=== PATIENT | female | born 1945 | race Caucasian/White ===

== ENCOUNTER → 2018-01-06 11:40 | Outpatient (REF) | payer MEDICARE, SELFPAY | LOC: LBN 11:40 | PROVIDERS: PCP Family Medicine; Visit Provider Family Medicine | DX: E11.40 Type 2 diabetes mellitus with diabetic neuropathy, unspecified (principal) | CPT/HCPCS: 83036 ==

== ENCOUNTER → 2018-01-07 11:36 | Outpatient (REF) | payer MEDICARE, SELFPAY ==
[2018-01-07 12:29] LABS: TSH (W/Ref FT4) 9.11 uIU/mL (0.358-3.74)
== END ==
LOC: LBN 11:36
PROVIDERS: PCP Family Medicine; Visit Provider Family Medicine
DX: R63.5 Abnormal weight gain (principal)
CPT/HCPCS: 84439; 84443

== ENCOUNTER 2018-02-19 08:10 | Outpatient (REF) | payer MEDICARE, SELFPAY ==
[2018-02-19 08:47] LABS: Hemoglobin A1C 7.6 % (4.5-6.2)
== END 2018-02-19 08:30 ==
LOC: LBN 08:10
PROVIDERS: PCP Family Medicine; Visit Provider Family Medicine
DX: E11.40 Type 2 diabetes mellitus with diabetic neuropathy, unspecified (principal)
CPT/HCPCS: 83036

== ENCOUNTER 2018-05-15 11:41 | Outpatient (REF) | payer MEDICARE, SELFPAY | END 2018-05-15 12:01 | LOC: LBN 11:41 | PROVIDERS: PCP Family Medicine; Visit Provider Family Medicine | DX: N39.0 Urinary tract infection, site not specified (principal) | CPT/HCPCS: 87077; 87086; 87186 ==

== ENCOUNTER 2018-05-19 15:16 | Outpatient (REF) | payer MEDICARE, BC, SELFPAY ==
[2018-05-19 15:37] LABS: Abs Immature Grans 0.01 k/cumm (0.0-0.09); Absolute Basophil Count 0.04 k/cumm (0.0-0.2); Absolute Eosinophil Count 0.28 k/cumm (0.0-0.7); Absolute Lymphocyte Count 1.46 k/cumm (1.2-3.4); Absolute Monocyte Count 0.52 k/cumm (0.11-0.7); Absolute Neutrophil Count 4.12 k/cumm (1.2-6.7); Basophils % 0.6; Eosinophils % 4.4; HCT 45.2 % (36.0-46.0); HGB 14.5 g/dL (12.0-15.5); Immature Grans % 0.2; Lymphocytes % 22.7; Mean Corp. HGB Concentration 32.1 g/dL (32.0-36.0); Mean Corpuscular Hemoglobin 30.9 pg (27.0-33.0); Mean Corpuscular Volume 96.2 fL (80-95); Mean Platelet Volume 12.8 fL (8.0-11.0); Monocytes % 8.1; Platelet Count 151 x1000/uL (130-400); RBC Distribution Width 13.4 % (11.7-14.6); White Blood Cell Count 6.43 k/cumm (4.4-10.8)
[2018-05-19 15:56] LABS: ALT 35 U/L (12-78); AST 25 U/L (15-37); Alkaline Phosphatase 94 U/L (46-116); Anion Gap 9.4 mmol/L (3-11); BUN 28 mg/dL (7-18); Bilirubin, Total 0.3 mg/dL (0.2-1.0); CO2 27.6 mmol/L (21.0-32.0); Calcium 9.9 mg/dL (8.5-10.1); Chloride 106 mmol/L (98-107); Glucose 207 mg/dL (70-100); Potassium 4.2 mmol/L (3.5-5.1); Sodium 143 mmol/L (136-145); TSH (W/Ref FT4) 10.89 uIU/mL (0.358-3.74)
[2018-05-19 16:16] LABS: FREE T4 1.08 ng/dL (0.76-1.46)
[2018-05-19 16:34] LABS: Hemoglobin A1C 7.8 % (4.5-6.2)
== END 2018-05-19 15:36 ==
LOC: LBN 15:16
PROVIDERS: PCP Family Medicine; Visit Provider Family Medicine
DX: I10 Essential (primary) hypertension (principal); E11.40 Type 2 diabetes mellitus with diabetic neuropathy, unspecified; R53.83 Other fatigue; R63.5 Abnormal weight gain
CPT/HCPCS: 80053; 83036; 84439; 84443; 85025

== ENCOUNTER 2018-05-27 01:19 | Outpatient (CLI) | payer MEDICARE, MEDICAID, SELFPAY ==
--- NOTE | 2018-05-27 09:56 | DI.RAD_ITS ---
SYMPTOMS/DIAGNOSIS: KNEE PAIN RIGHT KNEE: Three views. There is moderate narrowing of the lateral femorotibial joint space. Periarticular spurring is seen involving all three joint compartments. There does appear to be moderately severe narrowing of the patellofemoral joint. Chondrocalcinosis is present. Vascular calcifications are seen in the soft tissues. IMPRESSION: Moderately severe degenerative changes of the right knee. LEFT KNEE: Three views. There is mild joint space narrowing and periarticular spurring involving all three joint compartments. Chondrocalcinosis is seen in the femorotibial joint. The bones appear intact. Vascular calcifications are present. IMPRESSION: Moderate degenerative changes of the left knee.
== END 2018-05-27 01:39 ==
PROVIDERS: PCP Family Medicine; Visit Provider Family Medicine
DX: M25.561 Pain in right knee (principal); M25.562 Pain in left knee; M17.0 Bilateral primary osteoarthritis of knee
CPT/HCPCS: 73562

== ENCOUNTER 2018-06-09 11:15 | Emergency (ER) | payer MEDICARE, MEDICAID, SELFPAY ==
[2018-06-09 11:25] VITALS: BP 143/83; PULSE 101; RESP 16; TEMP 36.4; O2SAT 96
--- NOTE | 2018-06-09 11:39 | DI.RAD_ITS ---
SYMPTOMS/DIAGNOSIS: FALL ON KNEE, TENDER TO PALPATION OVER PATELLA AND LATERAL ELBOW LEFT ELBOW: Three views. No priors. There is a comminuted oblique fracture of the lateral aspect of the distal humerus. It appears to extend from the lateral supracondylar region inferiorly and medially to the intercondylar region of the left humerus. The fracture appears comminuted. The largest fracture fragment is significantly displaced proximally and appears to be rotated. There also are osseous fragments seen at the region of the olecranon which may represent a nondisplaced fracture. There is soft tissue swelling noted. IMPRESSION: 1. Comminuted displaced fracture involving the lateral aspect of the distal left humerus. 2. Question of an ulnar olecranon fracture. RIGHT KNEE: Four views. No acute fracture or dislocation is seen. There is periarticular spurring involving all three joint compartments. Moderate narrowing of the lateral femoral tibial joint space and marked narrowing of the patellofemoral joint space is noted. No acute fracture or dislocation. There are vascular calcifications present. There is edema seen in the prepatellar soft tissues. IMPRESSION: 1. No acute fracture or dislocation. 2. Moderately severe osteoarthritis of the right knee.
--- NOTE | 2018-06-09 11:41 | W.ED.GENAD ---
Discharge Plan Disposition Patient Disposition: HOME Discharge Details Chief Complaint: Orthopedic Clinical Impression: Closed fracture of left elbow, Contusion of knee, right Primary Care Provider: Yani Osman ED Provider: Tom Stanley Home Meds and New Rx's Prescriptions: Continued atorvastatin 80 MG tablet 40 mg PO DAILY RF: 0 blood-glucose meter [Contour Next USB Meter] 1 EACH misc 1 ea Miscellaneous DAILY RF: 0 lancets 1 EACH misc 1 ea Miscellaneous DAILY Qty: 100 RF: 0 aspirin [Aspirin Low-Strength] 81 MG tablet,chewable 81 mg PO DAILY RF: 0 Centrum Complete 1 EACH tablet 1 tab-cap PO DAILY RF: 0 biotin 10,000 MCG tablet,disintegrating PO DAILY RF: 0 Lactaid 3,000 UNIT tablet,chewable 9,000 unit PO AC RF: 0 Januvia 25 MG tablet 100 mg PO DAILY RF: 0 sulfasalazine 500 mg Tablet 500 mg PO BID RF: 0 cetirizine 10 mg Tablet 10 mg PO DAILY RF: 0 Lactaid Fast Act 9,000 unit Tablet 9,000 unit PO TID RF: 0 calcium polycarbophil [FiberCon] 625 mg Tablet 625 mg PO TID RF: 0 ergocalciferol (vitamin D2) [Vitamin D2] 50,000 unit Capsule 1 cap PO .MONTHLY RF: 0 levothyroxine 100 MCG tablet 112 mcg PO DAILY RF: 0 furosemide 20 MG tablet 10 mg PO DAILY Qty: 60 RF: 0 metoprolol succinate 25 MG tablet extended release 24 hr 12.5 mg PO DAILY Qty: 90 RF: 0 potassium chloride [Klor-Con M10] 10 MEQ tablet,ER particles/crystals 10 meq PO DAILY Qty: 30 RF: 0 Eliquis 5 MG tablet 5 mg PO BID Qty: 60 RF: 2 venlafaxine [Effexor XR] 37.5 MG capsule,extended release 24hr 37.5 mg PO DAILY Qty: 0 RF: 0 glimepiride 2 MG tablet 3 mg PO BID Qty: 0 RF: 0 Discharge Instructions Instructions: Elbow Fracture in Adults (ED), Fall Prevention for Older Adults (ED) Additional Instructions: Keep splint intact and use sling until you follow-up with orthopedics. Call orthopedics tomorrow to arrange follow-up appointment. Return to the ER for any worsening or new concerning symptoms. Referrals: Yani Osmna MD, DC [Primary Care Provider] - Wallace Kennedy MD [ [facility] STAFF PHYSICIAN] - Medical Decision Making 11:40 -- 73yo f here after fall this am with left elbow pain. Tenderness and crepitus over lateral elbow. N/V intact distally. Also with tenderness over patella. Patellar tendon function intact. Concern for fracture of left elbow. Plan to xray. Consider right patellar fx. Plan to xray. 12:50 -- Knee xray interpreted by radiology: neg. elbow xray interpreted by radiology: fracture. I called and spoke with Dr. Kennedy who reviewed xray and recommends CT elbow, splint, sling and outpt follow-up. CT elbow interpreted by radiology: FINDINGS: There is a comminuted fracture involving the distal humerus. The fracture extends from the lateral aspect of the lateral supracondylar region inferiorly and medially into the intercondylar region of the humerus. There is a large fracture component which appears displaced proximally. This fracture fragment appears to be composed of a portion of the articular surface of the trochlea. There are also fracture fragments more moderately displaced laterally. The proximal radius appears intact as does the proximal ulna. There is a curvilinear calcification adjacent to the acromion which does not appear to be a fracture fragment. This may reflect calcification within the triceps tendon. There is adjacent soft tissue swelling present. The bones appear normally mineralized. IMPRESSION: Comminuted displaced fracture involving the lateral aspect of the distal humerus as described above. Elbow splint and sling applied by me. Neurovasc intact post splint application. HPI General Mode of arrival: ambulatory. Date/Time Provider Initiated Documentation: 06/09/18 11:39. Limitations to Documentation: no limitations. Information obtained by: patient. HPI Narrative: 73-year-old female on [place] presents after mechanical trip and fall that occurred this morning it 830. Patient notes she tripped on a rug and fell to the ground. She landed on her knees and left elbow. Her chief complaint today is left elbow pain. Pain is moderate and worse on palpation and with attempted movement. Pain described as ache. She has no associated numbness or weakness of her fingers. She also notes some bilateral knee pain right greater than left. She did not hit her head during the fall, has no headache or neck pain. No back pain. No hip or pelvic pain. Related Data Home Medications Medication Instructions Recorded Confirmed atorvastatin 40 mg PO DAILY tab-cap 08/23/15 06/09/18 blood-glucose meter [Contour Next ea 08/23/15 06/07/17 USB Meter] lancets #100 ea 08/23/15 06/07/17 Centrum Complete 1 tab-cap PO DAILY tab-cap 10/13/15 06/09/18 aspirin [Aspirin Low-Strength] 81 mg PO DAILY tab-cap 10/13/15 06/09/18 biotin 0 PO DAILY 10/13/15 Lactaid 9,000 unit PO AC tab.chew 12/28/15 06/09/18 Eliquis 5 mg PO BID #60 tab 03/21/17 06/09/18 furosemide 10 mg PO DAILY #60 tab 03/21/17 06/09/18 glimepiride 3 mg PO BID #0 tab-cap 03/21/17 06/09/18 metoprolol succinate 12.5 mg PO DAILY #90 tabcr 03/21/17 06/09/18 potassium chloride [Klor-Con M10] 10 meq PO DAILY #30 tabcr 03/21/17 06/09/18 venlafaxine [Effexor XR] 37.5 mg PO DAILY #0 tab-cap 03/21/17 06/09/18 Januvia 100 mg PO DAILY 06/09/18 06/09/18 Lactaid Fast Act 9,000 unit PO TID 06/09/18 06/09/18 calcium polycarbophil [FiberCon] 625 mg PO TID 06/09/18 06/09/18 cetirizine 10 mg PO DAILY 06/09/18 06/09/18 ergocalciferol (vitamin D2) 1 cap PO .MONTHLY 06/09/18 06/09/18 [Vitamin D2] levothyroxine 112 mcg PO DAILY 06/09/18 06/09/18 sulfasalazine 500 mg PO BID 06/09/18 06/09/18 Previous Rx's Medication Instructions Recorded Eliquis 5 mg PO BID #60 tab 03/21/17 furosemide 10 mg PO DAILY #60 tab 03/21/17 glimepiride 3 mg PO BID #0 tab-cap 03/21/17 metoprolol succinate 12.5 mg PO DAILY #90 tabcr 03/21/17 potassium chloride [Klor-Con M10] 10 meq PO DAILY #30 tabcr 03/21/17 venlafaxine [Effexor XR] 37.5 mg PO DAILY #0 tab-cap 03/21/17 Allergies Allergy/AdvReac Type Severity Reaction Status Date / Time erythromycin base Allergy Unknown Verified 06/09/18 11:27 ibuprofen [From Motrin] Allergy Unknown Verified 06/09/18 11:27 lactose AdvReac Unknown Intolerance Unverified 06/09/18 11:27 opium tincture AdvReac Unknown Mental Unverified 06/09/18 11:27 Status Changes SEASONAL ALLERGIES Allergy Mild Uncoded 06/09/18 11:27 General Stated Complaint: Orthopedic ANASTACIA: 4 Review of Systems Musculoskeletal Reports as per HPI Integumentary/Breasts Reports other (no laceration) Neurologic Denies sensory deficit [facility] Medical History Chronic fatigue, unspecified DM II (diabetes mellitus, type II), controlled Essential hypertension Hyperlipidemia Hypothyroidism Lactose intolerance Obesity (BMI 30-39.9) Osteoarthritis of knee Other amnesia Surgical History Colonoscopy - MAC (06/07/17) Social History Smoking/Tobacco Use Status: Never Exam Const General: cooperative and no acute distress HENMT Head: normocephalic and atraumatic Mouth: moist mucous membranes Neck Neck: trachea midline and supple Resp Auscultation: clear to auscultation bilaterally, no rales, no rhonchi and no wheezes Cardio Rate: regular rate and not tachycardic Rhythm: regular rhythm Pulses: radial pulses present on the left 2+ Skin General skin exam: no rashes or lesions noted Neuro General: alert, awake, oriented x3 and tone normal Speech: speech normal Sensory Exam: no sensory deficits noted (distal LUE) Extrem General: no edema Left upper extremity: elbow/forearm Details: tenderness Location: of the lateral epicondyle, swelling Location: of the distal humerus and of the lateral epicondyle and abnormal ROM Details: held in an abnormal fashion Details: in flexion and in pronation and pain with passive ROM Details: with extension and with supination; no lacerations Right lower extremity: knee Details: tenderness Location: of the patella Details: inferiorly, normal ROM, knee ligament exam normal and ecchymosis (bruise anteriorly); no swelling and no crepitus Course Vital Signs Temperature 36.4 C L 06/09/18 11:25 Pulse 101 H 06/09/18 11:25 Respiratory Rate 16 06/09/18 11:25 Blood Pressure 143/83 H 06/09/18 11:25 Pulse Oximetry 96 06/09/18 11:25 Temperature 36.4 C L 06/09/18 11:25 Temperature Source Skin 06/09/18 11:25 Pulse 101 H 06/09/18 11:25 Respiratory Rate 16 06/09/18 11:25 Respiratory Effort 06/09/18 11:25 Blood Pressure 143/83 H 06/09/18 11:25 Blood Pressure Position Sitting 06/09/18 11:25 Pulse Oximetry 96 06/09/18 11:25 Oxygen Delivery Method Room Air 06/09/18 11:25 Oxygen Flow Rate 0 06/09/18 11:25 Pain Level 8 06/09/18 11:25
--- NOTE | 2018-06-09 12:44 | DI.CT_ITS ---
SYMPTOMS/DIAGNOSIS: FRACTURE ELBOW, ORTHO REQUESTS CT CT SCAN OF THE LEFT ELBOW: Multiple contiguous axial images of the left elbow were obtained. Sagittal and coronal reformatted images were evaluated on the Siemens workstation. The study is limited due to patient positioning. The patient was unable to straighten her arm. The elbow is held in flexion during the examination. There is artifact from the patient's body. FINDINGS: There is a comminuted fracture involving the distal humerus. The fracture extends from the lateral aspect of the lateral supracondylar region inferiorly and medially into the intercondylar region of the humerus. There is a large fracture component which appears displaced proximally. This fracture fragment appears to be composed of a portion of the articular surface of the trochlea. There are also fracture fragments more moderately displaced laterally. The proximal radius appears intact as does the proximal ulna. There is a curvilinear calcification adjacent to the acromion which does not appear to be a fracture fragment. This may reflect calcification within the triceps tendon. There is adjacent soft tissue swelling present. The bones appear normally mineralized. IMPRESSION: Comminuted displaced fracture involving the lateral aspect of the distal humerus as described above.
[2018-06-09] MEDS: Acetaminophen 325 MG TAB 650 MG PO (12:59)
--- NOTE | 2018-06-09 14:33 | PDOC.ERCMPRO ---
Care Management Progress Note 06/09-Selin came to the emergency department today after a fall. She resides in Level 3 at the [facility]. Selin has a closed fracture of the left elbow. Selin will need ortho follow up, she has been placed on Dr. Kennedy's list. Dr. Kennedy's office will call the [facility] for f/u. Called the [facility] and spoke with Ashleigh. Ashleigh states she will call Selin's sister to come and pick her up. Also discussed calling report. Ashleigh requested that nursing call the [facility] and ask for Level 3, then ask for the charge nurse. Shonna Ching RN is aware and will call report to the [facility].
== END 2018-06-09 15:39 | disposition home or self-care (01) ==
PROVIDERS: Emergency Provider Student in an Organized Health Care Education/Training Program; PCP Family Medicine
DX: S42.422A Displaced comminuted supracondylar fracture without intercondylar fracture of left humerus, initial encounter for closed fracture (principal); S80.01XA Contusion of right knee, initial encounter; W01.198A Fall on same level from slipping, tripping and stumbling with subsequent striking against other object, initial encounter; E11.9 Type 2 diabetes mellitus without complications; Z79.84 Long term (current) use of oral hypoglycemic drugs; I10 Essential (primary) hypertension
CPT/HCPCS: 99284; 73080; 73200; 73564; L3650

== ENCOUNTER 2018-06-16 12:50 | Outpatient (REF) | payer MEDICARE, MEDICAID, SELFPAY ==
[2018-06-16 14:15] LABS: Bilirubin Negative (Negative); Blood Negative (Negative); Clarity Cloudy; Glucose Negative (Negative); Ketones Trace mg/dL (Negative); Leukocyte Esterase Trace (Negative); Nitrite Negative (Negative); Specific Gravity >= 1.030 (1.005-1.025); Urobilinogen 0.2 EU/dL (Up TO 0.2); pH 5.5 (5-8)
[2018-06-16 14:36] LABS: Bacteria Few HPF (Negative); C & S Indicated? Yes; Casts Negative LPF (Negative); Crystals Many Amorphous HPF (Negative); Epithelial Cells Rare HPF (Negative); Mucus Trace (Negative); RBC Negative (0-2)
== END 2018-06-16 13:10 ==
LOC: LBN 12:50
PROVIDERS: PCP Family Medicine; Visit Provider Family Medicine
DX: N39.0 Urinary tract infection, site not specified (principal)
CPT/HCPCS: 87077; 81003; 81015; 87086; 87186

== ENCOUNTER 2018-06-16 13:23 | Emergency (ER) | payer MEDICARE, MEDICAID, SELFPAY ==
[2018-06-16 13:25] VITALS: BP 143/76; PULSE 108; RESP 16; TEMP 36.6; O2SAT 96
--- NOTE | 2018-06-16 14:28 | W.ED.GENAD ---
Discharge Plan Disposition Patient Disposition: HOME Condition: Stable Discharge Details Chief Complaint: Orthopedic Clinical Impression: Swelling of left hand, History of humerus fracture, UTI (urinary tract infection) Reason For Visit: SUNDEEP Primary Care Provider: Yani Osman ED Provider: Mariza Swartz Home Meds and New Rx's Prescriptions: New cephalexin [Keflex] 500 mg capsule 500 mg PO BID 5 Days Qty: 10 RF: 0 Continued atorvastatin 80 MG tablet 40 mg PO DAILY RF: 0 blood-glucose meter [Contour Next USB Meter] 1 EACH misc 1 ea Miscellaneous DAILY RF: 0 lancets 1 EACH misc 1 ea Miscellaneous DAILY Qty: 100 RF: 0 aspirin [Aspirin Low-Strength] 81 MG tablet,chewable 81 mg PO DAILY RF: 0 Centrum Complete 1 EACH tablet 1 tab-cap PO DAILY RF: 0 biotin 10,000 MCG tablet,disintegrating PO DAILY RF: 0 Lactaid 3,000 UNIT tablet,chewable 9,000 unit PO AC RF: 0 Januvia 25 MG tablet 100 mg PO DAILY RF: 0 sulfasalazine 500 mg Tablet 500 mg PO BID RF: 0 cetirizine 10 mg Tablet 10 mg PO DAILY RF: 0 Lactaid Fast Act 9,000 unit Tablet 9,000 unit PO TID RF: 0 calcium polycarbophil [FiberCon] 625 mg Tablet 625 mg PO TID RF: 0 ergocalciferol (vitamin D2) [Vitamin D2] 50,000 unit Capsule 1 cap PO .MONTHLY RF: 0 levothyroxine 100 MCG tablet 112 mcg PO DAILY RF: 0 furosemide 20 MG tablet 10 mg PO DAILY Qty: 60 RF: 0 metoprolol succinate 25 MG tablet extended release 24 hr 12.5 mg PO DAILY Qty: 90 RF: 0 potassium chloride [Klor-Con M10] 10 MEQ tablet,ER particles/crystals 10 meq PO DAILY Qty: 30 RF: 0 Eliquis 5 MG tablet 5 mg PO BID Qty: 60 RF: 2 venlafaxine [Effexor XR] 37.5 MG capsule,extended release 24hr 37.5 mg PO DAILY Qty: 0 RF: 0 glimepiride 2 MG tablet 3 mg PO BID Qty: 0 RF: 0 Discharge Instructions Instructions: Arm Fracture in Adults (ED), Urinary Tract Infection in Women (ED) Additional Instructions: Keep the Ed wrap in place from your hand to your upper arm. You possibly have a urinary tract infection. Your urine was sent for a culture. You have been started on antibiotics for this. If your culture is negative or recommends a different antibiotic, you will be notified. Follow-up with your scheduled appointment with the orthopedist Dr. Ford tomorrow. Return immediately to the emergency department with any worsening or new concerning symptoms. Discharge Data Discharge Date/Time-TO BE ENTERED AT DEPARTURE: 06/16/18 16:38 Discharge Physician: Mariza Swartz Medical Decision Making 73-year-old female 1 week s/p distal humerus fracture who presents for evaluation of progressive left hand swelling. Patient has a history of dementia and is from the [facility] and has an appointment with Dr. Ford tomorrow for this left hand swelling. There was some reports from EMS that nursing staff was concerned about confusion. Patient does admit to this and states she has a history of dementia, but states she thought it was dark in her room and was midnight but it was noon, and she states that maybe where the confusion came from. Otherwise she is alert and oriented x3 and is able to describe her fall last week, her progressive hand swelling over the past few days, and that she has an appointment with orthopedics tomorrow. She has no focal deficits, no meningeal signs, and no other acute complaints. There is a note in the computer today from Dr. Osman and her assessment of patient notes that she is confused at times which appears to be her baseline mental status recently but was found today to be competent to make decisions. Discussed with Dr. Ford and he recommends that Ed wrap be placed from distal hand up to upper arm. The Ed wrap had been in her mid forearm, so the distal Ed wrap will likely help with some swelling. He states that as patient is on Eliquis, she may need different orthopedic referral. He will evaluate patient in the office tomorrow and discuss this with her further. No other acute recommendations at this time. Pt states she had a cath specimen urinalysis done yesterday at the group home. Urinalysis just resulted in the computer from yesterday and does note 5-10 WBCs, trace leukocyte esterase, and sent for urine culture. Patient has no urinary symptoms, fever and appears nontoxic. Repeat heart rate 90s. Will give a dose of Keflex and send back to [facility] with Keflex prescription. Medical Records Medical records reviewed: Yes I reviewed the patient's medical records. Lab Data Lab results reviewed: Yes I reviewed the patient's lab results. HPI General Mode of arrival: EMS. Date/Time Provider Initiated Documentation: 06/16/18 13:38. Limitations to Documentation: no limitations. Information obtained by: patient. HPI Narrative: Patient is a 71-year-old female with a history of Alzheimer's dementia, diabetes, hypertension, high cholesterol, hypothyroidism, obesity who presents for evaluation of left hand swelling status post left distal humerus fracture 1 week ago. Patient was seen in the ED at that time and had a long arm splint placed. She states she has had progressive left hand swelling since then. She denies any numbness or worsening pain. Patient was sent from the [facility] for this evaluation. She does have an appoint with Dr. Ford tomorrow in the office for this worsening left hand swelling. There is also some reports that nursing staff was concerned about some confusion. Patient has a history of Alzheimer's dementia. She states she had a urine catheter specimen done at the [facility] yesterday. Patient states she is aware of some of her confusion at times but she is able to states she understands why she is here and otherwise states she denies any fever, chest pain, shortness of breath, abdominal pain, urinary symptoms and states she has been eating and drinking normally. Related Data Home Medications Medication Instructions Recorded Confirmed atorvastatin 40 mg PO DAILY tab-cap 08/23/15 06/09/18 blood-glucose meter [Contour Next ea 08/23/15 06/07/17 USB Meter] lancets #100 ea 08/23/15 06/07/17 Centrum Complete 1 tab-cap PO DAILY tab-cap 10/13/15 06/09/18 aspirin [Aspirin Low-Strength] 81 mg PO DAILY tab-cap 10/13/15 06/09/18 biotin 0 PO DAILY 10/13/15 Lactaid 9,000 unit PO AC tab.chew 12/28/15 06/09/18 Eliquis 5 mg PO BID #60 tab 03/21/17 06/09/18 furosemide 10 mg PO DAILY #60 tab 03/21/17 06/09/18 glimepiride 3 mg PO BID #0 tab-cap 03/21/17 06/09/18 metoprolol succinate 12.5 mg PO DAILY #90 tabcr 03/21/17 06/09/18 potassium chloride [Klor-Con M10] 10 meq PO DAILY #30 tabcr 03/21/17 06/09/18 venlafaxine [Effexor XR] 37.5 mg PO DAILY #0 tab-cap 03/21/17 06/09/18 Januvia 100 mg PO DAILY 06/09/18 06/09/18 Lactaid Fast Act 9,000 unit PO TID 06/09/18 06/09/18 calcium polycarbophil [FiberCon] 625 mg PO TID 06/09/18 06/09/18 cetirizine 10 mg PO DAILY 06/09/18 06/09/18 ergocalciferol (vitamin D2) 1 cap PO .MONTHLY 06/09/18 06/09/18 [Vitamin D2] levothyroxine 112 mcg PO DAILY 06/09/18 06/09/18 sulfasalazine 500 mg PO BID 06/09/18 06/09/18 cephalexin [Keflex] 500 mg PO BID 5 Days #10 cap 06/16/18 Previous Rx's Medication Instructions Recorded Eliquis 5 mg PO BID #60 tab 03/21/17 furosemide 10 mg PO DAILY #60 tab 03/21/17 glimepiride 3 mg PO BID #0 tab-cap 03/21/17 metoprolol succinate 12.5 mg PO DAILY #90 tabcr 03/21/17 potassium chloride [Klor-Con M10] 10 meq PO DAILY #30 tabcr 03/21/17 venlafaxine [Effexor XR] 37.5 mg PO DAILY #0 tab-cap 03/21/17 cephalexin [Keflex] 500 mg PO BID 5 Days #10 cap 06/16/18 Allergies Allergy/AdvReac Type Severity Reaction Status Date / Time erythromycin base Allergy Unknown Verified 06/09/18 11:27 ibuprofen [From Motrin] Allergy Unknown Verified 06/09/18 11:27 lactose AdvReac Unknown Intolerance Unverified 06/09/18 11:27 opium tincture AdvReac Unknown Mental Unverified 06/09/18 11:27 Status Changes SEASONAL ALLERGIES Allergy Mild Uncoded 06/09/18 11:27 General Stated Complaint: Orthopedic ANASTACIA: 4 Review of Systems Review of Systems All systems reviewed & are unremarkable except as noted in HPI and below Constitutional Reports as per HPI, Denies chills and Denies fever(s) Eyes Denies blurry vision ENT Denies dizziness, Denies sore throat and Denies throat swelling Cardiovascular Denies chest pain and Denies dyspnea Respiratory Denies dyspnea Gastrointestinal Denies abdominal pain, Denies diarrhea and Denies vomiting Genitourinary Denies hematuria and Denies dysuria Musculoskeletal Denies back pain, Denies numbness and Reports other (Left hand swelling) Integumentary/Breasts Denies lesions and Denies rash Neurologic Denies dizziness and Denies numbness Allergic/Immunologic Denies throat swelling [facility] Medical History Chronic fatigue, unspecified DM II (diabetes mellitus, type II), controlled Essential hypertension Hyperlipidemia Hypothyroidism Lactose intolerance Obesity (BMI 30-39.9) Osteoarthritis of knee Other amnesia Surgical History History of laminectomy (Acute) Colonoscopy - MAC (06/07/17) Social History Smoking/Tobacco Use Status: Never alcohol intake: current alcohol intake frequency: holidays/special occasions only substance use type: does not use Exam Const General: cooperative, healthy appearing and no acute distress HENMN Head: normal to inspection Face and sinus: normal facial exam Eyes General: appearance normal, both eyes and all related structures Pupils: PERRL EOM: EOM intact bilaterally Neck Neck: normal visual inspection and No submandibular swelling Lymphatic: no lymphadenopathy noted Chest Chest: normal inspection of the chest and no tenderness Resp Effort & Inspection: normal respiratory effort and able to speak in complete sentences Auscultation: clear to auscultation bilaterally Cardio Rate: regular rate Rhythm: regular rhythm GI Inspection: normal to inspection Palpation: soft, not firm, not rigid and nontender Auscultation: normal bowel sounds Skin General skin exam: no rashes or lesions noted Neuro General: alert, awake and oriented x3 Cognition: normal cognition Speech: speech normal Motor: muscle tone normal throughout Sensory Exam: no sensory deficits noted Extrem Other: Left upper extremity in a posterior long-arm splint. Moderate left hand edema noted but is nonpitting. Normal cap refill left hand. Left radial and ulnar pulses intact. Healing ecchymosis noted to left upper arm above splint Psych Appearance: grossly normal Mental Status: mental status grossly normal Speech and Movement: speech and movement normal Affect: normal affect Course Vital Signs Temperature 97.9 F 06/16/18 13:25 Pulse 108 H 06/16/18 13:25 Respiratory Rate 16 06/16/18 13:25 Blood Pressure 143/76 H 06/16/18 13:25 Pulse Oximetry 96 06/16/18 13:25 Temperature 97.9 F 06/16/18 13:25 Temperature Source Temporal Artery Scan 06/16/18 13:25 Pulse 108 H 06/16/18 13:25 Respiratory Rate 16 06/16/18 13:25 Respiratory Effort 06/16/18 13:29 Blood Pressure 143/76 H 06/16/18 13:25 Blood Pressure Position Sitting 06/16/18 13:25 Pulse Oximetry 96 06/16/18 13:25 Oxygen Delivery Method Room Air 06/16/18 13:25 Oxygen Flow Rate 0 06/16/18 13:25 Pain Level 6 06/16/18 13:25
--- NOTE | 2018-06-16 14:39 | NUR.NOTE ---
pt came in with sling on left arm and ulnar gutter splint and left arm she stated that she just cant keep it up and ice on it she didn't think she needed it Nursing Note:
[2018-06-16 15:49] VITALS: BP 132/84; PULSE 98; RESP 16; TEMP 36.9; O2SAT 95
[2018-06-16] MEDS: Cephalexin 500 MG CAP PO (15:56)
== END 2018-06-16 16:38 | disposition home or self-care (01) ==
PROVIDERS: Emergency Provider Physician Assistant; PCP Family Medicine
DX: R22.32 Localized swelling, mass and lump, left upper limb (principal); S42.422 Displaced comminuted supracondylar fracture without intercondylar fracture of left humerus; N39.0 Urinary tract infection, site not specified; F02.80 Dementia in other diseases classified elsewhere, unspecified severity, without behavioral disturbance, psychotic disturbance, mood disturbance, and anxiety; G30.9 Alzheimer's disease, unspecified
CPT/HCPCS: 99283

== ENCOUNTER → 2018-06-17 09:51 | Outpatient (BNVA) | payer MEDICARE, MEDICAID, SELFPAY | PROVIDERS: PCP Family Medicine; Referring Provider Family Medicine; Visit Provider Orthopaedic Surgery | DX: S42.402A Unspecified fracture of lower end of left humerus, initial encounter for closed fracture (principal); W01.0XXA Fall on same level from slipping, tripping and stumbling without subsequent striking against object, initial encounter; E11.9 Type 2 diabetes mellitus without complications; Z79.84 Long term (current) use of oral hypoglycemic drugs; Z79.01 Long term (current) use of anticoagulants; I10 Essential (primary) hypertension | CPT/HCPCS: 29105; 99201; 99214; Q4018 ==

== ENCOUNTER 2018-06-23 11:35 | Outpatient (REF) | payer MEDICARE, MEDICAID, SELFPAY ==
[2018-06-23 13:50] LABS: TSH (W/Ref FT4) 10.09 uIU/mL (0.358-3.74)
[2018-06-23 14:12] LABS: FREE T4 1.09 ng/dL (0.76-1.46)
== END 2018-06-23 11:55 ==
LOC: LBN 11:35
PROVIDERS: PCP Family Medicine; Visit Provider Family Medicine
DX: R63.5 Abnormal weight gain (principal)
CPT/HCPCS: 84439; 84443

== ENCOUNTER 2018-08-28 12:29 | Outpatient (REF) | payer MEDICARE, MEDICAID, SELFPAY ==
[2018-08-28 13:51] LABS: Hemoglobin A1C 7.4 % (4.5-6.2)
== END 2018-08-28 12:49 ==
LOC: LBN 12:29
PROVIDERS: PCP Family Medicine; Visit Provider Family Medicine
DX: E11.40 Type 2 diabetes mellitus with diabetic neuropathy, unspecified (principal)
CPT/HCPCS: 83036

== ENCOUNTER 2018-12-19 11:25 | Outpatient (REF) | payer MEDICARE, MEDICAID, SELFPAY ==
[2018-12-19 12:03] LABS: HCT 43.3 % (36.0-46.0)
[2018-12-19 12:22] LABS: ALT 32 U/L (12-78); AST 19 U/L (15-37); Albumin 3.6 g/dL (3.4-5.0); Alkaline Phosphatase 94 U/L (46-116); Anion Gap 9.2 mmol/L (3-11); BUN 14 mg/dL (7-18); Bilirubin, Total 0.5 mg/dL (0.2-1.0); CO2 25.8 mmol/L (21.0-32.0); Calcium 9.4 mg/dL (8.5-10.1); Chloride 107 mmol/L (98-107); Glucose 175 mg/dL (70-100); Potassium 3.9 mmol/L (3.5-5.1); Sodium 142 mmol/L (136-145); Total Protein 6.6 g/dL (6.4-8.2)
[2018-12-19 12:24] LABS: Hemoglobin A1C 6.6 % (4.5-6.2)
[2018-12-19 12:38] LABS: FREE T4 1.19 ng/dL (0.76-1.46)
== END 2018-12-19 11:45 ==
LOC: LBN 11:25
PROVIDERS: PCP Family Medicine; Visit Provider Family Medicine
DX: E11.9 Type 2 diabetes mellitus without complications (principal); R53.83 Other fatigue; I48.91 Unspecified atrial fibrillation
CPT/HCPCS: 80053; 83036; 84439; 84443; 85014; 85018

== ENCOUNTER 2019-01-14 15:53 | Outpatient (REF) | payer MEDICARE, MEDICAID, SELFPAY ==
[2019-01-14 15:01] LABS: FREE T4 1.16 ng/dL (0.76-1.46)
== END 2019-01-14 16:13 ==
LOC: LBN 15:53
PROVIDERS: PCP Family Medicine; Visit Provider Family Medicine
DX: E03.9 Hypothyroidism, unspecified (principal)
CPT/HCPCS: 84439; 84443

== ENCOUNTER 2019-03-16 12:25 | Outpatient (REF) | payer MEDICARE, MEDICAID, SELFPAY ==
[2019-03-16 13:20] LABS: TSH (W/Ref FT4) 8.57 uIU/mL (0.36-3.74)
[2019-03-16 13:53] LABS: FREE T4 0.96 ng/dL (0.76-1.46)
== END 2019-03-16 12:45 ==
LOC: LBN 12:25
PROVIDERS: PCP Family Medicine; Visit Provider Family Medicine
DX: E03.9 Hypothyroidism, unspecified (principal)
CPT/HCPCS: 84439; 84443

== ENCOUNTER 2019-04-01 16:45 | Emergency (ER) | payer MEDICARE, MEDICAID, SELFPAY ==
[2019-04-01 16:50] VITALS: BP 122/78; PULSE 102; RESP 20; TEMP 37; O2SAT 97
--- NOTE | 2019-04-01 17:01 | DI.CT_ITS ---
EXAM: CT HEAD WO CLINICAL HISTORY: trauma TECHNIQUE: Noncontrast COMPARISON: No exams were available for comparison FINDINGS: No intracranial hemorrhage, mass or infarct is. There is prominent atrophy. White matter changes o f small vessel disease is also noted. The ventricles are normal in size given degree of atrophy. Th ere is no evidence of skull fracture. The sinuses and mastoid air cells are unremarkable. IMPRESSION: Atrophy and small vessel disease of white matter. No acute abnormality.
--- NOTE | 2019-04-01 17:05 | W.ED.GENAD ---
Discharge Plan Disposition Patient Disposition: SNF (LEVEL 1) [facility] Condition: Good Discharge Details Chief Complaint: HeadInjury Clinical Impression: Contusion of head Primary Care Provider: Yani Osman ED Provider: Tara Katz Home Meds and New Rx's Prescriptions: Continued atorvastatin 80 MG tablet 40 mg PO DAILY RF: 0 (DME) blood-glucose meter [Contour Next USB Meter] 1 EACH misc 1 ea Miscellaneous DAILY RF: 0 (DME) lancets 1 EACH misc 1 ea Miscellaneous DAILY Qty: 100 RF: 0 aspirin [Aspirin Low-Strength] 81 MG tablet,chewable 81 mg PO DAILY RF: 0 Centrum Complete 1 EACH tablet 1 tab-cap PO DAILY RF: 0 biotin 10,000 MCG tablet,disintegrating 0 PO DAILY RF: 0 Januvia 25 MG tablet 100 mg PO DAILY RF: 0 sulfasalazine 500 mg Tablet 500 mg PO BID RF: 0 cetirizine 10 mg Tablet 10 mg PO DAILY RF: 0 Lactaid Fast Act 9,000 unit Tablet 9,000 unit PO TID RF: 0 calcium polycarbophil [FiberCon] 625 mg Tablet 625 mg PO TID RF: 0 ergocalciferol (vitamin D2) [Vitamin D2] 50,000 unit Capsule 1 cap PO .MONTHLY RF: 0 levothyroxine 100 MCG tablet 112 mcg PO DAILY RF: 0 glucosamine sulfate [Synovacin] 500 mg Capsule 500 mg PO BID RF: 0 fluticasone propionate [Flonase Allergy Relief] 50 mcg/actuation [place],Suspension INTRANASAL RF: 0 diclofenac sodium [Voltaren] 1 % Gel 2 g TOPICAL QID RF: 0 metoprolol succinate 25 MG tablet extended release 24 hr 12.5 mg PO DAILY Qty: 90 RF: 0 potassium chloride [Klor-Con M10] 10 MEQ tablet,ER particles/crystals 10 meq PO DAILY Qty: 30 RF: 0 Eliquis 5 MG tablet 5 mg PO BID Qty: 60 RF: 2 glimepiride 2 MG tablet 3 mg PO BID Qty: 0 RF: 0 Discharge Instructions Instructions: Contusion in Adults (ED) Additional Instructions: Encourage hydration. Urinalysis should be done as an outpatient as this was not able to be completed here. If you develop new or worsening symptoms seek care urgently once again. Otherwise, please follow-up with primary care. Referrals: Yani Osman MD, [place] [Primary Care Provider] - Discharge Data Discharge Date/Time-TO BE ENTERED AT DEPARTURE: 04/01/19 20:55 Medical Decision Making Patient is a 74-year-old female, typically resides in the [facility], presenting today with chief complaint of follow-up. Patient is baseline confused and has a history of Alzheimer's. Patient reports that she is been acting at her baseline since the fall. They do report that her mentation typically waxes and wanes. Patient is oriented to person and place but not to time. 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 Nursing staff noted her to have a area of swelling on the posterior scalp. Patient is denying any pain. Denies any visual changes. Denies any nausea vomiting. Is not having any pain elsewhere. On exam, she is quite pleasant, appears in no acute distress. She does have a small area of swelling to the posterior scalp but otherwise, trauma exam is normal. Patient believes she is anticoagulated but does not know why. As this is a concern, plan to obtain CT imaging to rule out intracranial pathology. Will also obtain laboratory evaluation is unclear exactly why the patient fell although it is suspected to be associated with her reaching into her closet Obtained medication list, patient is on Eliquis for atrial fibrillation. EKG obtained and reviewed by Dr. Pacheco. Patient is atrial fibrillation with a rate of 101. No acute ischemic changes noted. CT reviewed by radiologist: FINDINGS: Brain: Small vessel ischemic white matter changes of aging. No evidence for acute infarct. No evidence for acute hemorrhage. Ventricles: Mild to moderate ventriculomegaly and prominent cortical sulci. Bones/joints: Unremarkable. No acute fracture. Sinuses: Visualized sinuses are unremarkable. No fluid levels. Mastoid air cells: Visualized mastoid air cells are well aerated. Soft tissues: Unremarkable. IMPRESSION: No acute intracranial abnormality. Labs reviewed. No acute abnormality noted. She is remained stable and comfortable here. In an attempt to determine why the patient fell, UA was ordered but sample spilled. She is unable to give another sample at this time. She is uncomfortable in the bed and is requesting discharge. Patient can have UA completed at the [facility]. Discussed this with the nursing staff. Patient is requesting discharge. Given her level of confusion, I feel that transfer back to medical personnel is appropriate to ensure that she remains cooperative and give patient oriented. Outpatient urinalysis will be performed. They are given return precautions. Encourage hydration. Other questions and concerns were addressed she is agreement this plan. HPI General Mode of arrival: EMS. Date/Time Provider Initiated Documentation: 04/01/19 17:01. Limitations to Documentation: altered mental status. Information obtained by: patient, RN/MD (called [facility] to discuss) and RN notes reviewed. HPI Narrative: Patient is a pleasantly confused 74-year-old female, brought in via EMS, with history of hypertension, diabetes, hypothyroidism, Alzheimer's, presenting today after fall. Patient reports that she is on an anticoagulant but does not know which one. She believes that this is for atrial fibrillation but is unclear. I have requested medication problem list from the [facility] where patient resides. Is reported from [facility] nursing staff that the patient was in her room, ambulating with a walker and fell backwards. Did not witness the fall but rather heard the fall and found her unresponsive lying on the floor on her left side. He said that her closet door was open and they believe that she has been reaching for something although the patient was not able to tell them how she felt. They noted a bump on the back of her head and called EMS. He said that she was oriented and appropriate initially. They do report that the patient's dementia waxes and wanes and sometimes she is appropriately oriented but frequently is not. 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 She is denying any pain. No visual changes. No nausea. Denies any headache. Is doing quite well although patient is clearly confused. Related Data Home Medications Medication Instructions Recorded Confirmed atorvastatin 40 mg PO DAILY tab-cap 08/23/15 04/01/19 blood-glucose meter [Contour Next ea 08/23/15 04/01/19 USB Meter] lancets #100 ea 08/23/15 04/01/19 Centrum Complete 1 tab-cap PO DAILY tab-cap 10/13/15 04/01/19 aspirin [Aspirin Low-Strength] 81 mg PO DAILY tab-cap 10/13/15 04/01/19 biotin 0 PO DAILY 10/13/15 04/01/19 Eliquis 5 mg PO BID #60 tab 03/21/17 04/01/19 glimepiride 3 mg PO BID #0 tab-cap 03/21/17 04/01/19 metoprolol succinate 12.5 mg PO DAILY #90 tabcr 03/21/17 04/01/19 potassium chloride [Klor-Con M10] 10 meq PO DAILY #30 tabcr 03/21/17 04/01/19 Januvia 100 mg PO DAILY 06/09/18 04/01/19 Lactaid Fast Act 9,000 unit PO TID 06/09/18 04/01/19 calcium polycarbophil [FiberCon] 625 mg PO TID 06/09/18 04/01/19 cetirizine 10 mg PO DAILY 06/09/18 04/01/19 ergocalciferol (vitamin D2) 1 cap PO .MONTHLY 06/09/18 04/01/19 [Vitamin D2] levothyroxine 112 mcg PO DAILY 06/09/18 04/01/19 sulfasalazine 500 mg PO BID 06/09/18 04/01/19 diclofenac sodium [Voltaren] 2 g TOPICAL QID 04/01/19 04/01/19 fluticasone propionate [Flonase INTRANASAL 04/01/19 Allergy Relief] glucosamine sulfate [Synovacin] 500 mg PO BID 04/01/19 04/01/19 Previous Rx's Medication Instructions Recorded Eliquis 5 mg PO BID #60 tab 03/21/17 glimepiride 3 mg PO BID #0 tab-cap 03/21/17 metoprolol succinate 12.5 mg PO DAILY #90 tabcr 03/21/17 potassium chloride [Klor-Con M10] 10 meq PO DAILY #30 tabcr 03/21/17 Allergies Allergy/AdvReac Type Severity Reaction Status Date / Time erythromycin base Allergy Unknown Verified 04/01/19 10:55 ibuprofen [From Motrin] Allergy Unknown Verified 04/01/19 10:55 lactose AdvReac Unknown Intolerance Unverified 04/01/19 10:55 opium tincture AdvReac Unknown Mental Unverified 04/01/19 10:55 Status Changes SEASONAL ALLERGIES Allergy Mild Uncoded 04/01/19 10:55 General Stated Complaint: HeadInjury ANASTACIA: 3 Review of Systems Narrative: hx of Alzheimer's, recurrent confusion is reported to be at baseline per nursing report from the [facility]. Unobtainable due to mental status (hx of Alzheimer's, recurrent confusion is reported to be at baseline per nu) [facility] Medical History Chronic fatigue, unspecified DM II (diabetes mellitus, type II), controlled Essential hypertension Hyperlipidemia Hypothyroidism Lactose intolerance Obesity (BMI 30-39.9) Osteoarthritis of knee Other amnesia Surgical History Colonoscopy - MAC (06/07/17) History of laminectomy (Acute) Social History Smoking/Tobacco Use Status: Never Alcohol Intake: current Alcohol Intake frequency: holidays/special occasions only Drug use: Never Substance use type: does not use Current gender identity: female Do you feel safe in your relationship?: Yes Exam Const General: cooperative, healthy appearing, comfortable, no acute distress, well developed and well groomed Nutritional Appearance: average body habitus and well nourished Orientation: alert, awake, oriented to person, oriented to place, not oriented to time and confused (reports that she is the [employer] HEL[employer] working at the [facility], this was her previous empl) [facility] Head: normal to inspection, no palpable skull fracture and contusion Head images: 1. area of swelling and contusion Ears: hearing grossly normal bilaterally, external ears normal and TM's normal bilaterally General nose exam: external nose normal Face and sinus: normal facial exam and face symmetric Mouth: oral mucosae normal, lip normal and tongue normal Throat: posterior oropharynx normal Eyes General: appearance normal, both eyes and all related structures Visual Ey: normal visual ye by confrontation Alignment and Position: alignment normal Periorbital: periorbital findings normal Eyelids: eyelids normal Conjunctivae: conjunctivae normal Pupils: PERRL EOM: EOM intact bilaterally Neck Neck: normal visual inspection, full ROM, no lymphadenopathy, no meningeal signs, trachea midline and supple Chest Chest: normal inspection of the chest, normal palpation of entire chest wall, no crepitus and no localized rib tenderness Resp Effort & Inspection: normal respiratory effort, able to speak in complete sentences and no respiratory distress Auscultation: clear to auscultation bilaterally, no rales, no rhonchi and no wheezes Cardio Rate: regular rate Rhythm: regular rhythm Heart Sounds: S1 normal and S2 normal GI Inspection: normal to inspection, no abdominal wall ecchymosis, no edema and non-distended Palpation: soft, no hepatosplenomegaly, not firm, no guarding, no pulsatile masses, not rigid and nontender Auscultation: normal bowel sounds Back/Spine/Pelvis Back: no CVA tenderness Cervical Spine: normal cervical lordosis and cervical ROM normal Thoracic/Lumbar Spine: thoracic and lumbar spine normal to inspection, thoraco-lumbar ROM normal, No thoraco-lumbar ROM limited, No thoraco-lumbar spasm and No thoracic spinal tenderness Pelvis: no pain with anterior-posterior compression and no pain with lateral compression Skin General skin exam: ecchymosis (to posterior scalp) Neuro General: alert, awake, oriented Patient Orientation: Person, Place and Confused, gait normal, tone normal and moves all extremities Cranial Nerves: CN's II-XI intact bilaterally Cognition: normal cognition Speech: speech normal Motor: muscle tone normal throughout and strength 5/5 throughout Sensory Exam: no sensory deficits noted (no saddle paresthesias) Extrem General: normal to inspection, full ROM, normal capillary refill, no pedal edema and no calf tenderness Psych Appearance: grossly normal and well kempt Mental Status: mental status grossly normal Speech and Movement: speech and movement normal Course Vital Signs Vital signs: Vital Signs Pulse 80 04/01/19 16:50 Respiratory Rate 04/01/19 16:50 Blood Pressure 122/78 04/01/19 16:50 Pulse 80 04/01/19 16:50 Respiratory Rate 20 04/01/19 16:50 Blood Pressure 122/78 04/01/19 16:50 Pain Level 2 04/01/19 16:50
--- NOTE | 2019-04-01 17:45 | DI.VRAD_ITS ---
PROCEDURE INFORMATION: Exam: CT Head Without Contrast Exam date and time: 04/01/2019 5:03 PM Clinical history: 74 years old, female; Injury or trauma; Fall TECHNIQUE: Imaging protocol: Computed tomography of the head without contrast. COMPARISON: MRI - BRAIN WO CONTRAST 12/24/2015 16:55 FINDINGS: Brain: Small vessel ischemic white matter changes of aging. No evidence for acute infarct. No evidence for acute hemorrhage. Ventricles: Mild to moderate ventriculomegaly and prominent cortical sulci. Bones/joints: Unremarkable. No acute fracture. Sinuses: Visualized sinuses are unremarkable. No fluid levels. Mastoid air cells: Visualized mastoid air cells are well aerated. Soft tissues: Unremarkable. IMPRESSION: No acute intracranial abnormality. Dictated and Authenticated by: Riana Iglesias MD. Ordering:[id number] Pacheco MD
[2019-04-01] MEDS: Normal Saline Flush 10 ML SYR IVP (18:30)
[2019-04-01] MEDS: Normal Saline 1,000 ML 150 ML IV (18:30)
[2019-04-01 18:46] LABS: Abs Immature Grans 0.02 k/cumm (0.0-0.09); Absolute Basophil Count 0.01 k/cumm (0.0-0.2); Absolute Eosinophil Count 0.11 k/cumm (0.0-0.7); Absolute Monocyte Count 0.42 k/cumm (0.11-0.7); Basophils % 0.1; Eosinophils % 1.3; HCT 43.4 % (36.0-46.0); HGB 13.9 g/dL (12.0-15.5); Immature Grans % 0.2; Lymphocytes % 8.1; Mean Corpuscular Hemoglobin 30.6 pg (27.0-33.0); Mean Corpuscular Volume 95.6 fL (80-95); Monocytes % 4.8; Neutrophils % 85.5; Platelet Count 149 x1000/uL (130-400); RBC 4.54 m/cumm (4.00-5.20); RBC Distribution Width 13.5 % (11.7-14.6); White Blood Cell Count 8.66 k/cumm (4.4-10.8)
[2019-04-01 18:59] LABS: ALT 35 U/L (14-59); AST 21 U/L (15-37); Alkaline Phosphatase 109 U/L (46-116); Anion Gap 7.3 mmol/L (3-11); BUN 14 mg/dL (7-18); Bilirubin, Total 0.7 mg/dL (0.2-1.0); CO2 28.7 mmol/L (21.0-32.0); CREATININE 0.81 mg/dL (0.55-1.02); Calcium 9.8 mg/dL (8.5-10.1); Chloride 104 mmol/L (98-107); Glucose 189 mg/dL (70-100); Potassium 4.4 mmol/L (3.5-5.1); Sodium 140 mmol/L (136-145); Total Protein 7.6 g/dL (6.4-8.2)
--- NOTE | 2019-04-01 19:44 | NUR.NOTE ---
Nursing Note: Patient wanting IV out. Explained need for IV to remain. Patient agrees to leave in place. Patient repeated asks when she gets to go home. Pateint informed we are waiting for all test results to come back, then provider will be in to discuss results with her.
--- NOTE | 2019-04-01 20:10 | NUR.NOTE ---
Nursing Note: provider in with patient. Told her urine could be collected by [facility] and brought in for UA.
[2019-04-01 20:50] VITALS: BP 156/84; PULSE 86; RESP 18; O2SAT 95
== END 2019-04-01 20:55 | disposition skilled nursing facility (03) ==
PROVIDERS: Emergency Provider Physician Assistant; PCP Family Medicine
DX: R41.0 Disorientation, unspecified (principal); S00.03XA Contusion of scalp, initial encounter; W22.8XXA Striking against or struck by other objects, initial encounter; I10 Essential (primary) hypertension; E11.9 Type 2 diabetes mellitus without complications; I48.91 Unspecified atrial fibrillation; Z79.84 Long term (current) use of oral hypoglycemic drugs; M17.12 Unilateral primary osteoarthritis, left knee; M17.11 Unilateral primary osteoarthritis, right knee; M25.561 Pain in right knee; M25.562 Pain in left knee
CPT/HCPCS: 20610; 36415; 80053; 96360; 96361; 99214; 99284; 70450; 81003; 85025; J1040

== ENCOUNTER 2019-04-13 12:41 | Outpatient (REF) | payer MEDICARE, MEDICAID, SELFPAY ==
[2019-04-13 14:26] LABS: Bilirubin Negative (Negative); Blood Trace-intact (Negative); Clarity Sl Cloudy (Clear); Glucose 100 mg/dL (Negative); Ketones Negative (Negative); Leukocyte Esterase Trace (Negative); Nitrite Negative (Negative); Specific Gravity 1.025 (1.005-1.025); Urobilinogen 0.2 EU/dL (Up TO 0.2); pH 5.5 (5-8)
[2019-04-13 14:40] LABS: RBC 20-50 HPF (0-2); WBC >50 HPF (0-5)
[2019-04-13 14:41] LABS: Bacteria Many HPF (Negative); C & S Indicated? C&S Done As Ordered; Casts Negative LPF (Negative); Crystals Negative HPF (Negative); Epithelial Cells Few HPF (Negative); Mucus Negative (Negative)
== END 2019-04-13 13:01 ==
LOC: LBN 12:41
PROVIDERS: PCP Family Medicine; Visit Provider Nurse Practitioner Gerontology
DX: R35.0 Frequency of micturition (principal)
CPT/HCPCS: 87077; 81003; 81015; 87086; 87186

== ENCOUNTER 2019-06-09 12:54 | Outpatient (REF) | payer MEDICARE, MEDICAID, SELFPAY ==
[2019-06-09 13:54] LABS: Iron 64 ug/dL (50-170); Total Iron Binding Capacity 269 ug/dL (250-450); Transferrin Sat 24 % (15-50)
[2019-06-09 14:17] LABS: ALT 29 U/L (14-59); AST 16 U/L (15-37); Albumin 3.5 g/dL (3.4-5.0); Alkaline Phosphatase 100 U/L (46-116); Anion Gap 8.3 mmol/L (3-11); BUN 18 mg/dL (7-18); Bilirubin, Total 0.7 mg/dL (0.2-1.0); CO2 28.7 mmol/L (21.0-32.0); CREATININE 0.71 mg/dL (0.55-1.02); Calcium 9.5 mg/dL (8.5-10.1); Chloride 104 mmol/L (98-107); Ferritin 95 ng/mL (8-252); Glucose 288 mg/dL (74-106); Magnesium 1.6 mg/dL (1.8-2.4); Sodium 141 mmol/L (136-145); Total Protein 6.2 g/dL (6.4-8.2); Vitamin B12 559 pg/mL (193-986)
[2019-06-09 14:18] LABS: Hemoglobin A1C 9.2 % (3.8-5.6)
[2019-06-09 14:37] LABS: FREE T4 1.35 ng/dL (0.76-1.46)
== END 2019-06-09 13:14 ==
LOC: LBN 12:54
PROVIDERS: PCP Family Medicine; Visit Provider Family Medicine
DX: D64.9 Anemia, unspecified (principal); R53.83 Other fatigue; E03.9 Hypothyroidism, unspecified; I10 Essential (primary) hypertension; R63.4 Abnormal weight loss; E11.9 Type 2 diabetes mellitus without complications
CPT/HCPCS: 80053; 82607; 82728; 83036; 83540; 83550; 83735; 84439; 84443

== ENCOUNTER 2019-07-11 08:11 | Emergency (ER) | payer MEDICARE, MEDICAID, SELFPAY ==
[2019-07-11] VITALS (53 sets, daily range): BP systolic 115–155; BP diastolic 64–106; PULSE 78–137; RESP 8–34; TEMP 36–36.8; O2SAT 89–96
--- NOTE | 2019-07-11 08:28 | ED.GENADUL_ITS ---
Discharge Plan Disposition Patient Disposition: SNF (LEVEL 1) [facility] Condition: Stable Discharge Details Chief Complaint: Cellulitis Clinical Impression: Bilateral cellulitis of lower leg Primary Care Provider: Janeth Rosas ED Provider: Wicho Pacheco Home Meds and New Rx's Prescriptions: New cephalexin 500 mg capsule 500 mg PO TID 7 Days Qty: 21 RF: 0 Continued (DME) blood-glucose meter [Contour Next USB Meter] 1 EACH misc 1 ea Miscellaneous DAILY RF: 0 (DME) lancets 1 EACH misc 1 ea Miscellaneous DAILY Qty: 100 RF: 0 Centrum Complete 1 EACH tablet 1 tab-cap PO DAILY RF: 0 sulfasalazine 500 mg Tablet 500 mg PO BID RF: 0 cetirizine 10 mg Tablet 10 mg PO DAILY RF: 0 Lactaid Fast Act 9,000 unit Tablet 9,000 unit PO TID RF: 0 calcium polycarbophil [FiberCon] 625 mg Tablet 625 mg PO TID RF: 0 ergocalciferol (vitamin D2) [Vitamin D2] 50,000 unit Capsule 1 cap PO .WEEKLY X 8 WKS RF: 0 glucosamine sulfate [Synovacin] 500 mg Capsule 500 mg PO BID RF: 0 fluticasone propionate [Flonase Allergy Relief] 50 mcg/actuation [place],Suspension 1 spray INTRANASAL BID RF: 0 rivastigmine tartrate 1.5 mg Capsule 1.5 mg PO DAILY RF: 0 atorvastatin 40 mg Tablet 40 mg PO QPM RF: 0 cetirizine 10 mg Tablet 5 mg PO DAILY RF: 0 aspirin [Aspir-81] 81 mg Tablet,Delayed Release (Dr/Ec) 81 mg PO DAILY RF: 0 vitamin B complex Tablet 1 tab PO DAILY RF: 0 Januvia 100 mg Tablet 100 mg PO DAILY RF: 0 levothyroxine 150 mcg Tablet 150 mcg PO HS RF: 0 metoprolol succinate 25 MG tablet extended release 24 hr 12.5 mg PO DAILY Qty: 90 RF: 0 potassium chloride [Klor-Con M10] 10 MEQ tablet,ER particles/crystals 10 meq PO DAILY Qty: 30 RF: 0 Eliquis 5 MG tablet 5 mg PO BID Qty: 60 RF: 2 Discharge Instructions Instructions: Cellulitis (ED) Additional Instructions: In the ER today, you had blood cultures obtained which will result over the next 3 to 4 days time. You were given 1 dose of ceftriaxone IV, a single dose of 10 mg of Lasix IV as well as a dose of metoprolol 5 mg. Should continue all of your regular medications including Eliquis and metoprolol. Please take the Keflex as prescribed. You will benefit from having the legs elevated above the level of the heart. Return if you develop a fever, worsening redness/swelling, or any other acute concern. Medical Decision Making 74-year-old female presents from local longterm, [facility]. She is diabetic with history of atrial fibrillation, mild obesity, hyperlipidemia. Over the past 3 to 4 days she is noted bilateral lower extremity edema with discrete discomfort with flexion of the ankles. There is now a slightly overlying erythema. She arrives with a resting atrial fibrillation and mild tachycardia, no fever. Her exam is notable for edematous changes lower extremity with right greater than left erythema. She is anticoagulated with Eliquis. Differential diagnosis would include cellulitis, peripheral edema,, must exclude cardiac dysfunction. Do not feel DVT is significantly likely given that she is consistently anticoagulated with Eliquis. IV was placed, patient given a small fluid bolus, 5 mg of metoprolol, and basic labs with blood culture and screening lactate were obtained. Lactate discretely elevated at 1.6. Chemistries with noted of glucose 352, otherwise unremarkable. BNP is elevated at 1197 without comparison. Troponin is negative. Patient given 10 mg of Lasix. She was given 1 g of ceftriaxone. Given the slightly elevated lactic acidosis, warmth and erythema that is developed over the past 24 hours, do feel this is consistent with a cellulitis. We will treat her with a course of cephalosporin. Blood cultures will be pending. The slightly elevated BNP may be due to poor filling from borderline tachycardia secondary to A. fib. She should continue her metoprolol and consider increasing if pulse at rest remains high. The patient felt improved, she ate a breakfast meal with parish and eggs. Her pulse corrected to the 90s. Will discharge back to custodial facility. Lab Data Lab results reviewed: Yes I reviewed the patient's lab results. Labs: 07/11/19 08:59 Blood Blood Culture - Pending 07/11/19 08:40 Blood Blood Culture - Pending Laboratory Tests Range/Units 07/11/19 07/11/19 07/11/19 08:40 08:40 08:40 WBC (4.4-10.8) k/cumm 5.29 RBC (4.00-5.20) m/cumm 4.38 Hgb (12.0-15.5) g/dL 13.4 Hct (36.0-46.0) % 42.0 MCV (80-95) fL 95.9 H MCH (27.0-33.0) pg 30.6 MCHC (32.0-36.0) g/dL 31.9 L RDW (11.7-14.6) % 14.0 Plt Count (130-400) x1000/uL 135 MPV (8.0-11.0) fL 12.6 H Immature Gran % % 0.4 Neutrophils % 76.6 Lymphocytes % 13.0 Monocytes % 8.1 Eosinophils % 1.7 Basophils % 0.2 Absolute Neutrophils (1.2-6.7) k/cumm 4.05 Absolute Lymphocytes (1.2-3.4) k/cumm 0.69 L Absolute Monocytes (0.11-0.7) k/cumm 0.43 Absolute Eosinophils (0.0-0.7) k/cumm 0.09 Absolute Basophils (0.0-0.2) k/cumm 0.01 Sodium (136-145) mmol/L 142 Potassium (3.5-5.1) mmol/L 3.8 Chloride (98-107) mmol/L 105 Carbon Dioxide (21.0-32.0) mmol/L 27.8 Anion Gap (3-11) mmol/L 9.2 BUN (7-18) mg/dL 16 Creatinine (0.55-1.02) mg/dL 0.84 Estimated GFR/1.73 m2 (mL/min/1.73m2) >= 60.00 Glucose (74-106) mg/dL 352 H Lactate (0.6-1.4) mmol/L 1.6 H Calcium (8.5-10.1) mg/dL 9.2 Total Bilirubin (0.2-1.0) mg/dL 1.1 H AST (15-37) U/L 25 ALT (14-59) U/L 32 Alkaline Phosphatase (46-116) U/L 101 Troponin I (<0.06) ng/Ml < 0.05 NT-Pro-B Natriuret Pep (<300) pg/mL 1197 H Total Protein (6.4-8.2) g/dL 6.8 Albumin (3.4-5.0) g/dL 3.4 ECG Data Attestation: I personally reviewed and interpreted this ECG (s) as follows: Prior ECG tracings: available for review Interpretation: Atrial fibrillation with a rate of 118, the QRS is narrow, there is no ST segment elevation, PVCs present, underlying rhythm not significantly changed versus comparison April 01, 2019 [facility] General Mode of arrival: ambulatory . Date/Time Provider Initiated Documentation: 07/11/19 08:28 . Limitations to Documentation: no limitations . Information obtained by: patient . History of Present Illness 74 year old F presents to the emergency department with the chief complaint of Lower extremity edema, erythema x3 days, described as mild, Quality is described as dull and constant, and is localized to the left, right and lower extremity. Patient reports no radiation. Patient started experiencing this day(s) and it has been constant. No relieving factors improve symptom(s), No exacerbating factors reported . Patient notes denies chest pain, cough, fever/chills and shortness of breath. Patient did receive the following treatments prior to arrival, none Related Data Home Medications Medication Instructions Recorded Confirmed blood-glucose meter [Contour Next ea 08/23/15 04/01/19 USB Meter] lancets #100 ea 08/23/15 04/01/19 Centrum Complete 1 tab-cap PO DAILY tab-cap 10/13/15 07/11/19 Eliquis 5 mg PO BID #60 tab 03/21/17 07/11/19 metoprolol succinate 12.5 mg PO DAILY #90 tabcr 03/21/17 07/11/19 potassium chloride [Klor-Con M10] 10 meq PO DAILY #30 tabcr 03/21/17 07/11/19 Lactaid Fast Act 9,000 unit PO TID 06/09/18 07/11/19 calcium polycarbophil [FiberCon] 625 mg PO TID 06/09/18 07/11/19 cetirizine 10 mg PO DAILY 06/09/18 07/11/19 ergocalciferol (vitamin D2) 1 cap PO .WEEKLY X 8 WKS 06/09/18 07/11/19 [Vitamin D2] sulfasalazine 500 mg PO BID 06/09/18 07/11/19 fluticasone propionate [Flonase 1 spray INTRANASAL BID 04/01/19 07/11/19 Allergy Relief] glucosamine sulfate [Synovacin] 500 mg PO BID 04/01/19 07/11/19 Januvia 100 mg PO DAILY 07/11/19 07/11/19 aspirin [Aspir-81] 81 mg PO DAILY 07/11/19 07/11/19 atorvastatin 40 mg PO QPM 07/11/19 07/11/19 cephalexin 500 mg PO TID 7 Days #21 cap 07/11/19 cetirizine 5 mg PO DAILY 07/11/19 07/11/19 levothyroxine 150 mcg PO HS 07/11/19 07/11/19 rivastigmine tartrate 1.5 mg PO DAILY 07/11/19 07/11/19 vitamin B complex 1 tab PO DAILY 07/11/19 07/11/19 Previous Rx's Medication Instructions Recorded Eliquis 5 mg PO BID #60 tab 03/21/17 metoprolol succinate 12.5 mg PO DAILY #90 tabcr 03/21/17 potassium chloride [Klor-Con M10] 10 meq PO DAILY #30 tabcr 03/21/17 cephalexin 500 mg PO TID 7 Days #21 cap 07/11/19 Allergies Allergy/AdvReac Type Severity Reaction Status Date / Time erythromycin base Allergy Unknown Verified 07/11/19 08:15 ibuprofen [From Motrin] Allergy Unknown Verified 07/11/19 08:15 lactose AdvReac Unknown Intolerance Unverified 07/11/19 08:15 opium tincture AdvReac Unknown Mental Unverified 07/11/19 08:15 Status Changes SEASONAL ALLERGIES Allergy Mild Uncoded 07/11/19 08:15 General Stated Complaint: Cellulitis ANASTACIA: 3 Review of Systems Narrative: See HPI. No recent illness, no shortness of breath or chest pain. No syncope. She does take Eliquis. 8 systems reviewed and otherwise negative [facility] Medical History Chronic fatigue, unspecified DM II (diabetes mellitus, type II), controlled Essential hypertension Hyperlipidemia Hypothyroidism Lactose intolerance Obesity (BMI 30-39.9) Osteoarthritis of knee Other amnesia Social History Smoking/Tobacco Use Status: Never Alcohol Intake: current Alcohol Intake frequency: holidays/special occasions only Drug use: Never Substance use type: does not use Current gender identity: female Do you feel safe in your relationship?: Yes Exam Narrative Exam Narrative: GEN: awake, alert, oriented 3. Pleasant, well groomed, interactive. HEAD: Normocephalic, atraumatic ENT: Mucous membranes moist, oropharynx unremarkable, External ear exam unremarkable EYES: PERRL, EOMI NECK: Full ROM, no DUTCH, no menigismus CHEST/RESP: Nontender, clear to auscultation bilateral, no wheeze/rhonchi/rales CARDIOVASCULAR: Irregularly irregular, tachycardic, no murmur, rub varghese. 2+ Rad pulse bilateral ABDOMEN: Soft, nontender, no mass. +Bowel sounds EXT: Full ROM, bilateral pretibial 2+ edema, erythema present bilaterally with mild warmth right Neuro: Grossly normal neurologic exam, conversant, interactive. Psych: Speech fluent, thoughts congruent, affect normal Course Vital Signs Vital signs: Vital Signs Temperature 36 C L 07/11/19 08:14 Pulse 133 H 07/11/19 08:14 Respiratory Rate 16 07/11/19 08:14 Blood Pressure 155/106 H 07/11/19 08:14 Pulse Oximetry 96 07/11/19 08:14 Temperature 36 C L 07/11/19 08:14 Pulse 133 H 07/11/19 08:14 Respiratory Rate 16 07/11/19 08:14 Respiratory Effort Non-Labored 07/11/19 08:14 Blood Pressure 155/106 H 07/11/19 08:14 Pulse Oximetry 96 07/11/19 08:14 Pain Level 7 07/11/19 08:14 Lab/Test Results Lab/Test Results: 07/11/19 08:24 Blood Blood Culture - Pending 07/11/19 08:24 Blood Blood Culture - Pending
[2019-07-11] MEDS: Normal Saline 1,000 ML 500 ML IV (08:51)
[2019-07-11 08:53] LABS: Lactate 1.6 mmol/L (0.6-1.4)
[2019-07-11 09:02] LABS: Abs Immature Grans 0.02 k/cumm (0.0-0.09); Absolute Basophil Count 0.01 k/cumm (0.0-0.2); Absolute Eosinophil Count 0.09 k/cumm (0.0-0.7); Absolute Lymphocyte Count 0.69 k/cumm (1.2-3.4); Absolute Monocyte Count 0.43 k/cumm (0.11-0.7); Absolute Neutrophil Count 4.05 k/cumm (1.2-6.7); Basophils % 0.2; Eosinophils % 1.7; HGB 13.4 g/dL (12.0-15.5); Immature Grans % 0.4 %; Mean Corp. HGB Concentration 31.9 g/dL (32.0-36.0); Mean Corpuscular Hemoglobin 30.6 pg (27.0-33.0); Mean Corpuscular Volume 95.9 fL (80-95); Mean Platelet Volume 12.6 fL (8.0-11.0); Monocytes % 8.1; Neutrophils % 76.6; Platelet Count 135 x1000/uL (130-400); RBC 4.38 m/cumm (4.00-5.20); White Blood Cell Count 5.29 k/cumm (4.4-10.8)
[2019-07-11] MEDS: Metoprolol 5 MG/5 ML VIAL IVP (09:11)
[2019-07-11 09:13] LABS: ALT 32 U/L (14-59); AST 25 U/L (15-37); Albumin 3.4 g/dL (3.4-5.0); Alkaline Phosphatase 101 U/L (46-116); Anion Gap 9.2 mmol/L (3-11); BUN 16 mg/dL (7-18); Bilirubin, Total 1.1 mg/dL (0.2-1.0); CO2 27.8 mmol/L (21.0-32.0); CREATININE 0.84 mg/dL (0.55-1.02); Calcium 9.2 mg/dL (8.5-10.1); Chloride 105 mmol/L (98-107); Glucose 352 mg/dL (74-106); NT-proBNP 1197 pg/mL (<300); Potassium 3.8 mmol/L (3.5-5.1); Sodium 142 mmol/L (136-145); Total Protein 6.8 g/dL (6.4-8.2); Troponin I < 0.05 ng/Ml (<0.06)
[2019-07-11] MEDS: Furosemide 20 MG/2 ML VIAL 10 MG IVP (09:34)
[2019-07-11] MEDS: cefTRIAXone 1 GM/50 ML BAG IVPB (09:36)
== END 2019-07-11 11:55 | disposition skilled nursing facility (03) ==
PROVIDERS: Emergency Provider Emergency Medicine; PCP Family Medicine
DX: L03.115 Cellulitis of right lower limb (principal); L03.116 Cellulitis of left lower limb; E87.2 Acidosis; E11.9 Type 2 diabetes mellitus without complications; Z79.84 Long term (current) use of oral hypoglycemic drugs; I48.91 Unspecified atrial fibrillation; Z79.01 Long term (current) use of anticoagulants
CPT/HCPCS: 36415; 80053; 87040; 93005; 96361; 96365; 96375; 99284; 83605; 83880; 84484; 85025; 93010; J0696; J1941

== ENCOUNTER 2019-07-20 10:44 | Outpatient (REF) | payer MEDICARE, MEDICAID, SELFPAY ==
[2019-07-20 11:24] LABS: Anion Gap 11.3 mmol/L (3-11); BUN 27 mg/dL (7-18); CO2 26.7 mmol/L (21.0-32.0); CREATININE 0.83 mg/dL (0.55-1.02); Calcium 9.8 mg/dL (8.5-10.1); Chloride 101 mmol/L (98-107); Glucose 346 mg/dL (74-106); Magnesium 1.9 mg/dL (1.8-2.4); Sodium 139 mmol/L (136-145); TSH (W/Ref FT4) 2.84 uIU/mL (0.36-3.74)
== END 2019-07-20 11:04 ==
LOC: LBN 10:44
PROVIDERS: PCP Family Medicine; Visit Provider Family Medicine
DX: I10 Essential (primary) hypertension (principal); E03.9 Hypothyroidism, unspecified; R53.83 Other fatigue
CPT/HCPCS: 80048; 83735; 84443

== ENCOUNTER 2019-07-27 01:22 | Outpatient (CLI) | payer MEDICARE, MEDICAID, SELFPAY ==
--- NOTE | 2019-07-27 10:18 | DI.RAD_ITS ---
EXAM: XR CHEST 2V PA LATERAL CLINICAL HISTORY: ? MILD CHF, H/O A FIB, BILAT LOWER EXT EDEMA,EF 60-65% TECHNIQUE: 2D digital imaging was performed. COMPARISON: No exams were available for comparison FINDINGS: MEDIASTINUM: Normal. HEART: Normal. PULMONARY VASCULATURE: Prominence of the right hilum. LUNGS: Right perihilar interstitial infiltrate. PLEURAL SPACE: Small right pleural effusion. BONE:Degenerative changes in the spine. Compression deformity at T9 which appears old. OTHER FINDINGS:Normal. IMPRESSION: 1. Prominence of the right hilum. This may represent prominent pulmonary vasculature or hilar or vinh tral pulmonary mass. CT scan of the chest should be considered for further evaluation. 2. Right perihilar interstitial infiltrate and small right pleural effusion which may represent pneum onia or atelectasis. Interstitial edema cannot be excluded. DATA REPOSITORY: RADIATION DOSE DELIVERED:
== END 2019-07-27 01:42 ==
PROVIDERS: PCP Family Medicine; Visit Provider Family Medicine
DX: I50.9 Heart failure, unspecified (principal); I48.91 Unspecified atrial fibrillation; J90 Pleural effusion, not elsewhere classified; R91.8 Other nonspecific abnormal finding of lung field
CPT/HCPCS: 71046

== ENCOUNTER 2019-07-29 10:55 | Outpatient (REF) | payer MEDICARE, MEDICAID, SELFPAY ==
[2019-07-29 11:25] LABS: Abs Immature Grans 0.02 k/cumm (0.0-0.09); Absolute Basophil Count 0.02 k/cumm (0.0-0.2); Absolute Eosinophil Count 0.11 k/cumm (0.0-0.7); Absolute Lymphocyte Count 0.77 k/cumm (1.2-3.4); Absolute Monocyte Count 0.53 k/cumm (0.11-0.7); Absolute Neutrophil Count 3.88 k/cumm (1.2-6.7); Basophils % 0.4; Eosinophils % 2.1; HCT 42.7 % (36.0-46.0); Immature Grans % 0.4 %; Lymphocytes % 14.4; Mean Corp. HGB Concentration 30.4 g/dL (32.0-36.0); Mean Corpuscular Hemoglobin 30.5 pg (27.0-33.0); Mean Corpuscular Volume 100.2 fL (80-95); Mean Platelet Volume 13.4 fL (8.0-11.0); Monocytes % 9.9; Neutrophils % 72.8; Platelet Count 135 x1000/uL (130-400); RBC 4.26 m/cumm (4.00-5.20); RBC Distribution Width 14.8 % (11.7-14.6); White Blood Cell Count 5.33 k/cumm (4.4-10.8)
[2019-07-29 11:33] LABS: BUN 17 mg/dL (7-18); Chloride 104 mmol/L (98-107); Glucose 226 mg/dL (74-106); Potassium 3.7 mmol/L (3.5-5.1); Sodium 143 mmol/L (136-145)
== END 2019-07-29 11:15 ==
LOC: LBN 10:55
PROVIDERS: PCP Family Medicine; Visit Provider Family Medicine
DX: E11.9 Type 2 diabetes mellitus without complications (principal); R60.0 Localized edema; L03.90 Cellulitis, unspecified; R03.0 Elevated blood-pressure reading, without diagnosis of hypertension; I48.91 Unspecified atrial fibrillation
CPT/HCPCS: 80048; 85025

== ENCOUNTER 2019-07-30 10:58 | Outpatient (REF) | payer MEDICARE, MEDICAID, SELFPAY ==
[2019-07-30 11:43] LABS: Bilirubin Negative (Negative); Blood Trace-intact (Negative); Clarity Clear (Clear); Glucose Negative (Negative); Ketones Negative (Negative); Leukocyte Esterase Small (Negative); Nitrite Negative (Negative); Specific Gravity <= 1.005 (1.005-1.025); Urobilinogen 0.2 EU/dL (Up TO 0.2); pH 5.5 (5-8)
[2019-07-30 11:51] LABS: Bacteria Few HPF (Negative); Casts Negative LPF (Negative); Crystals Negative HPF (Negative); Epithelial Cells Moderate HPF (Negative); Mucus Negative (Negative); RBC 0-2 HPF (0-2); WBC 20-50 HPF (0-5)
[2019-07-30 11:52] LABS: C & S Indicated? No/Sq. Contamination; Other Cells Few Transitional (Negative)
== END 2019-07-30 11:18 ==
LOC: LBN 10:58
PROVIDERS: PCP Family Medicine; Visit Provider Family Medicine
DX: R35.0 Frequency of micturition (principal)
CPT/HCPCS: 81003; 81015

== ENCOUNTER 2019-08-03 12:18 | Outpatient (REF) | payer MEDICARE, MEDICAID, SELFPAY ==
[2019-08-03 14:27] LABS: Anion Gap 4.8 mmol/L (3-11); BUN 19 mg/dL (7-18); CO2 34.2 mmol/L (21.0-32.0); CREATININE 0.79 mg/dL (0.55-1.02); Calcium 9.4 mg/dL (8.5-10.1); Chloride 102 mmol/L (98-107); Glucose 221 mg/dL (74-106); Potassium 3.9 mmol/L (3.5-5.1); Sodium 141 mmol/L (136-145)
== END 2019-08-03 12:38 ==
LOC: LBN 12:18
PROVIDERS: PCP Family Medicine; Visit Provider Family Medicine
DX: I10 Essential (primary) hypertension (principal)
CPT/HCPCS: 80048

== ENCOUNTER 2019-08-25 08:53 | Outpatient (REF) | payer MEDICARE, MEDICAID, SELFPAY ==
[2019-08-25 10:23] LABS: Anion Gap 6.9 mmol/L (3-11); BUN 15 mg/dL (7-18); CO2 31.1 mmol/L (21.0-32.0); CREATININE 0.76 mg/dL (0.55-1.02); Calcium 9.5 mg/dL (8.5-10.1); Chloride 104 mmol/L (98-107); Glucose 176 mg/dL (74-106); Potassium 3.9 mmol/L (3.5-5.1); Sodium 142 mmol/L (136-145)
== END 2019-08-25 09:13 ==
LOC: LBN 08:53
PROVIDERS: PCP Family Medicine; Visit Provider Family Medicine
DX: I10 Essential (primary) hypertension (principal); E11.9 Type 2 diabetes mellitus without complications
CPT/HCPCS: 80048

== ENCOUNTER 2019-09-15 10:54 | Outpatient (REF) | payer MEDICARE, MEDICAID, SELFPAY ==
[2019-09-15 12:49] LABS: Hemoglobin A1C 9.9 % (3.8-5.6)
[2019-09-15 12:56] LABS: Anion Gap 10.2 mmol/L (3-11); BUN 20 mg/dL (7-18); CO2 28.8 mmol/L (21.0-32.0); CREATININE 0.78 mg/dL (0.55-1.02); Calcium 9.4 mg/dL (8.5-10.1); Chloride 100 mmol/L (98-107); Glucose 217 mg/dL (74-106); Potassium 3.7 mmol/L (3.5-5.1); Sodium 139 mmol/L (136-145)
[2019-09-15 12:59] LABS: Folate > 20.0 ng/mL (8.6-20.0)
[2019-09-15 13:23] LABS: NT-proBNP 1318 pg/mL (<300)
[2019-09-17 04:41] LABS: Vitamin D 25 Total 19.2 ng/ml (30-100)
== END 2019-09-15 11:14 ==
LOC: LBN 10:54
PROVIDERS: PCP Family Medicine; Visit Provider Family Medicine
DX: E11.40 Type 2 diabetes mellitus with diabetic neuropathy, unspecified (principal); I50.9 Heart failure, unspecified; I10 Essential (primary) hypertension; M81.0 Age-related osteoporosis without current pathological fracture
CPT/HCPCS: 80048; 82306; 82746; 83036; 83880

== ENCOUNTER 2019-09-28 14:37 | Outpatient (REF) | payer MEDICARE, MEDICAID, SELFPAY ==
[2019-09-28 14:22] LABS: CREATININE 0.91 mg/dL (0.55-1.02)
== END 2019-09-28 14:57 ==
LOC: LBN 14:37
PROVIDERS: PCP Family Medicine; Visit Provider Family Medicine
DX: Z13.89 Encounter for screening for other disorder (principal); R69 Illness, unspecified
CPT/HCPCS: 82565

== ENCOUNTER 2019-09-30 01:57 | Outpatient (CLI) | payer MEDICARE, MEDICAID, SELFPAY ==
--- NOTE | 2019-09-30 | DI.CT_ITS ---
EXAM: CT CHEST W CLINICAL HISTORY: F/U ABNL CXR,PROMINENCE RT HILUM, ? MASS, F/U INFILTRATES, PLEURAL EFFUSION TECHNIQUE: COMPARISON: CR XR CHEST 2V PA LATERAL from 07/27/2019 FINDINGS: CT examination of the chest was performed with intravenous infusion of 70 cc of Omnipaque 350. The h eart is mildly enlarged. There is a right pleural effusion. No pleural based mass identified. Lung s are predominantly clear with mild mosaic attenuation. No hilar or mediastinal adenopathy seen. No supraclavicular or axillary adenopathy seen. Note is made of a prior right mastectomy. There is no evidence of pulmonary embolic disease. No thoracic aortic dissection or aneurysm. Images obtained through the upper abdomen show significant motion blurring but grossly unremarkable a ppearance of visualized portions of liver, spleen, pancreas, adrenals, and kidneys. IMPRESSION: Patient is status post right mastectomy. Right pleural effusion is noted which is a nonspecific finding but which could be associated with ple ural metastatic disease. No gross intra thoracic metastatic mass identified. No adenopathy seen.
[2019-09-30] MEDS: Omnipaque 350 MG/ML 100 ML BTL IJ (11:25)
[2019-09-30] MEDS: Normal Saline - Diluent 50 ML VIAL IV (11:25)
[2019-09-30] MEDS: Normal Saline Flush 10 ML SYR IVP (11:27)
== END 2019-09-30 02:17 ==
PROVIDERS: PCP Family Medicine; Visit Provider Family Medicine
DX: I51.7 Cardiomegaly (principal); J90 Pleural effusion, not elsewhere classified; Z90.11 Acquired absence of right breast and nipple
CPT/HCPCS: 71260; J3490

== ENCOUNTER 2019-12-23 15:43 | Outpatient (REF) | payer MEDICARE, MEDICAID, SELFPAY ==
[2019-12-23 16:48] LABS: Abs Immature Grans 0.02 10^3/uL (0.0-0.06); Absolute Basophil Count 0.02 10^3/uL (0.0-0.2); Absolute Lymphocyte Count 1.01 10^3/uL (1.2-3.4); Absolute Monocyte Count 0.43 10^3/uL (0.1-0.8); Absolute Neutrophil Count 3.92 10^3/uL (1.2-6.7); Basophils % 0.4; Eosinophils % 3.6; HCT 40.6 % (36.0-46.0); Immature Grans % 0.4; MCV 93.5 fL (80-95); MPV 13.5 fL (8.0-11.0); Monocytes % 7.7; Neutrophils % 69.9; Nucleated RBC 0 %; Platelet Count 157 10^3/uL (130-400); RBC 4.34 10^6/uL (3.93-5.22); RDW 13.2 % (11.7-14.6); RDW-SD 45.2 fL
[2019-12-23 17:00] LABS: Anion Gap 5.8 mmol/L (3-11); BUN 18 mg/dL (7-18); CO2 31.2 mmol/L (21.0-32.0); Calcium 9.8 mg/dL (8.5-10.1); Chloride 101 mmol/L (98-107); Estimated GFR 54.35 (mL/min/1.73m2); Glucose 232 mg/dL (74-106); Potassium 4.1 mmol/L (3.5-5.1); Sodium 138 mmol/L (136-145)
[2019-12-23 17:57] LABS: Hemoglobin A1C 7.7 % (3.8-5.6)
[2019-12-24 04:53] LABS: Vitamin D 25 Total 22.3 ng/ml (30-100)
== END 2019-12-23 16:03 ==
LOC: NCHCN 15:43
PROVIDERS: PCP Family Medicine; Visit Provider Family Medicine
DX: E11.9 Type 2 diabetes mellitus without complications (principal); I50.9 Heart failure, unspecified; I48.91 Unspecified atrial fibrillation; F03.90 Unspecified dementia, unspecified severity, without behavioral disturbance, psychotic disturbance, mood disturbance, and anxiety
CPT/HCPCS: 80048; 82306; 83036; 85025

== ENCOUNTER 2020-03-07 14:40 | Outpatient (REF) | payer MEDICARE, MEDICAID, SELFPAY ==
[2020-03-07 14:52] LABS: Abs Immature Grans 0.02 10^3/uL (0.0-0.06); Absolute Basophil Count 0.03 10^3/uL (0.0-0.2); Absolute Eosinophil Count 0.24 10^3/uL (0.0-0.7); Absolute Lymphocyte Count 0.94 10^3/uL (1.2-3.4); Absolute Monocyte Count 0.32 10^3/uL (0.1-0.8); Absolute Neutrophil Count 4.59 10^3/uL (1.2-6.7); Basophils % 0.5; Eosinophils % 3.9; HCT 41.8 % (36.0-46.0); HGB 13.3 g/dL (11.2-15.7); Immature Grans % 0.3; Lymphocytes % 15.3; MCH 29.8 pg (27.0-33.0); MCHC 31.8 % (32.0-36.0); MCV 93.7 fL (80-95); MPV 13.6 fL (8.0-11.0); Monocytes % 5.2; Neutrophils % 74.8; Nucleated RBC 0 %; RBC 4.46 10^6/uL (3.93-5.22); RDW 13.2 % (11.7-14.6); RDW-SD 45.4 fL
[2020-03-07 14:59] LABS: Anion Gap 6.4 mmol/L (3-11); BUN 20 mg/dL (7-18); CO2 30.6 mmol/L (21.0-32.0); CREATININE 1.03 mg/dL (0.55-1.02); Chloride 102 mmol/L (98-107); Estimated GFR 52.53 (mL/min/1.73m2); Glucose 242 mg/dL (74-106); Sodium 139 mmol/L (136-145)
[2020-03-07 15:13] LABS: Diff Comment PLT Morph Reviewed; RBC Morphology Normal
[2020-03-07 15:16] LABS: Platelet Count 122 10^3/uL (130-400); WBC 6.14 10^3/uL (4.4-10.8)
[2020-03-07 16:31] LABS: Hemoglobin A1C 7.5 % (<5.7)
== END 2020-03-07 15:00 ==
LOC: NCHCN 14:40
PROVIDERS: PCP Family Medicine; Visit Provider Family Medicine
DX: E11.9 Type 2 diabetes mellitus without complications (principal); I50.9 Heart failure, unspecified; I48.91 Unspecified atrial fibrillation; F03.90 Unspecified dementia, unspecified severity, without behavioral disturbance, psychotic disturbance, mood disturbance, and anxiety; R53.82 Chronic fatigue, unspecified; E66.9 Obesity, unspecified
CPT/HCPCS: 80048; 83036; 85025

== ENCOUNTER 2020-03-16 13:15 | Outpatient (REF) | payer MEDICARE, MEDICAID, SELFPAY ==
[2020-03-16 14:56] LABS: ESR 35 mm/hr (0-30)
== END 2020-03-16 13:35 ==
LOC: NCHCN 13:15
PROVIDERS: PCP Family Medicine; Visit Provider Family Medicine
DX: E66.9 Obesity, unspecified (principal); K52.89 Other specified noninfective gastroenteritis and colitis; I10 Essential (primary) hypertension; I50.32 Chronic diastolic (congestive) heart failure
CPT/HCPCS: 80061; 85652; 86140

== ENCOUNTER 2020-03-23 13:24 | Outpatient (REF) | payer MEDICARE, MEDICAID, SELFPAY ==
[2020-03-23 15:50] LABS: Calculated LDL 95 mg/dL (<100); Cholesterol 155 mg/dL (<200); HDL Cholesterol 41 mg/dL (40-60); Triglyceride 99 mg/dL (<150)
[2020-03-23 16:04] LABS: C-Reactive Protein 0.59 mg/dL (0.0-0.3)
== END 2020-03-23 13:44 ==
LOC: NCHCN 13:24
PROVIDERS: PCP Family Medicine; Visit Provider Family Medicine
DX: I25.10 Atherosclerotic heart disease of native coronary artery without angina pectoris (principal); E66.9 Obesity, unspecified; G30.0 Alzheimer's disease with early onset; I50.89 Other heart failure
CPT/HCPCS: 80061; 86140

== ENCOUNTER 2020-05-16 12:46 | Outpatient (REF) | payer MEDICARE, MEDICAID, SELFPAY ==
[2020-05-16 14:38] LABS: Vitamin D 25 Total 22.5 ng/ml (30-100)
== END 2020-05-16 13:06 ==
LOC: NCHCN 12:46
PROVIDERS: PCP Family Medicine; Visit Provider Family Medicine
DX: E55.9 Vitamin D deficiency, unspecified (principal)
CPT/HCPCS: 82306

== ENCOUNTER 2020-05-27 04:30 | Outpatient (CLI) | payer MEDICARE, MEDICAID, SELFPAY ==
--- NOTE | 2020-05-27 | DI.MRI_ITS ---
CLINICAL HISTORY: RETINAL HEMORRHAGE LT EYE,H35.62,? STENOSIS CAUSING OSCULAR ISCHEMIC SYN-. TECHNIQUE: Multiplanar multisequence MRA of the brain was performed. COMPARISON: None. FINDINGS: Carotid Arteries: No aneurysm, occlusion or significant stenosis. Anterior Cerebral Arteries: Right: No aneurysm, occlusion or significant stenosis. Left: No aneurysm, occlusion or significant stenosis. Middle Cerebral Arteries: Right: No aneurysm, occlusion or significant stenosis. Left: No aneurysm, occlusion or significant stenosis. Posterior Cerebral Arteries: Right: No aneurysm, occlusion or significant stenosis. Left: No aneurysm, occlusion or significant stenosis. Vertebral Arteries: Right: No aneurysm, occlusion or significant stenosis. Left: No aneurysm, occlusion or significant stenosis. Basilar Artery: No aneurysm, occlusion or significant stenosis. IMPRESSION: No evidence of aneurysm, occlusion or significant stenosis. DATA REPOSITORY:
--- NOTE | 2020-05-27 | DI.MRI_ITS ---
EXAM: MR BRAIN WO/W CLINICAL HISTORY: RETINAL HEMORRHAGE LT EYE,H35.62,? CAROTID/OPHTHLAMAIC ARTERY STENOSIS TECHNIQUE: Multiplanar multisequence MRI of the brain was performed. CONTRAST MATERIAL: IV Contrast: 20 ML of Dotarem contrast administered. COMPARISON: MR MRI - BRAIN WO CONTRAST from 10/26/2015 FINDINGS: The examination is limited due to patient motion artifact. VENTRICLES AND EXTRA AXIAL SPACES: There is prominence of the ventricles and sulci consistent with ce rebral atrophy. The degree of ventricular dilatation is appears more significant than the degree of sulcal prominence. NPH should be considered. HEMORRHAGE: None. CEREBRAL PARENCHYMA: No focus of restricted diffusion to suggest acute infarct. No space-occupying le erma identified. There are areas of hyperintense signal in the white matter on the T2 and FLAIR image s most consistent with chronic microvascular ischemic changes. MIDLINE SHIFT: None. BRAINSTEM/CEREBELLUM: Normal. CALVARIUM: Normal. ENHANCEMENT: No suspicious enhancement identified. VISUALIZED PARANASAL SINUSES/MASTOIDS: Clear. TULALIP OF [place]: Normal flow void. PITUITARY GLAND: Unremarkable. OTHER FINDINGS: The orbits and retro-orbital soft tissues are unremarkable. IMPRESSION: 1. No intracranial mass, enhancing lesion, acute infarct or hemorrhage. 2. Cerebral atrophy and small vessel ischemic disease. 3. Findings suspicious for normal pressure hydrocephalus. Please correlate clinically. DATA REPOSITORY:
--- NOTE | 2020-05-27 | DI.MRI_ITS ---
EXAM: MR ANGIO NECK WO CLINICAL HISTORY: RETINAL HEMORRHAGE LT EYE,H35.62,? STENOSIS CAUSING OCULAR ISCHEMIC SYNDROM. TECHNIQUE: Multiplanar multisequence MRA of the Neck was performed. COMPARISON: No exams were available for comparison FINDINGS: Common Carotid: Right: No dissection, occlusion or significant stenosis. Left: No dissection, occlusion or significant stenosis. External Carotid: Right: No evidence of occlusion or significant stenosis. Left: No evidence of occlusion or significant stenosis. Internal Carotid: Right: No dissection, occlusion or significant stenosis. Left: No dissection, occlusion or significant stenosis. Vertebral Artery: Right: No dissection, occlusion or significant stenosis. Left: No dissection, occlusion or significant stenosis. The visualized paraspinal soft tissues are unremarkable. IMPRESSION: No evidence of dissection, occlusion or significant stenosis. DATA REPOSITORY:
[2020-05-27] MEDS: Normal Saline Flush 10 ML SYR IVP (12:00)
[2020-05-27] MEDS: Gadoterate meglumine 20 ML VIAL IVP (12:01)
== END 2020-05-27 04:50 ==
PROVIDERS: PCP Family Medicine; Visit Provider Chiropractor
DX: H35.62 Retinal hemorrhage, left eye (principal)
CPT/HCPCS: 70544; 70547; 70553

== ENCOUNTER 2020-07-19 19:05 | Outpatient (REF) | payer MEDICARE, MEDICAID, SELFPAY ==
[2020-07-19 19:21] LABS: Abs Immature Grans 0.02 10^3/uL (0.0-0.06); Absolute Basophil Count 0.03 10^3/uL (0.0-0.2); Absolute Eosinophil Count 0.21 10^3/uL (0.0-0.7); Absolute Lymphocyte Count 0.72 10^3/uL (1.2-3.4); Absolute Monocyte Count 0.35 10^3/uL (0.1-0.8); Absolute Neutrophil Count 4.23 10^3/uL (1.2-6.7); Basophils % 0.5; Eosinophils % 3.8; HCT 39.4 % (36.0-46.0); HGB 12.3 g/dL (11.2-15.7); Immature Grans % 0.4; Lymphocytes % 12.9; MCH 29.5 pg (27.0-33.0); MCHC 31.2 % (32.0-36.0); MCV 94.5 fL (80-95); MPV 12.9 fL (8.0-11.0); Monocytes % 6.3; Neutrophils % 76.1; Nucleated RBC 0 %; Platelet Count 135 10^3/uL (130-400); RBC 4.17 10^6/uL (3.93-5.22); RDW 14.6 % (11.7-14.6); RDW-SD 50.7 fL; WBC 5.56 10^3/uL (4.4-10.8)
[2020-07-19 19:39] LABS: Anion Gap 9.8 mmol/L (3-11); BUN 17 mg/dL (7-18); CO2 29.2 mmol/L (21.0-32.0); CREATININE 0.9 mg/dL (0.55-1.02); Calcium 9.2 mg/dL (8.5-10.1); Chloride 99 mmol/L (98-107); Glucose 237 mg/dL (74-106); Potassium 4.2 mmol/L (3.5-5.1); Sodium 138 mmol/L (136-145)
[2020-07-19 19:58] LABS: Hemoglobin A1C 8.3 % (<5.7)
== END 2020-07-19 19:06 | disposition home or self-care (01) ==
LOC: LBN 19:05
PROVIDERS: PCP Family Medicine; Visit Provider Family Medicine
DX: E11.65 Type 2 diabetes mellitus with hyperglycemia (principal); I50.89 Other heart failure; I48.11 Longstanding persistent atrial fibrillation; E66.01 Morbid (severe) obesity due to excess calories; I25.10 Atherosclerotic heart disease of native coronary artery without angina pectoris
CPT/HCPCS: 80048; 83036; 85025

== ENCOUNTER 2020-08-05 14:41 | Outpatient (REF) | payer MEDICARE, MEDICAID, SELFPAY ==
[2020-08-05 16:16] LABS: Abs Immature Grans 0.03 10^3/uL (0.0-0.06); Absolute Basophil Count 0.04 10^3/uL (0.0-0.2); Absolute Eosinophil Count 0.25 10^3/uL (0.0-0.7); Absolute Lymphocyte Count 0.75 10^3/uL (1.2-3.4); Absolute Neutrophil Count 5.49 10^3/uL (1.2-6.7); Basophils % 0.6; Eosinophils % 3.6; HCT 40.8 % (36.0-46.0); HGB 12.6 g/dL (11.2-15.7); Immature Grans % 0.4; Lymphocytes % 10.8; MCH 29.2 pg (27.0-33.0); MCHC 30.9 % (32.0-36.0); MCV 94.7 fL (80-95); MPV 13.6 fL (8.0-11.0); Monocytes % 5.7; Neutrophils % 78.9; Nucleated RBC 0 %; Platelet Count 143 10^3/uL (130-400); RBC 4.31 10^6/uL (3.93-5.22); RDW 14.5 % (11.7-14.6); RDW-SD 50.4 fL; WBC 6.96 10^3/uL (4.4-10.8)
[2020-08-05 16:49] LABS: Anion Gap 6.4 mmol/L (3-11); BUN 18 mg/dL (7-18); CO2 31.6 mmol/L (21.0-32.0); CREATININE 0.9 mg/dL (0.55-1.02); Calcium 9.3 mg/dL (8.5-10.1); Chloride 101 mmol/L (98-107); Glucose 226 mg/dL (74-106); Potassium 3.9 mmol/L (3.5-5.1); Sodium 139 mmol/L (136-145)
== END 2020-08-05 14:42 | disposition home or self-care (01) ==
LOC: LBN 14:41
PROVIDERS: PCP Family Medicine; Visit Provider Family Medicine
DX: I10 Essential (primary) hypertension (principal); E11.65 Type 2 diabetes mellitus with hyperglycemia; I50.32 Chronic diastolic (congestive) heart failure
CPT/HCPCS: 80048; 85025

== ENCOUNTER 2020-08-23 01:20 | Outpatient (CLI) | payer MEDICARE, MEDICAID, SELFPAY ==
--- NOTE | 2020-08-23 | DI.MAMMO_ITS ---
EXAM: MG MAMMO SCREENING 60 MIN DUR CLINICAL HISTORY: SCREENING TECHNIQUE: Mammograms were interpreted according to the usual protocol including computer analysis w Spoke CAD system, tomosynthesis and C-view imaging. COMPARISON: FINDINGS: On today's examination, left breast mammogram was obtained. Right breast mammogram was attempted but we were unable to obtain a right breast mammogram due to the patient's body habitus. No dominant mass or clumped microcalcification is identified in the left breast. No significant inte rval change in appearance comparison with previous examination of April 2012. IMPRESSION: Right breast not evaluated due to the patient's body habitus after multiple attempts. No specific evidence of malignancy involving the left breast. BI-RADS Category 1 - Negative Breast Density - Category B - Scattered areas of fibroglandular density
== END 2020-08-23 01:40 ==
PROVIDERS: PCP Family Medicine; Visit Provider Nurse Practitioner Gerontology
DX: Z12.31 Encounter for screening mammogram for malignant neoplasm of breast (principal); R93.9 Diagnostic imaging inconclusive due to excess body fat of patient
CPT/HCPCS: 77063; 77067

== ENCOUNTER 2020-09-01 13:00 | Outpatient (CLI) | payer MEDICARE, MEDICAID, SELFPAY | END 2020-09-01 13:01 | PROVIDERS: PCP Family Medicine; Visit Provider Physician Assistant | DX: M17.11 Unilateral primary osteoarthritis, right knee (principal); M17.12 Unilateral primary osteoarthritis, left knee | CPT/HCPCS: 20610; J1030 ==

== ENCOUNTER 2020-12-13 17:10 | Outpatient (REF) | payer MEDICARE, MEDICAID, SELFPAY ==
[2020-12-13 13:43] LABS: Abs Immature Grans 0.03 10^3/uL (0.0-0.06); Absolute Basophil Count 0.04 10^3/uL (0.0-0.2); Absolute Eosinophil Count 0.47 10^3/uL (0.0-0.7); Absolute Lymphocyte Count 0.89 10^3/uL (1.2-3.4); Absolute Monocyte Count 0.45 10^3/uL (0.1-0.8); Absolute Neutrophil Count 5.08 10^3/uL (1.2-6.7); Basophils % 0.6; Eosinophils % 6.8; HCT 42.9 % (36.0-46.0); HGB 13.3 g/dL (11.2-15.7); Immature Grans % 0.4; Lymphocytes % 12.8; MCH 29.3 pg (27.0-33.0); MCV 94.5 fL (80-95); MPV 13.5 fL (8.0-11.0); Monocytes % 6.5; Neutrophils % 72.9; Nucleated RBC 0 %; Platelet Count 142 10^3/uL (130-400); RBC 4.54 10^6/uL (3.93-5.22); RDW 14.2 % (11.7-14.6); RDW-SD 48.9 fL; WBC 6.96 10^3/uL (4.4-10.8)
[2020-12-13 14:21] LABS: Anion Gap 8.7 mmol/L (3-11); BUN 21 mg/dL (7-18); CO2 30.3 mmol/L (21.0-32.0); CREATININE 0.8 mg/dL (0.55-1.02); Calcium 9.1 mg/dL (8.5-10.1); Calculated LDL 79 mg/dL (<100); Chloride 104 mmol/L (98-107); Cholesterol 139 mg/dL (<200); Glucose 170 mg/dL (74-106); HDL Cholesterol 39 mg/dL (40-60); Potassium 3.8 mmol/L (3.5-5.1); Sodium 143 mmol/L (136-145); TSH (W/Ref FT4) 2.73 uIU/mL (0.36-3.74); Triglyceride 109 mg/dL (<150)
== END 2020-12-13 17:11 | disposition home or self-care (01) ==
LOC: LBN 17:10
PROVIDERS: PCP Family Medicine; Visit Provider Nurse Practitioner Gerontology
DX: I50.89 Other heart failure (principal); E11.65 Type 2 diabetes mellitus with hyperglycemia; E03.8 Other specified hypothyroidism; E83.42 Hypomagnesemia
CPT/HCPCS: 80048; 80061; 83036; 84443; 85025

== ENCOUNTER 2021-01-26 19:18 | Outpatient (REF) | payer MEDICARE, MEDICAID, SELFPAY ==
[2021-01-26 20:55] LABS: Abs Immature Grans 0.03 10^3/uL (0.0-0.06); Absolute Basophil Count 0.03 10^3/uL (0.0-0.2); Absolute Lymphocyte Count 0.81 10^3/uL (1.2-3.4); Absolute Neutrophil Count 5.11 10^3/uL (1.2-6.7); Basophils % 0.5; HCT 39.7 % (36.0-46.0); HGB 12.4 g/dL (11.2-15.7); Immature Grans % 0.5; Lymphocytes % 12.3; MCH 29.3 pg (27.0-33.0); MCHC 31.2 % (32.0-36.0); MCV 93.9 fL (80-95); MPV 13.7 fL (8.0-11.0); Monocytes % 6.1; Neutrophils % 77.6; Nucleated RBC 0 %; Platelet Count 135 10^3/uL (130-400); RBC 4.23 10^6/uL (3.93-5.22); RDW 14.2 % (11.7-14.6); RDW-SD 48.8 fL; WBC 6.58 10^3/uL (4.4-10.8)
[2021-01-26 21:07] LABS: Hemoglobin A1C 7.4 % (<5.7)
[2021-01-26 21:17] LABS: BUN 16 mg/dL (7-18); CREATININE 1.1 mg/dL (0.55-1.02); Glucose 132 mg/dL (74-106)
[2021-01-26 21:18] LABS: Anion Gap 5.7 mmol/L (3-11); CO2 31.3 mmol/L (21.0-32.0); Calculated LDL 56 mg/dL (<100); Chloride 103 mmol/L (98-107); Cholesterol 126 mg/dL (<200); Estimated GFR 48.55 (mL/min/1.73m2); HDL Cholesterol 34 mg/dL (40-60); Potassium 4.2 mmol/L (3.5-5.1); Sodium 140 mmol/L (136-145); TSH (W/Ref FT4) 2.33 uIU/mL (0.36-3.74); Triglyceride 180 mg/dL (<150)
== END 2021-01-26 19:19 | disposition home or self-care (01) ==
LOC: LBN 19:18
PROVIDERS: PCP Family Medicine; Visit Provider Nurse Practitioner Gerontology
DX: E11.40 Type 2 diabetes mellitus with diabetic neuropathy, unspecified (principal); E03.9 Hypothyroidism, unspecified
CPT/HCPCS: 80048; 80061; 83036; 84443; 85025

== ENCOUNTER 2021-05-03 03:09 | Outpatient (REF) | payer MEDICARE, MEDICAID, SELFPAY ==
[2021-05-02 19:07] LABS: Abs Immature Grans 0.02 10^3/uL (0.0-0.06); Absolute Basophil Count 0.04 10^3/uL (0.0-0.2); Absolute Eosinophil Count 0.24 10^3/uL (0.0-0.7); Absolute Lymphocyte Count 0.84 10^3/uL (1.2-3.4); Absolute Monocyte Count 0.46 10^3/uL (0.1-0.8); Absolute Neutrophil Count 4.64 10^3/uL (1.2-6.7); Basophils % 0.6; Eosinophils % 3.8; HCT 41.2 % (36.0-46.0); HGB 12.8 g/dL (11.2-15.7); Immature Grans % 0.3; Lymphocytes % 13.5; MCH 29.9 pg (27.0-33.0); MCHC 31.1 % (32.0-36.0); MCV 96.3 fL (80-95); Monocytes % 7.4; Neutrophils % 74.4; Nucleated RBC 0 %; Platelet Count 145 10^3/uL (130-400); RBC 4.28 10^6/uL (3.93-5.22); RDW 14.5 % (11.7-14.6); RDW-SD 51.1 fL; WBC 6.24 10^3/uL (4.4-10.8)
[2021-05-02 19:32] LABS: Hemoglobin A1C 7.7 % (<5.7)
== END 2021-05-03 03:10 | disposition home or self-care (01) ==
LOC: LBN 03:09
PROVIDERS: PCP Family Medicine; Visit Provider Internal Medicine
DX: E03.8 Other specified hypothyroidism (principal); R53.82 Chronic fatigue, unspecified; I51.9 Heart disease, unspecified; G30.0 Alzheimer's disease with early onset
CPT/HCPCS: 80048; 83036; 84443; 85025

== ENCOUNTER 2021-05-04 19:08 | Outpatient (REF) | payer MEDICARE, MEDICAID, SELFPAY ==
[2021-05-04 18:39] LABS: Anion Gap 5.9 mmol/L (3-11); BUN 21 mg/dL (7-18); CO2 31.1 mmol/L (21.0-32.0); CREATININE 0.9 mg/dL (0.55-1.02); Calcium 9.7 mg/dL (8.5-10.1); Chloride 101 mmol/L (98-107); Glucose 214 mg/dL (74-106); Potassium 3.9 mmol/L (3.5-5.1); Sodium 138 mmol/L (136-145); TSH (W/Ref FT4) 3.84 uIU/mL (0.36-3.74)
[2021-05-04 18:56] LABS: FREE T4 1.18 ng/dL (0.76-1.46)
== END 2021-05-04 19:09 | disposition home or self-care (01) ==
LOC: LBN 19:08
PROVIDERS: PCP Family Medicine; Visit Provider Internal Medicine
DX: G31.09 Other frontotemporal neurocognitive disorder (principal); E78.5 Hyperlipidemia, unspecified; N18.9 Chronic kidney disease, unspecified
CPT/HCPCS: 80048; 84439; 84443

== ENCOUNTER 2021-07-11 15:27 | Outpatient (REF) | payer MEDICARE, MEDICAID, SELFPAY ==
[2021-07-11 16:37] LABS: Abs Immature Grans 0.04 10^3/uL (0.0-0.06); Absolute Basophil Count 0.04 10^3/uL (0.0-0.2); Absolute Eosinophil Count 0.19 10^3/uL (0.0-0.7); Absolute Lymphocyte Count 0.71 10^3/uL (1.2-3.4); Absolute Monocyte Count 0.47 10^3/uL (0.1-0.8); Absolute Neutrophil Count 5.16 10^3/uL (1.2-6.7); Basophils % 0.6; Eosinophils % 2.9; HCT 40.7 % (36.0-46.0); HGB 12.8 g/dL (11.2-15.7); Immature Grans % 0.6; Lymphocytes % 10.7; MCH 30.4 pg (27.0-33.0); MCHC 31.4 % (32.0-36.0); MCV 96.7 fL (80-95); MPV 13.1 fL (8.0-11.0); Monocytes % 7.1; Neutrophils % 78.1; Nucleated RBC 0 %; Platelet Count 153 10^3/uL (130-400); RBC 4.21 10^6/uL (3.93-5.22); RDW 14.1 % (11.7-14.6); RDW-SD 49.7 fL; WBC 6.61 10^3/uL (4.4-10.8)
[2021-07-11 16:48] LABS: Iron 62 ug/dL (50-170)
[2021-07-11 16:54] LABS: Hemoglobin A1C 8.3 % (<5.7)
[2021-07-11 17:05] LABS: ALT 37 U/L (14-59); AST 50 U/L (15-37); Albumin 3.2 g/dL (3.4-5.0); Alkaline Phosphatase 101 U/L (46-116); Anion Gap 8.9 mmol/L (3-11); BUN 20 mg/dL (7-18); Bilirubin, Total 0.5 mg/dL (0.2-1.0); CO2 29.1 mmol/L (21.0-32.0); CREATININE 0.8 mg/dL (0.55-1.02); Calcium 9.4 mg/dL (8.5-10.1); Chloride 102 mmol/L (98-107); Folate > 20.0 ng/mL (8.6-20.0); Glucose 277 mg/dL (74-106); Magnesium 2.1 mg/dL (1.8-2.4); Potassium 4.5 mmol/L (3.5-5.1); Sodium 140 mmol/L (136-145); TSH (W/Ref FT4) 2.29 uIU/mL (0.36-3.74); Total Protein 6.4 g/dL (6.4-8.2)
[2021-07-11 17:44] LABS: Vitamin B12 713 pg/mL (193-986)
[2021-07-13 01:12] LABS: Vitamin D 25 Total 19.2 ng/mL (30-100)
== END 2021-07-11 15:28 | disposition home or self-care (01) ==
LOC: LBN 15:27
PROVIDERS: PCP Family Medicine; Visit Provider Nurse Practitioner Gerontology
DX: E11.319 Type 2 diabetes mellitus with unspecified diabetic retinopathy without macular edema (principal); E03.8 Other specified hypothyroidism; R53.82 Chronic fatigue, unspecified; I50.32 Chronic diastolic (congestive) heart failure
CPT/HCPCS: 80053; 82306; 82607; 82746; 83036; 83540; 83735; 84443; 85025

== ENCOUNTER 2021-07-12 17:08 | Outpatient (REF) | payer MEDICARE, MEDICAID, SELFPAY ==
[2021-07-12 17:39] LABS: Iron 53 ug/dL (50-170); Total Iron Binding Capacity 277 ug/dL (250-450); Transferrin Sat 19 % (15-50)
[2021-07-13 18:23] LABS: Ferritin 72 ng/mL (10-291)
== END 2021-07-12 17:09 | disposition home or self-care (01) ==
LOC: LBN 17:08
PROVIDERS: PCP Family Medicine; Visit Provider Nurse Practitioner Gerontology
DX: E11.319 Type 2 diabetes mellitus with unspecified diabetic retinopathy without macular edema (principal); E03.8 Other specified hypothyroidism; I50.32 Chronic diastolic (congestive) heart failure
CPT/HCPCS: 82728; 83540; 83550

== ENCOUNTER → 2021-08-04 09:10 | Outpatient (BNVA) | payer MEDICARE, MEDICAID, SELFPAY | PROVIDERS: PCP Family Medicine; Referring Provider Family Medicine | DX: M17.12 Unilateral primary osteoarthritis, left knee (principal); M17.11 Unilateral primary osteoarthritis, right knee | CPT/HCPCS: 20610; J1040 ==

== ENCOUNTER 2021-09-20 17:43 | Outpatient (REF) | payer MEDICARE, MEDICAID, SELFPAY ==
[2021-09-20 16:53] LABS: Bilirubin Negative (Negative); Blood Large (Negative); Clarity Clear (Clear); Glucose Negative (Negative); Ketones Negative (Negative); Leukocyte Esterase Moderate (Negative); Nitrite Negative (Negative); Urobilinogen 0.2 EU/dL (Up TO 0.2)
[2021-09-20 17:00] LABS: Bacteria Few HPF (Negative); C & S Indicated? C&S Done As Ordered; Casts Negative LPF (Negative); Crystals Negative HPF (Negative); Epithelial Cells Rare HPF (Negative); Mucus Trace (Negative); Other Cells Few Transitional (Negative); RBC >50 HPF (0-2); WBC 20-50 HPF (0-5)
== END 2021-09-20 17:44 | disposition home or self-care (01) ==
LOC: LBN 17:43
PROVIDERS: PCP Family Medicine; Visit Provider Nurse Practitioner Gerontology
DX: N39.0 Urinary tract infection, site not specified (principal)
CPT/HCPCS: 87077; 81003; 81015; 87086; 87186

== ENCOUNTER 2021-11-21 18:17 | Outpatient (REF) | payer MEDICARE, MEDICAID, SELFPAY ==
[2021-11-21 18:11] LABS: Anion Gap 6.5 mmol/L (3-11); BUN 23 mg/dL (7-18); CO2 32.5 mmol/L (21.0-32.0); Calcium 9.5 mg/dL (8.5-10.1); Chloride 98 mmol/L (98-107); Estimated GFR 54.05 (mL/min/1.73m2); Glucose 250 mg/dL (74-106); Potassium 3.9 mmol/L (3.5-5.1); Sodium 137 mmol/L (136-145)
== END 2021-11-21 18:18 | disposition home or self-care (01) ==
LOC: LBN 18:17
PROVIDERS: PCP Family Medicine; Visit Provider Nurse Practitioner Gerontology
DX: I10 Essential (primary) hypertension (principal); E11.319 Type 2 diabetes mellitus with unspecified diabetic retinopathy without macular edema; I48.21 Permanent atrial fibrillation; R39.81 Functional urinary incontinence; I50.89 Other heart failure
CPT/HCPCS: 80048

== ENCOUNTER 2021-12-04 13:39 | Outpatient (REF) | payer MEDICARE, MEDICAID, SELFPAY ==
[2021-12-04 18:12] LABS: Abs Immature Grans 0.01 10^3/uL (0.0-0.06); Absolute Basophil Count 0.03 10^3/uL (0.0-0.2); Absolute Eosinophil Count 0.18 10^3/uL (0.0-0.7); Absolute Lymphocyte Count 0.74 10^3/uL (1.2-3.4); Absolute Monocyte Count 0.39 10^3/uL (0.1-0.8); Absolute Neutrophil Count 5.06 10^3/uL (1.2-6.7); Basophils % 0.5; Eosinophils % 2.8; HCT 41.3 % (36.0-46.0); HGB 12.9 g/dL (11.2-15.7); Immature Grans % 0.2; Lymphocytes % 11.5; MCH 30.2 pg (27.0-33.0); MCHC 31.2 % (32.0-36.0); MCV 97 fL (80-95); MPV 12.8 fL (8.0-11.0); Monocytes % 6.1; Neutrophils % 78.9; Platelet Count 181 10^3/uL (130-400); RBC 4.27 10^6/uL (3.93-5.22); RDW 14.2 % (11.7-14.6); RDW-SD 50.5 fL; WBC 6.41 10^3/uL (4.4-10.8)
[2021-12-04 18:19] LABS: Anion Gap 8.9 mmol/L (3-11); BUN 19 mg/dL (7-18); CO2 30.1 mmol/L (21.0-32.0); Calcium 9.5 mg/dL (8.5-10.1); Chloride 100 mmol/L (98-107); Estimated GFR 54.05 (mL/min/1.73m2); Glucose 225 mg/dL (74-106); Potassium 3.8 mmol/L (3.5-5.1); Sodium 139 mmol/L (136-145)
== END 2021-12-04 13:40 | disposition home or self-care (01) ==
LOC: LBN 13:39
PROVIDERS: PCP Family Medicine; Visit Provider Nurse Practitioner Gerontology
DX: R68.89 Other general symptoms and signs (principal); I10 Essential (primary) hypertension; E11.319 Type 2 diabetes mellitus with unspecified diabetic retinopathy without macular edema
CPT/HCPCS: 80048; 85025

== ENCOUNTER 2021-12-11 15:56 | Outpatient (REF) | payer MEDICARE, MEDICAID, SELFPAY ==
[2021-12-11 16:42] LABS: Hemoglobin A1C 7.6 % (<5.7)
[2021-12-11 17:03] LABS: Anion Gap 8.3 mmol/L (3-11); BUN 19 mg/dL (7-18); CO2 30.7 mmol/L (21.0-32.0); CREATININE 0.9 mg/dL (0.55-1.02); Calcium 9.6 mg/dL (8.5-10.1); Chloride 101 mmol/L (98-107); Glucose 181 mg/dL (74-106); Potassium 3.7 mmol/L (3.5-5.1); Sodium 140 mmol/L (136-145)
== END 2021-12-11 15:57 | disposition home or self-care (01) ==
LOC: LBN 15:56
PROVIDERS: PCP Family Medicine; Visit Provider Nurse Practitioner Gerontology
DX: E11.319 Type 2 diabetes mellitus with unspecified diabetic retinopathy without macular edema (principal); I50.89 Other heart failure; R53.82 Chronic fatigue, unspecified; E66.01 Morbid (severe) obesity due to excess calories
CPT/HCPCS: 80048; 83036

== ENCOUNTER 2022-01-24 19:52 | Outpatient (REF) | payer MEDICARE, MEDICAID, SELFPAY ==
[2022-01-24 22:35] LABS: Abs Immature Grans 0.03 10^3/uL (0.0-0.06); Absolute Basophil Count 0.04 10^3/uL (0.0-0.2); Absolute Eosinophil Count 0.22 10^3/uL (0.0-0.7); Absolute Lymphocyte Count 0.68 10^3/uL (1.2-3.4); Absolute Monocyte Count 0.48 10^3/uL (0.1-0.8); Absolute Neutrophil Count 7.01 10^3/uL (1.2-6.7); Basophils % 0.5; Eosinophils % 2.6; HCT 41.2 % (36.0-46.0); HGB 13.2 g/dL (11.2-15.7); Immature Grans % 0.4; MCH 29.7 pg (27.0-33.0); MCV 93 fL (80-95); Monocytes % 5.7; Neutrophils % 82.8; Platelet Count 180 10^3/uL (130-400); RBC 4.45 10^6/uL (3.93-5.22); RDW 14.6 % (11.7-14.6); RDW-SD 49.9 fL; WBC 8.46 10^3/uL (4.4-10.8)
[2022-01-24 22:36] LABS: Bilirubin Negative (Negative); Blood Large (Negative); Clarity Cloudy (Clear); Glucose Negative (Negative); Ketones Negative (Negative); Leukocyte Esterase Large (Negative); Nitrite Positive (Negative); Urobilinogen 0.2 EU/dL (Up TO 0.2)
[2022-01-24 22:45] LABS: Bacteria Many HPF (Negative); C & S Indicated? C&S Done As Ordered; Casts 3-5 Hyaline LPF (Negative); Crystals Negative HPF (Negative); Epithelial Cells Few HPF (Negative); Mucus Negative (Negative); Other Cells Few Renal (Negative); RBC >50 HPF (0-2); WBC >50 HPF (0-5)
[2022-01-24 22:53] LABS: ALT 29 U/L (14-59); AST 25 U/L (15-37); Albumin 3.4 g/dL (3.4-5.0); Alkaline Phosphatase 102 U/L (46-116); Anion Gap 4.8 mmol/L (3-11); BUN 18 mg/dL (7-18); Bilirubin, Total 0.5 mg/dL (0.2-1.0); CO2 35.2 mmol/L (21.0-32.0); Calcium 9.4 mg/dL (8.5-10.1); Chloride 99 mmol/L (98-107); Estimated GFR 58.75 (mL/min/1.73m2); Glucose 258 mg/dL (74-106); NT-proBNP 792 pg/mL (<300); Potassium 3.2 mmol/L (3.5-5.1); Sodium 139 mmol/L (136-145); Total Protein 7.1 g/dL (6.4-8.2)
== END 2022-01-24 19:53 | disposition home or self-care (01) ==
LOC: LBN 19:52
PROVIDERS: PCP Family Medicine; Visit Provider Nurse Practitioner Gerontology
DX: I50.9 Heart failure, unspecified (principal); N39.0 Urinary tract infection, site not specified
CPT/HCPCS: 80053; 87077; 81003; 81015; 83880; 85025; 87086; 87186

== ENCOUNTER 2022-01-30 22:11 | Outpatient (REF) | payer MEDICARE, MEDICAID, SELFPAY ==
[2022-01-30 18:39] LABS: ALT 36 U/L (14-59); AST 56 U/L (15-37); Albumin 3.2 g/dL (3.4-5.0); Alkaline Phosphatase 97 U/L (46-116); Anion Gap 6.6 mmol/L (3-11); BUN 18 mg/dL (7-18); Bilirubin, Total 0.3 mg/dL (0.2-1.0); CO2 33.4 mmol/L (21.0-32.0); CREATININE 0.9 mg/dL (0.55-1.02); Calcium 9.6 mg/dL (8.5-10.1); Chloride 98 mmol/L (98-107); Estimated GFR 66.67 (mL/min/1.73m2); Glucose 192 mg/dL (74-106); NT-proBNP 766 pg/mL (<300); Potassium 3.8 mmol/L (3.5-5.1); Sodium 138 mmol/L (136-145); Total Protein 6.8 g/dL (6.4-8.2)
== END 2022-01-30 22:12 | disposition home or self-care (01) ==
LOC: LBN 22:11
PROVIDERS: PCP Family Medicine; Visit Provider Nurse Practitioner Gerontology
DX: I50.89 Other heart failure (principal); I48.21 Permanent atrial fibrillation; E11.319 Type 2 diabetes mellitus with unspecified diabetic retinopathy without macular edema; I10 Essential (primary) hypertension; E66.01 Morbid (severe) obesity due to excess calories; N39.0 Urinary tract infection, site not specified
CPT/HCPCS: 80053; 83880

== ENCOUNTER 2022-02-26 18:27 | Outpatient (REF) | payer MEDICARE, MEDICAID, SELFPAY ==
[2022-02-26 18:14] LABS: Hemoglobin A1C 7.7 % (<5.7)
== END 2022-02-26 18:28 | disposition home or self-care (01) ==
LOC: LBN 18:27
PROVIDERS: PCP Family Medicine; Visit Provider Nurse Practitioner Gerontology
DX: E11.65 Type 2 diabetes mellitus with hyperglycemia (principal); I10 Essential (primary) hypertension
CPT/HCPCS: 83036

== ENCOUNTER 2022-03-13 16:33 | Outpatient (REF) | payer MEDICARE, MEDICAID, SELFPAY ==
[2022-03-14 10:23] LABS: Vitamin D 25 Total 29.8 ng/mL (30-100)
== END 2022-03-13 16:34 | disposition home or self-care (01) ==
LOC: LBN 16:33
PROVIDERS: PCP Family Medicine; Visit Provider Nurse Practitioner Gerontology
DX: I73.9 Peripheral vascular disease, unspecified (principal); R60.0 Localized edema; I51.9 Heart disease, unspecified; I48.21 Permanent atrial fibrillation; E11.319 Type 2 diabetes mellitus with unspecified diabetic retinopathy without macular edema; I10 Essential (primary) hypertension; I48.11 Longstanding persistent atrial fibrillation
CPT/HCPCS: 82306

== ENCOUNTER 2022-05-09 17:45 | Outpatient (REF) | payer MEDICARE, MEDICAID, SELFPAY ==
[2022-05-09 18:57] LABS: Abs Immature Grans 0.02 10^3/uL (0.0-0.06); Absolute Basophil Count 0.03 10^3/uL (0.0-0.2); Absolute Eosinophil Count 0.21 10^3/uL (0.0-0.7); Absolute Lymphocyte Count 0.53 10^3/uL (1.2-3.4); Absolute Monocyte Count 0.43 10^3/uL (0.1-0.8); Absolute Neutrophil Count 5.63 10^3/uL (1.2-6.7); Basophils % 0.4; Eosinophils % 3.1; HCT 39.6 % (36.0-46.0); HGB 12.5 g/dL (11.2-15.7); Immature Grans % 0.3; Lymphocytes % 7.7; MCH 29.4 pg (27.0-33.0); MCHC 31.6 % (32.0-36.0); MCV 93 fL (80-95); Monocytes % 6.3; Neutrophils % 82.2; Platelet Count 179 10^3/uL (130-400); RBC 4.25 10^6/uL (3.93-5.22); RDW 14.6 % (11.7-14.6); RDW-SD 50.1 fL; WBC 6.85 10^3/uL (4.4-10.8)
[2022-05-09 19:24] LABS: ALT 25 U/L (14-59); AST 30 U/L (15-37); Albumin 3.5 g/dL (3.4-5.0); Alkaline Phosphatase 95 U/L (46-116); Anion Gap 6.4 mmol/L (3-11); BUN 18 mg/dL (7-18); Bilirubin, Total 0.4 mg/dL (0.2-1.0); CO2 32.6 mmol/L (21.0-32.0); CREATININE 1.2 mg/dL (0.55-1.02); Calcium 9.5 mg/dL (8.5-10.1); Chloride 98 mmol/L (98-107); Estimated GFR 46.91 (mL/min/1.73m2); Glucose 305 mg/dL (74-106); NT-proBNP 710 pg/mL (<300); Potassium 3.5 mmol/L (3.5-5.1); Sodium 137 mmol/L (136-145); TSH (W/Ref FT4) 4.17 uIU/mL (0.36-3.74); Total Protein 6.9 g/dL (6.4-8.2)
[2022-05-09 19:32] LABS: Vitamin D 25 Total 30.7 ng/mL (30-100)
[2022-05-09 19:47] LABS: Hemoglobin A1C 7.9 % (<5.7)
[2022-05-09 20:09] LABS: Vitamin B12 814 pg/mL (193-986)
[2022-05-09 20:25] LABS: FREE T4 1.23 ng/dL (0.76-1.46)
== END 2022-05-09 17:46 | disposition home or self-care (01) ==
LOC: LBN 17:45
PROVIDERS: PCP Family Medicine; Visit Provider Nurse Practitioner Gerontology
DX: I50.32 Chronic diastolic (congestive) heart failure (principal); E03.8 Other specified hypothyroidism; E11.65 Type 2 diabetes mellitus with hyperglycemia; R68.89 Other general symptoms and signs; E66.01 Morbid (severe) obesity due to excess calories
CPT/HCPCS: 80053; 82306; 82607; 83036; 83880; 84439; 84443; 85025

== ENCOUNTER 2022-06-18 22:50 | Outpatient (REF) | payer MEDICARE, MEDICAID, SELFPAY ==
[2022-06-18 23:25] LABS: Abs Immature Grans 0.04 10^3/uL (0.0-0.06); Absolute Basophil Count 0.04 10^3/uL (0.0-0.2); Absolute Eosinophil Count 0.19 10^3/uL (0.0-0.7); Absolute Lymphocyte Count 0.57 10^3/uL (1.2-3.4); Absolute Monocyte Count 0.46 10^3/uL (0.1-0.8); Absolute Neutrophil Count 6.11 10^3/uL (1.2-6.7); Basophils % 0.5; Eosinophils % 2.6; HGB 12.5 g/dL (11.2-15.7); Immature Grans % 0.5; Lymphocytes % 7.7; MCH 29.5 pg (27.0-33.0); MCHC 32.1 % (32.0-36.0); MCV 92 fL (80-95); MPV 12.4 fL (8.0-11.0); Monocytes % 6.2; Neutrophils % 82.5; Platelet Count 195 10^3/uL (130-400); RBC 4.24 10^6/uL (3.93-5.22); RDW 14.8 % (11.7-14.6); RDW-SD 49.7 fL; WBC 7.41 10^3/uL (4.4-10.8)
[2022-06-18 23:43] LABS: ALT 28 U/L (14-59); AST 36 U/L (15-37); Albumin 3.5 g/dL (3.4-5.0); Alkaline Phosphatase 97 U/L (46-116); Anion Gap 6.4 mmol/L (3-11); BUN 22 mg/dL (7-18); Bilirubin, Total 0.4 mg/dL (0.2-1.0); CO2 33.6 mmol/L (21.0-32.0); CREATININE 1.1 mg/dL (0.55-1.02); Calcium 9.9 mg/dL (8.5-10.1); Chloride 99 mmol/L (98-107); Estimated GFR 52.08 (mL/min/1.73m2); Glucose 237 mg/dL (74-106); NT-proBNP 619 pg/mL (<300); Potassium 3.6 mmol/L (3.5-5.1); Sodium 139 mmol/L (136-145); Total Protein 6.7 g/dL (6.4-8.2)
== END 2022-06-18 22:51 | disposition home or self-care (01) ==
LOC: LBN 22:50
PROVIDERS: PCP Family Medicine; Visit Provider Nurse Practitioner Gerontology
DX: I50.89 Other heart failure (principal); R05.9 Cough, unspecified; R68.89 Other general symptoms and signs; I51.9 Heart disease, unspecified
CPT/HCPCS: 80053; 83880; 85025

== ENCOUNTER 2022-09-03 17:37 | Outpatient (REF) | payer MEDICARE, MEDICAID, SELFPAY ==
[2022-09-03 19:12] LABS: Bilirubin Negative (Negative); Blood Large (Negative); Clarity Sl Cloudy (Clear); Glucose 100 mg/dL (Negative); Ketones Negative (Negative); Leukocyte Esterase Moderate (Negative); Nitrite Negative (Negative); Specific Gravity 1.015 (1.005-1.025); Urobilinogen 0.2 mg/dL (Up to 0.2)
[2022-09-03 19:20] LABS: RBC >50 HPF (0-2); WBC 20-50 HPF (0-5)
[2022-09-03 19:21] LABS: Bacteria Few HPF (Negative); C & S Indicated? C&S Done As Ordered; Casts Negative LPF (Negative); Crystals Negative HPF (Negative); Epithelial Cells Few HPF (Negative); Mucus Negative (Negative); Other Cells Rare Transitional (Negative)
== END 2022-09-03 17:38 | disposition home or self-care (01) ==
LOC: LBN 17:37
PROVIDERS: PCP Family Medicine; Visit Provider Nurse Practitioner Gerontology
DX: R39.89 Other symptoms and signs involving the genitourinary system (principal); R82.998 Other abnormal findings in urine; R68.89 Other general symptoms and signs
CPT/HCPCS: 87077; 81003; 81015; 87086; 87186

== ENCOUNTER 2022-10-23 21:22 | Outpatient (REF) | payer MEDICARE, MEDICAID, SELFPAY ==
[2022-10-23 17:56] LABS: Abs Immature Grans 0.03 10^3/uL (0.0-0.06); Absolute Basophil Count 0.04 10^3/uL (0.0-0.2); Absolute Eosinophil Count 0.15 10^3/uL (0.0-0.7); Absolute Lymphocyte Count 0.43 10^3/uL (1.2-3.4); Absolute Monocyte Count 0.41 10^3/uL (0.1-0.8); Basophils % 0.6; Eosinophils % 2.2; HCT 35.7 % (36.0-46.0); HGB 11.1 g/dL (11.2-15.7); Immature Grans % 0.4; Lymphocytes % 6.2; MCH 28.8 pg (27.0-33.0); MCHC 31.1 % (32.0-36.0); MCV 93 fL (80-95); MPV 11.8 fL (8.0-11.0); Monocytes % 5.9; Neutrophils % 84.7; Platelet Count 198 10^3/uL (130-400); RBC 3.85 10^6/uL (3.93-5.22); RDW 15.7 % (11.7-14.6); RDW-SD 53.5 fL; WBC 6.96 10^3/uL (4.4-10.8)
[2022-10-23 18:24] LABS: Hemoglobin A1C 7.9 % (<5.7)
[2022-10-23 18:45] LABS: ALT 27 U/L (14-59); AST 31 U/L (15-37); Albumin 3.3 g/dL (3.4-5.0); Alkaline Phosphatase 90 U/L (46-116); Anion Gap 7.9 mmol/L (3-11); BUN 15 mg/dL (7-18); Bilirubin, Total 0.4 mg/dL (0.2-1.0); CO2 33.1 mmol/L (21.0-32.0); Calcium 8.9 mg/dL (8.5-10.1); Calculated LDL 78 mg/dL (<100); Chloride 98 mmol/L (98-107); Cholesterol 154 mg/dL (<200); Estimated GFR 58.39 (mL/min/1.73m2); Glucose 180 mg/dL (74-106); HDL Cholesterol 42 mg/dL (40-60); Magnesium 1.7 mg/dL (1.8-2.4); Potassium 3.5 mmol/L (3.5-5.1); Sodium 139 mmol/L (136-145); TSH (W/Ref FT4) 3.93 uIU/mL (0.36-3.74); Total Protein 6.7 g/dL (6.4-8.2); Triglyceride 171 mg/dL (<150); Vitamin B12 751 pg/mL (193-986)
== END 2022-10-23 21:23 | disposition home or self-care (01) ==
LOC: LBN 21:22
PROVIDERS: PCP Family Medicine; Visit Provider Nurse Practitioner Gerontology
DX: I11.0 Hypertensive heart disease with heart failure (principal); D51.8 Other vitamin B12 deficiency anemias; E11.9 Type 2 diabetes mellitus without complications; E03.9 Hypothyroidism, unspecified; I10 Essential (primary) hypertension
CPT/HCPCS: 80053; 80061; 82607; 83036; 83735; 84439; 84443; 85025

== ENCOUNTER 2022-11-19 17:41 | Outpatient (REF) | payer MEDICARE, MEDICAID, SELFPAY ==
[2022-11-19 16:01] LABS: Bilirubin Negative (Negative); Blood Large (Negative); Clarity Cloudy (Clear); Glucose Negative (Negative); Ketones Negative (Negative); Leukocyte Esterase Large (Negative); Nitrite Negative (Negative); Specific Gravity 1.015 (1.005-1.025); Urobilinogen 0.2 mg/dL (Up to 0.2)
[2022-11-19 16:45] LABS: Bacteria Rare HPF (Negative); C & S Indicated? C&S Done As Ordered; Casts 0-2 Hyaline LPF (Negative); Crystals Negative HPF (Negative); Epithelial Cells Few HPF (Negative); Mucus Negative (Negative); RBC >50 HPF (0-2); WBC >50 HPF (0-5)
== END 2022-11-19 17:42 | disposition home or self-care (01) ==
LOC: LBN 17:41
PROVIDERS: PCP Family Medicine; Visit Provider Nurse Practitioner Gerontology
DX: R31.9 Hematuria, unspecified (principal)
CPT/HCPCS: 87077; 81003; 81015; 87086; 87186

== ENCOUNTER 2023-01-29 17:50 | Outpatient (REF) | payer MEDICARE, MEDICAID, SELFPAY ==
[2023-01-29 18:00] LABS: Abs Immature Grans 0.05 10^3/uL (0.0-0.06); Absolute Basophil Count 0.04 10^3/uL (0.0-0.2); Absolute Eosinophil Count 0.24 10^3/uL (0.0-0.7); Absolute Lymphocyte Count 0.34 10^3/uL (1.2-3.4); Absolute Monocyte Count 0.47 10^3/uL (0.1-0.8); Absolute Neutrophil Count 6.92 10^3/uL (1.2-6.7); Basophils % 0.5; HCT 35.1 % (36.0-46.0); HGB 11.2 g/dL (11.2-15.7); Immature Grans % 0.6; Lymphocytes % 4.2; MCH 28.4 pg (27.0-33.0); MCHC 31.9 % (32.0-36.0); MCV 89 fL (80-95); MPV 11.7 fL (8.0-11.0); Monocytes % 5.8; Neutrophils % 85.9; Platelet Count 174 10^3/uL (130-400); RBC 3.94 10^6/uL (3.93-5.22); RDW-SD 48.7 fL; WBC 8.06 10^3/uL (4.4-10.8)
[2023-01-29 19:00] LABS: Magnesium 1.6 mg/dL (1.8-2.4); Vitamin B12 683 pg/mL (193-986)
[2023-01-29 20:23] LABS: Vitamin D 25 Total 28.5 ng/mL (30-100)
== END 2023-01-29 17:51 | disposition home or self-care (01) ==
LOC: LBN 17:50
PROVIDERS: PCP Family Medicine; Visit Provider Nurse Practitioner Gerontology
DX: D51.8 Other vitamin B12 deficiency anemias; E11.65 Type 2 diabetes mellitus with hyperglycemia; E03.8 Other specified hypothyroidism; E55.9 Vitamin D deficiency, unspecified
CPT/HCPCS: 82306; 82607; 83036; 83735; 84443; 85025

== ENCOUNTER → 2023-02-19 10:15 | Outpatient (BNVA) | payer MEDICARE, MEDICAID, SELFPAY | PROVIDERS: PCP Family Medicine; Referring Provider Family Medicine; Visit Provider Surgery | DX: R11.10 Vomiting, unspecified (principal); R01.1 Cardiac murmur, unspecified; E66.01 Morbid (severe) obesity due to excess calories; E11.9 Type 2 diabetes mellitus without complications; Z79.01 Long term (current) use of anticoagulants | CPT/HCPCS: 99203; 99214 ==

== ENCOUNTER 2023-03-06 06:19 | Day surgery (SDC) | payer MEDICARE, MEDICAID, SELFPAY ==
--- NOTE | 2023-03-06 06:31 | W.ANESPRE ---
General Info Date of Service Date Performed: 03/06/23 Height: 6 ft 2 in Weight: 125 kg Body Mass Index (BMI): 35.4 Surgical Procedure: Operation Date: 03/06/23 08:05 Proposed Procedure Side Surgeon p Gastroscopy Noemí Raman MD Meds Allergies and Home Medications Allergies Allergy/AdvReac Type Severity Reaction Status Date / Time erythromycin base Allergy Unknown Verified 03/05/23 12:03 ibuprofen [From Motrin] Allergy Unknown Verified 03/05/23 12:03 lactose AdvReac Unknown Intolerance Unverified 03/05/23 12:03 opium tincture AdvReac Unknown Mental Unverified 03/05/23 12:03 Status Changes SEASONAL ALLERGIES Allergy Mild Uncoded 03/05/23 12:03 Home Medication Medication Instructions Recorded blood-glucose meter (Contour Next 08/23/15 USB Meter) lancets 28 gauge #100 ea 08/23/15 multivitamin-ferrous 1 tab-cap PO DAILY 10/13/15 fumarate-folic acid 18 mg-400 mcg tablet (Centrum Complete) apixaban 5 mg tablet (Eliquis) 5 mg PO BID #60 tabs 03/21/17 lactase 9,000 unit tablet (Lactaid 9,000 unit PO TID 06/09/18 Fast Act) sulfasalazine 500 mg tablet 500 mg PO BID 06/09/18 fluticasone propionate 50 1 spray intranasal BID 04/01/19 mcg/actuation nasal spray,suspension (Flonase Allergy Relief) glucosamine sulfate 500 mg capsule 500 mg PO BID 04/01/19 (Synovacin) aspirin 81 mg tablet,delayed 81 mg PO DAILY 07/11/19 release (Aspir-) atorvastatin 40 mg tablet 40 mg PO QPM 07/11/19 vitamin B complex 1 tab PO DAILY 07/11/19 donepezil 10 mg tablet 10 mg PO QHS 08/04/21 furosemide 20 mg tablet 60 mg PO BID 08/04/21 insulin aspart U-100 100 unit/mL 5 unit subcut TID 08/04/21 (3 mL) subcutaneous pen (Novolog FlexPen U-100 Insulin aspart) levothyroxine 175 mcg tablet 175 mcg PO DAILY 08/04/21 acetaminophen 650 mg 650 mg PO Q8H PRN 06/14/22 tablet,extended release albuterol sulfate 90 mcg/actuation 2 puff inhalation TID 06/14/22 aerosol inhaler ipratropium 20 mcg-albuterol 100 1 puff inhalation Q6H 06/14/22 mcg/actuation mist for inhalation (Combivent Respimat) potassium chloride 20 mEq 20 meq PO DAILY 06/14/22 tablet,extended release torsemide 20 mg tablet 80 mg PO DAILY 06/14/22 dulaglutide 3 mg/0.5 mL 3 mg subcut QWEEK 09/13/22 subcutaneous pen injector ([facility]) ergocalciferol (vitamin D2) 50 mcg 50 mcg PO DAILY 09/13/22 (2,000 unit) capsule insulin glargine 100 unit/mL (3 See Rx Instructions subcut QAM 09/13/22 mL) subcutaneous pen (Lantus Solostar U-100 Insulin) magnesium gluconate 12.5 mg 500 mg PO BID 02/19/23 magnesium (250 mg) tablet metoprolol succinate 25 mg 12.5 mg PO BID 02/19/23 tablet,extended release 24 hr omeprazole 20 mg capsule,delayed 20 mg PO DAILY 02/19/23 release Current Visit Medications: Current Medications Generic Name Dose Route Start Last Admin Trade Name Freq PRN Reason Stop Dose Admin Ringer's Solution 1,000 mls @ 0 mls/hr 03/06/23 06:00 IV 04/04/23 23:59 INFUSION PHOEBE IV Miscellaneous Supplies 1 each 03/06/23 06:00 Iv Access IV 04/04/23 23:59 DIRECTED PHOEBE Sodium Chloride 0 ml 03/06/23 06:00 Normal Saline Flush 10 Ml Syr IV 04/04/23 23:59 PRN PRN Sodium Chloride 0 ml 03/06/23 06:00 Normal Saline 10 Ml Vial IJ 04/04/23 23:59 DIRECTED PRN Sterile Water 0 ml 03/06/23 06:00 Water,Injection,Sterile 10 Ml Vial IJ 04/04/23 23:59 DIRECTED PRN PFSH Active Problems Active Problems: Problem Status Onset Code Murmur, cardiac R01.1 Emesis R11.10 Alzheimers disease G30.9, F02.80 Localized edema R60.0 Nail dystrophy L60.3 Vulvar abscess N76.4 Bilateral cellulitis of lower leg L03.116, L03.115 Primary osteoarthritis of right knee M17.11 Primary osteoarthritis of left knee M17.12 Right knee pain M25.561 Fracture of humerus, distal, left, closed S42.402A Hypothyroidism 11/26/16 E03.9 Mild cognitive impairment 12/28/15 G31.84 Sigmoid diverticulitis 06/07/17 K57.32 Stenosis of cervical spine with myelopathy 12/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 M48.02, G99.2 Medical History Medical History Chronic fatigue, unspecified Functional urinary incontinence Hydrocephalus Hyperlipidemia Hypothyroidism Lactose intolerance Obesity (BMI 30-39.9) Osteoarthritis of knee Other amnesia Surgical History Surgical History Colonoscopy - MAC (06/07/17) History of laminectomy Tobacco Smoking/Tobacco Use Status: Never Alcohol Alcohol Intake: former Substance Use Substance use: Never Substance use type: does not use Vital Signs and Lab Results Vital Signs Most Recent Vital Signs in EMR: Temp Pulse Resp BP Pulse Ox 36.4 C L 99 H 18 118/65 94 03/06/23 07:00 03/06/23 07:00 03/06/23 07:00 03/06/23 07:00 03/06/23 07:00 Lab Results Blood Type / Crossmatch: No Data to Display Complete Blood Count: No Data to Display Complete Metabolic Panel: No Data to Display Liver Function Panel: No Data to Display Coagulation Panel: No Data to Display Cardiac Panel: No Data to Display Arterial Blood Gas: No Data to Display Venous Blood Gas: No Data to Display Pancreas Panel: No Data to Display Thyroid Panel: No Data to Display Infectious Disease: No Data to Display Blood Cultures: No Data to Display Toxicology Panel: No Data to Display Imaging and Studies Imaging and Studies Study information below may be from another EMR and interpreted by another provider. Please see original notes in EMR for more complete details. Echocardiogram Summary: 04/05: LVEF 60-65%, thickend vent septum, moderate MR, mod-severe TR, PAS 40-50 mmhg. Anesthesia Assessment and Plan Anesthesia History Personal History: Unknown Anesthesia History Family History: Family History Unknown Exercise Tolerance Exercise Tolerance: Metabolic Equivalents<4 Cardiac & Pulmonary Exam Cardiac Exam: Normal S1/S2 Heart Sounds and Heart Murmur Present Pulmonary Exam: Clear Bilateral Breath Sounds Implantable Cardiac Device Does patient have a Pacemaker or an ICD?: No Airway Exam Known Difficult Airway: No Mallampati Class: 3 Mouth Opening: Normal (> 3cm) Thyromental Distance: Greater than 3 cm Neck Range of Motion: Full ROM and Limited ROM Neck Circumference: Thick Teeth Condition: Generalized Poor Dentition ASA Classification ASA Score: ASA 3 Emergency Case?: No NPO Status NPO Status: NPO Clears >2 hours, Solids >8 hours Anesthesia Plan Resuscitation Status: Full Code Anesthesia Technique: General Anesthesia Airway Planned: Natural Airway Monitors Used: Standard Monitors Preoperative Comments:: 77 yo female for EGD. Sig PMHx: MR/TR, Alzheimer's, HTN, DMII, hypothyroid, cervical myelopathy. never smoker. Previous Anes: - colo, prop, natural airway, no issues. Discussed concerns about her heart and that she at an increased risk. She denies any major function change. 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
[2023-03-06 07:00] VITALS: BP 118/65; PULSE 99; RESP 18; TEMP 36.4; O2SAT 94
[2023-03-06] MEDS: Lactated Ringers 1,000 ML 80 ML IV (08:03)
--- NOTE | 2023-03-06 08:03 | W.PM.PROGNOT ---
Date of Service Date of service: 03/06/23 Time of Service: 08:03 Objective Last Vital Signs Temp 97.5 F L 03/06/23 07:00 Pulse 99 H 03/06/23 07:00 Resp 18 03/06/23 07:00 BP 118/65 03/06/23 07:00 Pulse Ox 94 03/06/23 07:00
[2023-03-06 08:09] VITALS: BMI 35.4
[2023-03-06 08:29] VITALS: BP 104/86; PULSE 93; RESP 18; TEMP 36.1; O2SAT 94
--- NOTE | 2023-03-06 08:30 | ENDO_ITS ---
Date of service: 03/06/23 Time of Service: 08:30 Endoscopy Report DATE OF PROCEDURE: 03/06/23 PRE-OP DIAGNOSIS: emesis POST-OP DIAGNOSIS: same PROCEDURE: EGD SURGEON: Noemí Raman ANESTHESIA TYPE: General:No Airway ESTIMATED BLOOD LOSS: 2 PATHOLOGY: none sent COMPLICATIONS: None DISPOSITION: same day INDICATIONS: Ms. Arias is a 77-year-old female who has been having episodes of emesis. It started out being after eating breakfast. Since starting a PPI and a bland diet it is not been happening after every breakfast. It is now only happening when she takes a car ride. She does have diabetes which could cause gastroparesis. She is also on Trulicity which can cause gastroparesis. She does have a murmur and had a echocardiogram back in 2017. I did review that today. I reviewed the findings of the echocardiogram with anesthesia. They do not feel that she needs another echocardiogram prior to her EGD. I discussed the EGD process with the patient in detail as well as the potential complications. She seems to understand both the procedure and the possible complications. If she does have gastroparesis secondary to diabetes then she is definitely at risk for aspiration which I discussed with her. I will have her stop the Trulicity 7 days prior to the EGD. She should stop the Eliquis 3 days prior. She can stay on the aspirin. Risks, benefits and complications have been reviewed. Complications include but are not limited to bleeding, pain, perforation, sore throat, aspiration, and adverse reaction to the medications. Questions were entertained and answered to their satisfaction and they wished to proceed. No guarantees were given or implied. FINDINGS: Normal stomach, duodenum and esophagus PROCEDURE DESCRIPTION: After informed consent was obtained the patient was take to the procedure room and placed in a supine position. Monitors were applied and a time out was done. The patients name, date of , procedure type, allergies to medications and metal in their body was reviewed. A bite block was placed and the patient was sedated. Once sedated and comfortable the gastroscope was advanced through the oropharynx which was grossly normal into the esophagus. The proximal, mid- and distal esophagus were normal. The scope was advanced into the stomach and through the pylorus into the 3rd portion of the duodenum. The duodenum was noted to be normal. The scope was retracted back into the stomach which was normal. There were no ulcers. The scope was retroflexed. The cardia and fundus were noted to be normal. There was no hiatal hernia noted. The scope was retracted back into the esophagus which was normal. The Z line was regular. The GE junction was at 40 cm. The scope was removed and the patient was woken up and taken back to [facility] in stable condition. Follow up: as needed
--- NOTE | 2023-03-06 08:35 | W.PM.DSUDISC ---
Date of service: 03/06/23 Time of Service: 09:21 Discharge Plan Disposition Patient Disposition: Home Condition: Stable Discharge Details Reason For Visit: intermittent emesis Attending Provider: Noemí Raman Primary Care Provider: Janeth Rosas Home Meds and New Rx's Prescriptions: Continued furosemide 20 mg tablet 60 mg PO BID donepezil 10 mg tablet 10 mg PO QHS levothyroxine 175 mcg tablet 175 mcg PO DAILY insulin aspart U-100 [Novolog FlexPen U-100 Insulin] 100 unit/mL (3 mL) insulin pen 5 unit subcut TID torsemide 20 mg tablet 80 mg PO DAILY potassium chloride 20 mEq tablet extended release 20 meq PO DAILY acetaminophen 650 mg tablet extended release 650 mg PO Q8H PRN albuterol sulfate 90 mcg/actuation HFA aerosol inhaler 2 puff inhalation TID Combivent Respimat 20-100 mcg/actuation mist 1 puff inhalation Q6H Trulicity 3 mg/0.5 mL pen injector 3 mg subcut QWEEK ergocalciferol (vitamin D2) 50 mcg (2,000 unit) capsule 50 mcg PO DAILY insulin glargine [Lantus Solostar U-100 Insulin] 100 unit/mL (3 mL) insulin pen See Rx Instructions subcut QAM Rx Instructions: 33 U am and 10 U pm subcutaneously every morning; omeprazole 20 mg capsule,delayed release(DR/EC) 20 mg PO DAILY magnesium gluconate 12.5 mg magne- sium (250 mg) tablet 500 mg PO BID metoprolol succinate 25 mg tablet extended release 24 hr 12.5 mg PO BID (DME) blood-glucose meter [Contour Next USB Meter] 1 EACH misc 1 ea Miscellaneous DAILY (DME) lancets 1 EACH misc 1 ea Miscellaneous DAILY Qty: 100 Rx Instructions: FOR METER. NO INSULIN. DIAGNOSIS CODE 250.0__ Centrum Complete 1 EACH tablet 1 tab-cap PO DAILY sulfasalazine 500 mg Tablet 500 mg PO BID lactase [Lactaid Fast Act] 9,000 unit Tablet 9,000 unit PO TID glucosamine sulfate [Synovacin] 500 mg Capsule 500 mg PO BID fluticasone propionate [Flonase Allergy Relief] 50 mcg/actuation [place],Suspension 1 spray INTRANASAL BID atorvastatin 40 mg Tablet 40 mg PO QPM aspirin [Aspir-81] 81 mg Tablet,Delayed Release (Dr/Ec) 81 mg PO DAILY vitamin B complex Tablet 1 tab PO DAILY Eliquis 5 MG tablet 5 mg PO BID Qty: 60 2RF Rx Instructions: for atrial fibrillation Discharge Instructions Additional Instructions: Findings: Normal esophagus, stomach and duodenum Follow up: as needed Please call if you develop: fevers >101.5 Nausea or Vomiting Abdominal pain that is not transient Rectal bleeding that is more then a tbsp A hard abdomen and inability to pass gas DAY SURGERY UNIT POST ENDOSCOPY INSTRUCTIONS Instructions for everyone who is given Anesthesia: For your safety, please do the following for the next 24 Hours: a. Do not drive or operate dangerous equipment b. Do not drink alcohol beverages or use any recreational drugs for the first 24 hours or while taking pain medications. The medications in your body may have a reaction that can be dangerous. c. Do not make any important decisions or sign any important papers 1. Generally there are no restrictions on your activity after a day or so has gone by, but you may feel a bit fatigued for a few days. 2. After you arrive home you may have a light meal and return to a normal diet as you can tolerate it without feeling sick to your stomach. 3. After surgery, you may feel pain or discomfort. This should be only transient, but if it persists please contact your doctor. 4. If there are any questions regarding the findings of your procedure, please feel free to contact your doctor. 6. If you are unable to contact your doctor with a problem, contact the hospital at [phone]. 7. Continue all your regular medications unless directed otherwise. I understand the above instructions and have no questions. Signature of Patient or Responsible Adult Escort Date/Time Name of Responsible Adult Escort Signature of Nurse Date/Time Stand Alone Forms: Anesthesia Discharge Inst., DSU Post EGD Instructions, Imer Gore (DSU) Activity:: Activity as Tolerated Diet:: As Tolerated DS: Diagnosis Discharge Diagnosis (1) Emesis: Status: Acute Asessment and Plan: Patient is seen and examined after their endoscopy. Patient has minimal sore throat. They have been able to tolerate liquids. They do not have any Nausea or Vomiting. They are not having any chest pain or shortness of breath. They have been able to pass gas and are not having any abdominal pain or distention. they have not vomited any blood. The vital signs have been stable-see nursing notes. We discussed findings on their endoscopy We reviewed the importance of lifestyle modifications- see diet recommendations We reviewed any new medications that the patient may be prescribed- see medicine reconciliation. Patient will either be sent a letter with the biopsy results or follow up in the office- see discharge instructions Patient was given explicit instructions for emergency follow up post endoscopy- see discharge instructions Patient verbalized understanding and was discharged in stable and satisfactory condition. See nursing notes.
[2023-03-06 08:54] VITALS: BP 116/75; PULSE 91; RESP 18; TEMP 36.1; O2SAT 95
--- NOTE | 2023-03-06 09:01 | W.ANESPOSTOP ---
Postoperative Evaluation Date, Time and Location Date Performed: 03/06/23 Time Performed: 08:40 Patient Location: Day Surgery Unit Vital Signs Most Recent Imported Vital Signs: Most Recent Vital Signs Temp Pulse Resp BP Pulse Ox 36.1 C L 93 H 18 104/86 94 03/06/23 08:29 03/06/23 08:29 03/06/23 08:29 03/06/23 08:29 03/06/23 08:29 Pain Score Most Recent Pain Score: Most Recent Pain Score Pain Level 0 03/06/23 08:29 Assessment Mental Status: Awake (Alert & Oriented to Patient Baseline) Airway and Respiratory Function: Patent airway with normal (patient baseline) respiratory exam Cardiovascular Function: Hemodynamically Stable Hydration Status: Adequately Hydrated Nausea & Vomiting: No Nausea or Vomiting Pain: Pt. Denies Any Pain Peripheral Nerve Block: Patient did not receive a nerve block
== END 2023-03-06 09:50 | disposition home or self-care (01) ==
PROVIDERS: PCP Family Medicine; Visit Provider Surgery
PROC: 0DJ68ZZ Inspection of Stomach, Via Natural or Artificial Opening Endoscopic (ICD-10-PCS; CPT 43235; principal; 2023-03-06 08:00)
DX: R11.10 Vomiting, unspecified (principal); E11.9 Type 2 diabetes mellitus without complications; Z79.84 Long term (current) use of oral hypoglycemic drugs; Z79.85 Long-term (current) use of injectable non-insulin antidiabetic drugs
CPT/HCPCS: 43235; J2001; J2704

== ENCOUNTER 2023-03-28 14:34 | Emergency (ER) | payer MEDICARE, MEDICAID, SELFPAY ==
--- NOTE | 2023-03-28 14:30 | DI.CT_ITS ---
Exam(s) CT HEAD WO EXAM: CT HEAD WO CLINICAL HISTORY: unwitnessed fall on eliquis, unknown LOC. TECHNIQUE: Imaging Protocol: Axial computed tomography images with coronal and sagittal reformatted images were created and reviewed COMPARISON: CT CT HEAD WO from 04/01/2019 FINDINGS: There are no skull fractures. There is no fluid in the visualized paranasal sinuses. There is no evidence of intracranial hemorrhage, mass effect, or shift of midline structures. There are no extra-axial fluid collections. The ventricles are not enlarged or shifted and there is no blo od within the ventricular system nor within the basal cisterns. There is abundant bilateral periventricular hypodensity again consistent with cross disease. No obvi ous acute territorial infarct. IMPRESSION: No acute intracranial findings on this noninfused CT scan of the brain. Chronic small-vessel ischemic changes noted Called by myself to ER. RADIATION DOSE DELIVERED: Total DLP DATA REPOSITORY: All CT scans at this facility are submitted to the National Radiology Data Registry (NRDR) Dose Index Registry (DIR) with the [employer] ([employer]). RADIATION OPTIMIZATION: All CT scans at this facility use at least one of these dose optimization te chniques: automated exposure control; mA and/or kV adjustment per patient size (includes targeted exa ms where dose is matched to clinical indication); or iterative reconstruction.
--- NOTE | 2023-03-28 14:30 | DI.RAD_ITS ---
Exam(s) XR PELVIS AP EXAM: XR PELVIS AP CLINICAL HISTORY: fall, dementia, knee pain. TECHNIQUE: 2D digital imaging was performed. COMPARISON: No exams were available for comparison FINDINGS: Exam limited by patient body habitus. BONES: No acute fracture is present. No bony destructive lesion is seen. JOINTS: No dislocation present. No joint space narrowing is present. Bilateral acetabular spurring. SOFT TISSUE: Normal. IMPRESSION: Limited exam. No gross evidence of fracture. DATA REPOSITORY: RADIATION DOSE DELIVERED:
--- NOTE | 2023-03-28 14:30 | DI.RAD_ITS ---
Exam(s) XR CHEST 1V IN DI DEPT EXAM: XR CHEST 1V IN DI DEPT CLINICAL HISTORY: unwitnessed fall TECHNIQUE: 2D digital imaging was performed. COMPARISON: CR XR CHEST 2V PA LATERAL from 07/27/[address] CHEST W from 09/30/2019 FINDINGS: Exam limited by poor pulmonary inflation and leads coiled over the chest. LUNGS: Clear. No pleural abnormality seen. HEART: Enlarged. AORTA: Normal diameter. BONES: Unremarkable for age. No rib fracture identified. Soft tissues: Unremarkable. IMPRESSION: No acute findings. DATA REPOSITORY: RADIATION DOSE DELIVERED:
--- NOTE | 2023-03-28 14:30 | DI.RAD_ITS ---
Exam(s) XR KNEE RT 3V AP,LAT,ANNELIESE EXAM: XR KNEE RT 3V AP,LAT,ANNELIESE CLINICAL HISTORY: unwittnessed fall, knee pain, dementia. TECHNIQUE: 2D digital imaging was performed. Three views. COMPARISON: CR RIGHT KNEE 3 VIEWS from 09/12/2011 FINDINGS: BONES: No acute fracture is present. No bony destructive lesion is seen. Periarticular spurring. JOINTS: The knee is normally aligned. No joint effusion is seen. Narrowing lateral femoral tibial j oint space. Chondrocalcinosis. SOFT TISSUE: Vascular calcifications. IMPRESSION: No acute abnormality. DATA REPOSITORY: RADIATION DOSE DELIVERED:
--- NOTE | 2023-03-28 14:30 | DI.RAD_ITS ---
Exam(s) XR KNEE LT 3V AP,LAT,ANNELIESE EXAM: XR KNEE LT 3V AP,LAT,ANNELIESE CLINICAL HISTORY: unwittnessed fall, knee pain, dementia. TECHNIQUE: 2D digital imaging was performed. Three views. COMPARISON: CR XR KNEE RT 3V AP,LAT,ANNELIESE from 03/28/2023 FINDINGS: BONES: No acute fracture is present. No bony destructive lesion is seen. JOINTS: The knee is normally aligned. No joint effusion is seen. Periarticular spurring. Joint spa eliazar are maintained. Chondrocalcinosis. SOFT TISSUE: Vascular calcifications. IMPRESSION: No acute abnormality. DATA REPOSITORY: RADIATION DOSE DELIVERED:
[2023-03-28 14:34] VITALS: BP 117/82; PULSE 102; RESP 22; TEMP 36.2; O2SAT 99
--- NOTE | 2023-03-28 14:46 | W.ED.GENAD ---
Discharge Plan Disposition Patient Disposition: [facility] Facility(SNF) Condition: Good Discharge Details Clinical Impression: Kidney disease, Anemia, Hyponatremia, Fall Primary Care Provider: Janeth Rosas ED Provider: Lacy Segura Home Meds and New Rx's Prescriptions: No Action furosemide 20 mg tablet 60 mg PO BID donepezil 10 mg tablet 10 mg PO QHS levothyroxine 175 mcg tablet 175 mcg PO DAILY insulin aspart U-100 [Novolog FlexPen U-100 Insulin] 100 unit/mL (3 mL) insulin pen 5 unit subcut TID torsemide 20 mg tablet 80 mg PO DAILY potassium chloride 20 mEq tablet extended release 20 meq PO DAILY acetaminophen 650 mg tablet extended release 650 mg PO Q8H PRN albuterol sulfate 90 mcg/actuation HFA aerosol inhaler 2 puff inhalation TID Combivent Respimat 20-100 mcg/actuation mist 1 puff inhalation Q6H Trulicity 3 mg/0.5 mL pen injector 3 mg subcut QWEEK ergocalciferol (vitamin D2) 50 mcg (2,000 unit) capsule 50 mcg PO DAILY insulin glargine [Lantus Solostar U-100 Insulin] 100 unit/mL (3 mL) insulin pen See Rx Instructions subcut QAM Rx Instructions: 33 U am and 10 U pm subcutaneously every morning; omeprazole 20 mg capsule,delayed release(DR/EC) 20 mg PO DAILY magnesium gluconate 12.5 mg magne- sium (250 mg) tablet 500 mg PO BID metoprolol succinate 25 mg tablet extended release 24 hr 12.5 mg PO BID (DME) blood-glucose meter [Contour Next USB Meter] 1 EACH misc 1 ea Miscellaneous DAILY (DME) lancets 1 EACH misc 1 ea Miscellaneous DAILY Qty: 100 Rx Instructions: FOR METER. NO INSULIN. DIAGNOSIS CODE 250.0__ Centrum Complete 1 EACH tablet 1 tab-cap PO DAILY sulfasalazine 500 mg Tablet 500 mg PO BID lactase [Lactaid Fast Act] 9,000 unit Tablet 9,000 unit PO TID glucosamine sulfate [Synovacin] 500 mg Capsule 500 mg PO BID fluticasone propionate [Flonase Allergy Relief] 50 mcg/actuation [place],Suspension 1 spray INTRANASAL BID atorvastatin 40 mg Tablet 40 mg PO QPM aspirin [Aspir-81] 81 mg Tablet,Delayed Release (Dr/Ec) 81 mg PO DAILY vitamin B complex Tablet 1 tab PO DAILY Eliquis 5 MG tablet 5 mg PO BID Qty: 60 2RF Rx Instructions: for atrial fibrillation Discharge Instructions Instructions: Hyponatremia (ED), Anemia (ED) Additional Instructions: FOLLOW UP WITH PRIMARY CARE DOCTOR WITHIN 48 HOURS REGARDING BLOOD TESTS- LOW HEMOGLOBIN, LOW SODIUM, AND ELEVATED CREATININE. Return to the emergency department for new or worsening symptoms including altered mental status, edema, lightheadedness, or other concerns. Referrals: Janeth Rosas [Primary Care Provider] - Discharge Data Discharge Date/Time-TO BE ENTERED AT DEPARTURE: 03/28/23 18:16 Medical Decision Making 78yo F with dementia, HTN, DM, HLD, hypothyroid, presenting via EMS from nursing facility after a fall from standing. History from patient, EMS, [facility] record review. Per EMS, patient fell this morning. Has been acting at her baseline, does c/o knee pain. Slightly tachycardiac on arrival to 102, vital signs otherwise reassuring. Bilateral knee tenderness on exam, no other traumatic findings. Baseline dementia and poor historian. Based on exam, knee pain more likely chronic with known osteoarthritis however given age will get plain films. Low suspicion for serious intracranial or intraabdominal/thoracic injury; will eval with non-con head CT, plain films chest/pelvis. Labs reviewed as below, CBC with mild anemia at 9.8, CMP with hyponateremia at 130 and elevated Cr at 2.6 both of unclear chronicity with no recent labs to compare. Based on exam, do not believe anemia is 2/t trauma. Further workup for these appropriate on an outpatient basis. Head CT independently reviewed, no intracranial hemorrhage on my view, agree with radiology read below. Plain films independently reviewed, no displaced fractures or dislocations, agree with radiology read below. On reassessment she remains well appearing, vital signs reassuring with HR in 70's, non-focal neurologic exam. No indication for inpatient treatment, hyponatremia of unclear duration and seems to be asymptomatic, reportedly at baseline mental status. Discharged home; discharge instructions including return precautions were reviewed with patient and sent to facility. Medical Records Medical records reviewed: Yes I reviewed the patient's medical records. Imaging Data Radiologic Study: Attestation: I personally reviewed and interpreted this imaging study as follows: Imaging: CT Scan Radiologist's impression: IMPRESSION: No acute intracranial findings on this noninfused CT scan of the brain. Chronic small-vessel ischemic changes noted Radiologic Study #2: Imaging: X-Ray Radiologist's impression: Pelvis IMPRESSION: Limited exam. No gross evidence of fracture. Radiologic Study #3: Imaging: X-Ray Radiologist's impression: Chest IMPRESSION: No acute findings. Radiologic Study #4: Imaging: X-Ray Radiologist's impression: Left knee IMPRESSION: No acute abnormality. Radiologic Study #5: Imaging: X-Ray Radiologist's impression: right knee IMPRESSION: No acute abnormality. Lab Data Lab results reviewed: Yes I reviewed the patient's lab results. Labs: Laboratory Tests Range/Units 03/28/23 15:35 WBC (4.4-10.8) 10^3/uL 12.92 H RBC (3.93-5.22) 10^6/uL 3.51 L Hgb (11.2-15.7) g/dL 9.8 L Hct (36.0-46.0) % 29.9 L MCV (80-95) fL 85 MCH (27.0-33.0) pg 27.9 MCHC (32.0-36.0) % 32.8 RDW (11.7-14.6) % 14.8 H Plt Count (130-400) 10^3/uL 173 MPV (8.0-11.0) fL 11.0 Immature Gran % 0.9 Neutrophils % 90.3 Lymphocytes % 2.9 Monocytes % 5.2 Eosinophils % 0.4 Basophils % 0.3 Nucleated RBC % (0.0-0.3) % 0.0 Absolute Neutrophils (1.2-6.7) 10^3/uL 11.67 H Absolute Lymphocytes (1.2-3.4) 10^3/uL 0.37 L Absolute Monocytes (0.1-0.8) 10^3/uL 0.67 Absolute Eosinophils (0.0-0.7) 10^3/uL 0.05 Absolute Basophils (0.0-0.2) 10^3/uL 0.04 Sodium (136-145) mmol/L 130 L Potassium (3.5-5.1) mmol/L 4.0 Chloride (98-107) mmol/L 93 L Carbon Dioxide (21.0-32.0) mmol/L 30.3 Anion Gap (3-11) mmol/L 6.7 BUN (7-18) mg/dL 33 H Creatinine (0.55-1.02) mg/dL 2.6 H Est GFR (CKD-EPI 2020) (mL/min/1.73m2) 18.44 Glucose (74-106) mg/dL 238 H Calcium (8.5-10.1) mg/dL 9.5 Total Bilirubin (0.2-1.0) mg/dL 0.4 AST (15-37) U/L 24 ALT (14-59) U/L 20 Alkaline Phosphatase (46-116) U/L 130 H Total Protein (6.4-8.2) g/dL 7.1 Albumin (3.4-5.0) g/dL 2.6 L HPI General Mode of arrival: EMS. Date/Time Provider Initiated Documentation: 03/28/23 14:41. Limitations to Documentation: other (dementia). Information obtained by: patient, EMS and old records reviewed. HPI Narrative: 78yo F with dementia, HTN, DM, HLD, hypothyroid, presenting via EMS from nursing facility after a fall from standing. Per EMS, patient fell this morning. Since then has complained of knee and shoulder pain. Unknown if she struck her head or lost consciousness. Per EMS , staff at facility report that she is acting at her baseline. Patient reports falling this morning, does not recall if she struck her head or not. Cannot describe fall. Reports bilateral knee pain, otherwise denies pain. No chest pain, abdominal pain, shortness of breath, numbness, tingling, weakness, vertigo, or other concerns. Otherwise in her usual state of health. Related Data Home Medications Medication Instructions Recorded Confirmed blood-glucose meter (Contour Next 08/23/15 03/06/23 USB Meter) lancets 28 gauge #100 ea 08/23/15 02/19/23 multivitamin-ferrous 1 tab-cap PO DAILY 10/13/15 03/06/23 fumarate-folic acid 18 mg-400 mcg tablet (Centrum Complete) apixaban 5 mg tablet (Eliquis) 5 mg PO BID #60 tabs 03/21/17 03/05/23 lactase 9,000 unit tablet (Lactaid 9,000 unit PO TID 06/09/18 03/06/23 Fast Act) sulfasalazine 500 mg tablet 500 mg PO BID 06/09/18 03/06/23 fluticasone propionate 50 1 spray intranasal BID 04/01/19 03/06/23 mcg/actuation nasal spray,suspension (Flonase Allergy Relief) glucosamine sulfate 500 mg capsule 500 mg PO BID 04/01/19 03/06/23 (Synovacin) aspirin 81 mg tablet,delayed 81 mg PO DAILY 07/11/19 03/05/23 release (Aspir-) atorvastatin 40 mg tablet 40 mg PO QPM 07/11/19 03/06/23 vitamin B complex 1 tab PO DAILY 07/11/19 03/06/23 donepezil 10 mg tablet 10 mg PO QHS 08/04/21 03/06/23 furosemide 20 mg tablet 60 mg PO BID 08/04/21 03/06/23 insulin aspart U-100 100 unit/mL 5 unit subcut TID 08/04/21 03/06/23 (3 mL) subcutaneous pen (Novolog FlexPen U-100 Insulin aspart) levothyroxine 175 mcg tablet 175 mcg PO DAILY 08/04/21 03/06/23 acetaminophen 650 mg 650 mg PO Q8H PRN 06/14/22 03/06/23 tablet,extended release albuterol sulfate 90 mcg/actuation 2 puff inhalation TID 06/14/22 03/06/23 aerosol inhaler ipratropium 20 mcg-albuterol 100 1 puff inhalation Q6H 06/14/22 03/06/23 mcg/actuation mist for inhalation (Combivent Respimat) potassium chloride 20 mEq 20 meq PO DAILY 06/14/22 03/06/23 tablet,extended release torsemide 20 mg tablet 80 mg PO DAILY 06/14/22 03/06/23 dulaglutide 3 mg/0.5 mL 3 mg subcut QWEEK 09/13/22 03/05/23 subcutaneous pen injector ([facility]) ergocalciferol (vitamin D2) 50 mcg 50 mcg PO DAILY 09/13/22 03/06/23 (2,000 unit) capsule insulin glargine 100 unit/mL (3 See Rx Instructions subcut QAM 09/13/22 03/06/23 mL) subcutaneous pen (Lantus Solostar U-100 Insulin) magnesium gluconate 12.5 mg 500 mg PO BID 02/19/23 03/06/23 magnesium (250 mg) tablet metoprolol succinate 25 mg 12.5 mg PO BID 02/19/23 03/06/23 tablet,extended release 24 hr omeprazole 20 mg capsule,delayed 20 mg PO DAILY 02/19/23 03/06/23 release Previous Rx's Medication Instructions Recorded apixaban 5 mg tablet (Eliquis) 5 mg PO BID #60 tabs 03/21/17 Allergies Allergy/AdvReac Type Severity Reaction Status Date / Time erythromycin base Allergy Unknown Verified 03/05/23 12:03 ibuprofen [From Motrin] Allergy Unknown Verified 03/05/23 12:03 lactose AdvReac Unknown Intolerance Unverified 03/05/23 12:03 opium tincture AdvReac Unknown Mental Unverified 03/05/23 12:03 Status Changes SEASONAL ALLERGIES Allergy Mild Uncoded 03/05/23 12:03 General Stated Complaint: Orthopedic ANASTACIA: 3 Review of Systems Narrative: see HPI PFSH All Active Problems (Updated 03/28/23 @ 17:23 by Lacy Segura MD) Fall (Acute) Hyponatremia (Acute) Anemia (Chronic) Kidney disease (Acute) Murmur, cardiac (Acute) Emesis (Acute) Alzheimers disease (Chronic) Localized edema (Acute) Nail dystrophy (Acute) Vulvar abscess (Acute) Bilateral cellulitis of lower leg (Acute) Primary osteoarthritis of right knee (Acute) Injected: 08/04/21; 09/01/2020; 04/01/2019 Primary osteoarthritis of left knee (Acute) Injected: 08/04/21; 09/01/2020; 04/01/2019 Right knee pain (Acute) After discussing risks and benefits I injected Selin's right knee with 80 mg Depo-Medrol. She tolerated the procedure well. She knows that it may initially feel better and then worse. It will take about 10 days to know if this is helpful. If not improved will consider orthopedic consult Fracture of humerus, distal, left, closed (Acute) Hypothyroidism (Acute 11/26/16) Mild cognitive impairment (Acute 12/28/15) Sigmoid diverticulitis (Acute 06/07/17) Stenosis of cervical spine with myelopathy (Acute 12/28/15) Medical History (Updated 03/28/23 @ 17:23 by Lacy Segura MD) Functional urinary incontinence Hydrocephalus Obesity (BMI 30-39.9) Osteoarthritis of knee Lactose intolerance Hypothyroidism Hyperlipidemia Chronic fatigue, unspecified Other amnesia Surgical History (Updated 03/07/23 @ 07:57 by Cortney Tipton) History of esophagogastroduodenoscopy (~02/2023) History of laminectomy Colonoscopy - MAC (06/07/17) Social History Smoking/Tobacco Use Status: Never Smoking risk assessment performed?: Yes Alcohol Intake: former Drug use: Never Substance use type: does not use Housing: prison Current gender identity: female Exam Narrative Exam Narrative: GENERAL: Alert, in no acute distress. SKIN: Warm and well perfused. No rashes, bruises, discolorations or abrasions. HEAD: Atraumatic, normocephalic without edema, discoloration or evidence of trauma. Facial bones without deformities or tenderness. EYES: PERRL. No scleral icterus or conjunctival injection. Extraocular muscles intact without nystagmus or diplopia. No proptosis or enophthalmos. NOSE: No discharge, tenderness, laxity. No nasal septal hematoma. MOUTH: No malocclusion or trismus. Moist mucus membranes without blood. NECK: Trachea midline. No discolorations or edema. CV: Regular rate and rhythm, Normal s1 and s2. No murmurs, rubs, or gallops. PV: Radial pulses 2+ bilaterally and symmetric. Dorsalis pedis pulses 1+ bilaterally and symmetric. 2+ capillary refill. CHEST: No abrasions or ecchymosis. Chest symmetric with respirations. No chest wall tenderness. Lungs are clear to auscultation bilaterally. ABDOMEN: No ecchymosis or abrasions. Soft, nondistended, nontender. BACK: No abrasions, skin openings, or ecchymosis. Spine without bony tenderness, no step offs. PELVIC: Pelvis stable, nontender to lateral compression. MSK: No gross deformities or discolorations or lesions. Bilateral knees TTP, no palpable effusion. Otherwise no extremity tenderness and tolerates full range of motion of extremities without tenderness. NEURO: Alert and oriented to person and place. GCS 14. Sensation grossly intact. Moves all extremities freely against gravity. Course Vital Signs Vital signs: Vital Signs Temperature 36.2 C L 03/28/23 14:34 Pulse 102 H 03/28/23 14:34 Respiratory Rate 22 03/28/23 14:34 Blood Pressure 117/82 03/28/23 14:34 Pulse Oximetry 99 03/28/23 14:34 Temperature 36.2 C L 03/28/23 14:34 Temperature Source Skin 03/28/23 14:34 Pulse 102 H 03/28/23 14:34 Respiratory Rate 22 03/28/23 14:34 Blood Pressure 117/82 03/28/23 14:34 Pulse Oximetry 99 03/28/23 14:34 Oxygen Delivery Method Room Air 03/28/23 14:34 Oxygen Flow Rate 0 03/28/23 14:34
[2023-03-28 15:41] LABS: Abs Immature Grans 0.11 10^3/uL (0.0-0.06); Absolute Basophil Count 0.04 10^3/uL (0.0-0.2); Absolute Eosinophil Count 0.05 10^3/uL (0.0-0.7); Absolute Monocyte Count 0.67 10^3/uL (0.1-0.8); Absolute Neutrophil Count 11.67 10^3/uL (1.2-6.7); Basophils % 0.3; Eosinophils % 0.4; HCT 29.9 % (36.0-46.0); HGB 9.8 g/dL (11.2-15.7); Immature Grans % 0.9; Lymphocytes % 2.9; MCH 27.9 pg (27.0-33.0); MCHC 32.8 % (32.0-36.0); MCV 85 fL (80-95); Monocytes % 5.2; Neutrophils % 90.3; Platelet Count 173 10^3/uL (130-400); RBC 3.51 10^6/uL (3.93-5.22); RDW 14.8 % (11.7-14.6); RDW-SD 46.5 fL; WBC 12.92 10^3/uL (4.4-10.8)
[2023-03-28 15:43] LABS: Absolute Lymphocyte Count 0.37 10^3/uL (1.2-3.4)
[2023-03-28 15:55] LABS: ALT 20 U/L (14-59); AST 24 U/L (15-37); Albumin 2.6 g/dL (3.4-5.0); Alkaline Phosphatase 130 U/L (46-116); Anion Gap 6.7 mmol/L (3-11); BUN 33 mg/dL (7-18); Bilirubin, Total 0.4 mg/dL (0.2-1.0); CO2 30.3 mmol/L (21.0-32.0); CREATININE 2.6 mg/dL (0.55-1.02); Calcium 9.5 mg/dL (8.5-10.1); Chloride 93 mmol/L (98-107); Estimated GFR 18.44 (mL/min/1.73m2); Glucose 238 mg/dL (74-106); Sodium 130 mmol/L (136-145); Total Protein 7.1 g/dL (6.4-8.2)
== END 2023-03-28 18:16 | disposition skilled nursing facility (03) ==
PROVIDERS: Emergency Provider Student in an Organized Health Care Education/Training Program; PCP Family Medicine
DX: E87.1 Hypo-osmolality and hyponatremia (principal); D64.9 Anemia, unspecified; M25.561 Pain in right knee; M25.511 Pain in right shoulder; G30.9 Alzheimer's disease, unspecified; F02.80 Dementia in other diseases classified elsewhere, unspecified severity, without behavioral disturbance, psychotic disturbance, mood disturbance, and anxiety; I10 Essential (primary) hypertension; E11.9 Type 2 diabetes mellitus without complications; E78.5 Hyperlipidemia, unspecified; E03.9 Hypothyroidism, unspecified; W18.39XA Other fall on same level, initial encounter; Y93.89 Activity, other specified; Y92.098 Other place in other non-institutional residence as the place of occurrence of the external cause
CPT/HCPCS: 73562; 80053; 99284; 70450; 71045; 72170; 85025; 99283

== ENCOUNTER 2023-04-02 09:57 | Inpatient (IN) | payer MEDICARE, MEDICAID, SELFPAY ==
[2023-04-02] VITALS (133 sets, daily range): BP systolic 76–195; BP diastolic 44–146; PULSE 67–165; RESP 10–44; TEMP 36–38.6; O2SAT 85–100; BMI 29.5
--- NOTE | 2023-04-02 09:45 | RT.EKG_ITS ---
APPROVED REPORT Exam: Resting ECG Reason for Exam: tachycardia Patient Location: E HR:123 bpm ECG Measurements Heart Rate 123 AXIS NH [id number] P [id number] QRSd 96 QRS -6 QT 307 T 152 QTc 439 Conclusion Atrial fibrillation...V-rate 102-146, irreg A-activity Probable LVH with secondary repol abnrm...multiple LVH criteria Inferior infarct, old...Q >35mS, II III aVF Atrial fibrillaiton with rapid ventricular response, LVH, inferior Q wave. No prior for comparrison. WD
--- NOTE | 2023-04-02 10:00 | DI.CT_ITS ---
Exam(s) CT HEAD WO EXAM: CT HEAD WO CLINICAL HISTORY: fever, confused, vomiting, fall. TECHNIQUE: Imaging Protocol: Axial computed tomography images with coronal and sagittal reformatted images were created and reviewed COMPARISON: CT CT HEAD WO from 03/28/2023 FINDINGS: Ventricles and Extra axial spaces: Normal in size and morphology for the degree of atrophy.. Hemorrhage: None. Cerebral parenchyma: Atrophy. White matter changes of small vessel disease. No evidence of acute in farct or mass. Midline shift: None. Brainstem/Cerebellum: Normal. Calvarium: Normal. Visualized Paranasal sinuses/Mastoids: Clear. Soft Tissues: Unremarkable. IMPRESSION: No acute intracranial process. RADIATION DOSE DELIVERED: Total DLP DATA REPOSITORY: All CT scans at this facility are submitted to the National Radiology Data Registry (NRDR) Dose Index Registry (DIR) with the [employer] (A[employer]). RADIATION OPTIMIZATION: All CT scans at this facility use at least one of these dose optimization te chniques: automated exposure control; mA and/or kV adjustment per patient size (includes targeted exa ms where dose is matched to clinical indication); or iterative reconstruction.
--- NOTE | 2023-04-02 10:11 | DI.CT_ITS ---
Exam(s) CT CHEST/ABD/PEL WO EXAM: CT CHEST/ABD/PEL WO CLINICAL HISTORY: fever, alzheimers. TECHNIQUE: Imaging Protocol: Axial computed tomography images with coronal and sagittal reformatted images were created and reviewed CONTRAST MATERIAL: Intravenous: Omnipaque 350 Contrast volume:100 ml Oral: yes / no COMPARISON: CT CT CHEST W from 09/30/2019 CR XR PELVIS AP from 03/28/2023 FINDINGS: CHEST: Exam limited by respiratory motion. Tracheobronchial tree: Patent where visualized. Pulmonary parenchyma: Limited by respiratory motion. Suggestion of diffuse bilateral ground-glass op acities. No consolidation or dominant measurable mass. Pleura: No effusion or pneumothorax. Lymph nodes: Within normal limits. Aorta: Thoracic portion non-dilated. Heart: Mildly enlarged. Moderate coronary artery calcifications. Aortic valve calcifications. Bones: Fusion between mid thoracic vertebral bodies. Degenerative changes. ABDOMEN and PELVIS: Exam limited by patient body habitus and arm positioning as well as motion. Liver: Normal density. No measurable mass. Gallbladder and biliary tract: High-density at gallbladder fossa low likely cholecystectomy clips. N o biliary dilatation. Pancreas: Normal density, no abnormal calcifications or inflammatory process. Spleen: Normal. Kidneys: Normal size, contour and axis. High-density material within both renal collecting systems. Absence of administered IV contrast, these would represent staghorn calculi. There is moderate right hydronephrosis. Two adjacent stones noted in distal ureter measuring 3 millimeters seen. Aorta: Abdominal portion non-dilated. Mild atherosclerotic changes. Lymph nodes: Within normal limits. Soft tissues: Unremarkable. Bladder: Unremarkable. Bowel: No obstruction or bowel wall thickening. Diverticulosis. Appendix normal. Peritoneal cavity: No ascites. No focal collection or mesenteric inflammatory response. Bones: Degenerative changes. Reproductive organs: Within normal limits. IMPRESSION: Limited exam due to motion. Chest: Question of bilateral mild diffuse ground-glass opacities versus motion artifact. Abdomen pelvis: Moderate right hydronephrosis secondary to 2 adjacent 3 millimeter calculi in the dis reginald right ureter. Bilateral staghorn renal calculi. Findings called to Corina Monahan of the emergency department. RADIATION DOSE DELIVERED: Total DLP DATA REPOSITORY: All CT scans at this facility are submitted to the National Radiology Data Registry (NRDR) Dose Index Registry (DIR) with the [employer] ([employer]). RADIATION OPTIMIZATION: All CT scans at this facility use at least one of these dose optimization te chniques: automated exposure control; mA and/or kV adjustment per patient size (includes targeted exa ms where dose is matched to clinical indication); or iterative reconstruction.
[2023-04-02] MEDS: ACETAMINOPHEN 1,000 MG/100 ML BTL 400 MG IVPB ×2 (10:27→20:31)
[2023-04-02 10:32] LABS: BE (Venous) 7 mmol/L (-2-3); HCO3 (Venous) 30 mmol/L (23-28); O2 Sat (Venous) 77 %; TCO2 (Venous) 28 mmol/L (24-29); pCO2 (Venous) 39 mmHg (41-51); pO2 (Venous) 39 mmHg
[2023-04-02 10:33] LABS: Lactate 1.4 mmol/L (0.6-1.4)
[2023-04-02 10:38] LABS: Abs Immature Grans 0.12 10^3/uL (0.0-0.06); Absolute Basophil Count 0.06 10^3/uL (0.0-0.2); Absolute Monocyte Count 0.36 10^3/uL (0.1-0.8); Basophils % 0.4; Eosinophils % 0.1; HCT 32.3 % (36.0-46.0); HGB 10.6 g/dL (11.2-15.7); Immature Grans % 0.7; MCH 27.3 pg (27.0-33.0); MCHC 32.8 % (32.0-36.0); MCV 83 fL (80-95); Monocytes % 2.2; Neutrophils % 95.6; Platelet Count 216 10^3/uL (130-400); RBC 3.88 10^6/uL (3.93-5.22); RDW 14.7 % (11.7-14.6); RDW-SD 44.8 fL
[2023-04-02 10:42] LABS: Absolute Eosinophil Count 0.02 10^3/uL (0.0-0.7); Absolute Lymphocyte Count 0.16 10^3/uL (1.2-3.4); Absolute Neutrophil Count 15.49 10^3/uL (1.2-6.7)
[2023-04-02] MEDS: Lactated Ringers 1,000 ML 125 ML IV ×2 (10:44→21:08)
[2023-04-02 10:48] LABS: INR 1.3 (0.9-1.1); Prothrombin Time 12.5 sec (9.1-11.1)
[2023-04-02 10:49] LABS: Bilirubin Negative (Negative); Blood Large (Negative); Clarity Cloudy (Clear); Glucose Negative (Negative); Ketones Negative (Negative); Leukocyte Esterase Large (Negative); Nitrite Negative (Negative); Specific Gravity 1.015 (1.005-1.025); Urobilinogen 0.2 mg/dL (Up to 0.2)
[2023-04-02 10:56] LABS: Bacteria Rare HPF (Negative); C & S Indicated? Yes; Casts 0-2 Hyaline LPF (Negative); Crystals Negative HPF (Negative); Epithelial Cells Rare HPF (Negative); Mucus Negative (Negative); RBC 20-50 HPF (0-2); WBC >50 HPF (0-5)
[2023-04-02 10:56] LABS: Troponin I < 50 ng/L (<or=60)
[2023-04-02 10:58] LABS: ALT 24 U/L (14-59); AST 36 U/L (15-37); Albumin 2.7 g/dL (3.4-5.0); Alkaline Phosphatase 226 U/L (46-116); Anion Gap 9.5 mmol/L (3-11); BUN 31 mg/dL (7-18); Bilirubin, Total 0.9 mg/dL (0.2-1.0); CO2 28.5 mmol/L (21.0-32.0); CREATININE 2.3 mg/dL (0.55-1.02); Calcium 9.8 mg/dL (8.5-10.1); Chloride 93 mmol/L (98-107); Estimated GFR 21.36 (mL/min/1.73m2); Glucose 230 mg/dL (74-106); Magnesium 1.7 mg/dL (1.8-2.4); Potassium 3.6 mmol/L (3.5-5.1); Sodium 131 mmol/L (136-145)
[2023-04-02 11:09] LABS: Procalcitonin 1.4 ng/mL
[2023-04-02 11:16] LABS: COVID-19 PCR Negative (Negative); Influenza A PCR Negative (Negative); Influenza B PCR Negative (Negative); RSV PCR Negative (Negative)
[2023-04-02 11:17] LABS: Source Nasopharynx
[2023-04-02] MEDS: cefTRIAXone 2 GM/50 ML BAG IVPB (11:43)
--- NOTE | 2023-04-02 13:45 | W.UROLOGYCON ---
Date of service: 04/02/23 Time of Service: 13:45 Assessment and Plan Assessment and plan (1) Urinary tract infection in elderly patient: Status: Acute (2) Ureteral stone with hydronephrosis: Status: Acute (3) Staghorn kidney stones: Status: Acute Assessment and plan: With her urinary tract infection, possible sepsis and right hydronephrosis, there is indication for an urgent placement of a ureteral stent to drain her right-sided hydronephrosis. We do not attempt to treat the obstructing ureteral stones at this time but can consider treatment once her infection is under control. The right ureteral stones certainly could be treated ureteroscopically. The large staghorn stones will be a much bigger challenge. Staghorn stones may have a struvite composition and can be associated with Proteus infections and sepsis. The recommended treatment for staghorn stones is bilateral percutaneous nephrolithotomy. We are not able to provide this type of service here at our [facility], so if the patient is interested in pursuing such a treatment, she would need to ultimately be referred to a tertiary care center that has interventional radiology services. Such a referral can be made as an outpatient after her acute infection has been treated. History of Present Illness History of Present Illness Chief Complaint: Ureteral stone with sepsis Narrative: This is a 78-year-old woman who has a history of recurrent Proteus urinary tract infections. She is not aware of any history of kidney stones or previous renal imaging. She tells me she has been feeling poorly for the past month or so. She was brought to the emergency department today with fevers and chills. She denies any flank pain. Her urinalysis is suspicious for a urinary tract infection and urine cultures have been sent. Her renal function has been worsening with a serum creatinine over 2. A CT scan demonstrates bilateral staghorn calculi with right-sided hydronephrosis due to obstructing right ureteral stones. She was started on ceftriaxone and blood and urine cultures have been obtained. She will be admitted for IV antibiotics. I have been asked to see her for possible stenting of her hydronephrotic kidney. Review of Systems Narrative: Documented fevers with chills No vision change or dysphasia Diabetes. Hypothyroidism. No increased sputum production or hemoptysis No chest pain or palpitations Recent endoscopy for evaluation of emesis. No hepatitis, ulcers, jaundice No seizures or strokes On anticoagulants. Hx anemia. Arthralgia. No gout PFSH All Active Problems (Updated 04/02/23 @ 13:53 by Jim Julio MD) Staghorn kidney stones (Acute) Ureteral stone with hydronephrosis (Acute) Urinary tract infection in elderly patient (Acute) Fall (Acute) Hyponatremia (Acute) Anemia (Chronic) Kidney disease (Acute) Murmur, cardiac (Acute) Emesis (Acute) Alzheimers disease (Chronic) Localized edema (Acute) Nail dystrophy (Acute) Vulvar abscess (Acute) Bilateral cellulitis of lower leg (Acute) Primary osteoarthritis of right knee (Acute) Injected: 08/04/21; 09/01/2020; 04/01/2019 Primary osteoarthritis of left knee (Acute) Injected: 08/04/21; 09/01/2020; 04/01/2019 Right knee pain (Acute) After discussing risks and benefits I injected Selin's right knee with 80 mg Depo-Medrol. She tolerated the procedure well. She knows that it may initially feel better and then worse. It will take about 10 days to know if this is helpful. If not improved will consider orthopedic consult Fracture of humerus, distal, left, closed (Acute) Hypothyroidism (Acute 11/26/16) Mild cognitive impairment (Acute 12/28/15) Sigmoid diverticulitis (Acute 06/07/17) Stenosis of cervical spine with myelopathy (Acute 12/28/15) Medical History (Updated 04/02/23 @ 13:53 by Jim Julio MD) Functional urinary incontinence Hydrocephalus Obesity (BMI 30-39.9) Osteoarthritis of knee Lactose intolerance Hypothyroidism Hyperlipidemia Chronic fatigue, unspecified Other amnesia Surgical History (Updated 03/07/23 @ 07:57 by Cortney Tipton) History of esophagogastroduodenoscopy (~02/2023) History of laminectomy Colonoscopy - MAC (06/07/17) Social History Smoking/Tobacco Use Status: Never Smoking risk assessment performed?: Yes Alcohol Intake: former Drug use: Never Substance use type: does not use Housing: retirement Current gender identity: female Exam Narrative Exam Narrative: She appears acutely ill Her vital signs are documented elsewhere in the chart Her chest wall motion is normal. She does not appear short of breath at rest. Her abdomen is obese but soft with no mass She is awake and alert I reviewed her CT scan on the PACS system. She did does have right hydronephrosis with obstructing ureteral stones in the pelvis. There are very large bilateral staghorn calculi in the kidneys. We reviewed her lab work. Her previous urine cultures grew Proteus which was sensitive to ceftriaxone She has an elevated white blood count with a left shift Results Last Vital Signs Temp 38.3 C H 04/02/23 10:05 Pulse 106 H 04/02/23 12:31 Resp 26 H 04/02/23 12:40 BP 94/58 L 04/02/23 12:31 Pulse Ox 98 04/02/23 12:40 Labs 04/02/23 10:15 04/02/23 10:23 Labs: Laboratory Results - last 24 hr 04/02/23 04/02/23 04/02/23 09:55 10:15 10:23 WBC 16.20 H RBC 3.88 L Hgb 10.6 L Hct 32.3 L MCV 83 MCH 27.3 MCHC 32.8 RDW 14.7 H Plt Count 216 MPV 11.0 Immature Gran % 0.7 Neutrophils % 95.6 Lymphocytes % 1.0 Monocytes % 2.2 Eosinophils % 0.1 Basophils % 0.4 Nucleated RBC % 0.0 Absolute Neutrophils 15.49 H Absolute Lymphocytes 0.16 L Absolute Monocytes 0.36 Absolute Eosinophils 0.02 Absolute Basophils 0.06 PT 12.5 H INR 1.3 H VBG pH 7.50 H VBG pCO2 39 L VBG pO2 39 VBG HCO3 30 H VBG Total CO2 28 VBG O2 Saturation 77 VBG Base Excess 7 H VBG Lactate 1.4 Sodium 131 L Potassium 3.6 Chloride 93 L Carbon Dioxide 28.5 Anion Gap 9.5 BUN 31 H Creatinine 2.3 H Est GFR (CKD-EPI 2020) 21.36 Glucose 230 H Calcium 9.8 Magnesium 1.7 L Total Bilirubin 0.9 AST 36 ALT 24 Alkaline Phosphatase 226 H Troponin I < 50 Total Protein 8.0 Albumin 2.7 L Procalcitonin 1.4 Urine Color Urine Clarity Urine pH Ur Specific [place] Urine Protein Urine Ketones Urine Blood Urine Nitrite Urine Bilirubin Urine Urobilinogen Ur Leukocyte Esterase Urine RBC Urine WBC Ur Epithelial Cells Urine Crystals Urine Bacteria Urine Casts Urine Mucus Ur Culture Indicated? Urine Glucose COVID-19 Source Cancelled SARS-CoV-2 (PCR) Cancelled Influenza Type A (PCR) Influenza Type B (PCR) RSV (PCR) Patient ABO/Rh O Positive Antibody Screen NEGATIVE 04/02/23 04/02/23 04/02/23 10:25 10:40 12:59 WBC RBC Hgb Hct MCV MCH MCHC RDW Plt Count MPV Immature Gran % Neutrophils % Lymphocytes % Monocytes % Eosinophils % Basophils % Nucleated RBC % Absolute Neutrophils Absolute Lymphocytes Absolute Monocytes Absolute Eosinophils Absolute Basophils PT INR VBG pH VBG pCO2 VBG pO2 VBG HCO3 VBG Total CO2 VBG O2 Saturation VBG Base Excess VBG Lactate Sodium Potassium Chloride Carbon Dioxide Anion Gap BUN Creatinine Est GFR (CKD-EPI 2020) Glucose Calcium Magnesium Total Bilirubin AST ALT Alkaline Phosphatase Troponin I Cancelled Total Protein Albumin Procalcitonin Urine Color Yellow Urine Clarity Cloudy Urine pH 7.0 Ur Specific [place] 1.015 Urine Protein 100 H Urine Ketones Negative Urine Blood Large H Urine Nitrite Negative Urine Bilirubin Negative Urine Urobilinogen 0.2 Ur Leukocyte Esterase Large H Urine RBC 20-50 H Urine WBC >50 H Ur Epithelial Cells Rare Urine Crystals Negative Urine Bacteria Rare Urine Casts 0-2 Hyaline Urine Mucus Negative Ur Culture Indicated? Yes Urine Glucose Negative COVID-19 Source Nasopharynx SARS-CoV-2 (PCR) Negative Influenza Type A (PCR) Negative Influenza Type B (PCR) Negative RSV (PCR) Negative Patient ABO/Rh Antibody Screen
--- NOTE | 2023-04-02 13:54 | ANES.PREOP_ITS ---
General Info Date of Service Date Performed: 04/02/23 Height: 6 ft 2 in (From previous hospital visit) Weight: 104.326 kg Body Mass Index (BMI): 29.5 Surgical Procedure: Operation Date: 04/02/23 14:10 Proposed Procedure Side Surgeon p Cystoscopy/Retrograde/Stent Placement Right Jim Julio MD Meds Allergies and Home Medications Allergies Allergy/AdvReac Type Severity Reaction Status Date / Time erythromycin base Allergy Unknown Verified 04/02/23 10:12 ibuprofen [From Motrin] Allergy Unknown Verified 04/02/23 10:12 lactose AdvReac Unknown Intolerance Unverified 04/02/23 10:12 opium tincture AdvReac Unknown Mental Unverified 04/02/23 10:12 Status Changes SEASONAL ALLERGIES Allergy Mild Uncoded 04/02/23 10:12 Home Medication Medication Instructions Recorded blood-glucose meter (Contour Next 08/23/15 USB Meter) lancets 28 gauge #100 ea 08/23/15 multivitamin-ferrous 1 tab-cap PO DAILY 10/13/15 fumarate-folic acid 18 mg-400 mcg tablet (Centrum Complete) apixaban 5 mg tablet (Eliquis) 5 mg PO BID #60 tabs 03/21/17 lactase 9,000 unit tablet (Lactaid 9,000 unit PO TID 06/09/18 Fast Act) sulfasalazine 500 mg tablet 500 mg PO BID 06/09/18 fluticasone propionate 50 1 spray intranasal BID 04/01/19 mcg/actuation nasal spray,suspension (Flonase Allergy Relief) glucosamine sulfate 500 mg capsule 500 mg PO BID 04/01/19 (Synovacin) aspirin 81 mg tablet,delayed 81 mg PO DAILY 07/11/19 release (Aspir-) atorvastatin 40 mg tablet 40 mg PO QPM 07/11/19 vitamin B complex 1 tab PO DAILY 07/11/19 donepezil 10 mg tablet 10 mg PO QHS 08/04/21 furosemide 20 mg tablet 60 mg PO BID 08/04/21 insulin aspart U-100 100 unit/mL 5 unit subcut TID 08/04/21 (3 mL) subcutaneous pen (Novolog FlexPen U-100 Insulin aspart) levothyroxine 175 mcg tablet 175 mcg PO DAILY 08/04/21 acetaminophen 650 mg 650 mg PO Q8H PRN 06/14/22 tablet,extended release albuterol sulfate 90 mcg/actuation 2 puff inhalation TID 06/14/22 aerosol inhaler ipratropium 20 mcg-albuterol 100 1 puff inhalation Q6H 06/14/22 mcg/actuation mist for inhalation (Combivent Respimat) potassium chloride 20 mEq 20 meq PO DAILY 06/14/22 tablet,extended release torsemide 20 mg tablet 80 mg PO DAILY 06/14/22 dulaglutide 3 mg/0.5 mL 3 mg subcut QWEEK 09/13/22 subcutaneous pen injector (Trulicity) insulin glargine 100 unit/mL (3 See Rx Instructions subcut QAM 09/13/22 mL) subcutaneous pen (Lantus Solostar U-100 Insulin) magnesium gluconate 12.5 mg 500 mg PO BID 02/19/23 magnesium (250 mg) tablet metoprolol succinate 25 mg 12.5 mg PO BID 02/19/23 tablet,extended release 24 hr omeprazole 20 mg capsule,delayed 20 mg PO DAILY 02/19/23 release ondansetron HCl 4 mg tablet 4 mg PO Q6H 04/02/23 Current Visit Medications: Current Medications Generic Name Dose Route Start Last Admin Trade Name Freq PRN Reason Stop Dose Admin Acetaminophen 1,000 mg in 100 mls @ 400 mls/hr 04/02/23 10:12 04/02/23 10:44 Ofirmev IVPB Infused Q8H PRN PRN Infusion Ringer's Solution 1,000 mls @ 125 mls/hr 04/02/23 10:15 04/02/23 12:38 IV 125 mls/hr INFUSION PHOEBE Infusion IV Miscellaneous Supplies 2 each 04/02/23 10:00 Iv Access IV DIRECTED PHOEBE Sodium Chloride 0 ml 04/02/23 09:55 Normal Saline Flush 10 Ml Syr IVP PRN PRN PFSH Active Problems Active Problems: Problem Status Onset Code Staghorn kidney stones N20.0 Ureteral stone with hydronephrosis N13.2 Urinary tract infection in elderly patient N39.0 Fall W19.XXXA Hyponatremia E87.1 Anemia D64.9 Kidney disease N28.9 Murmur, cardiac R01.1 Emesis R11.10 Alzheimers disease G30.9, F02.80 Localized edema R60.0 Nail dystrophy L60.3 Vulvar abscess N76.4 Bilateral cellulitis of lower leg L03.116, L03.115 Primary osteoarthritis of right knee M17.11 Primary osteoarthritis of left knee M17.12 Right knee pain M25.561 Fracture of humerus, distal, left, closed S42.402A Hypothyroidism 11/26/16 E03.9 Mild cognitive impairment 12/28/15 G31.84 Sigmoid diverticulitis 06/07/17 K57.32 Stenosis of cervical spine with myelopathy 12/28/15 M48.02, G99.2 Medical History Medical History (Updated 04/02/23 @ 13:53 by Jim Julio MD) Functional urinary incontinence Hydrocephalus Obesity (BMI 30-39.9) Osteoarthritis of knee Lactose intolerance Hypothyroidism Hyperlipidemia Chronic fatigue, unspecified Other amnesia Surgical History Surgical History (Updated 03/07/23 @ 07:57 by Cortney Tipton) History of esophagogastroduodenoscopy (~02/2023) History of laminectomy Colonoscopy - MAC (06/07/17) Tobacco Smoking/Tobacco Use Status: Never Alcohol Alcohol Intake: former Substance Use Substance use: Never Substance use type: does not use Vital Signs and Lab Results Vital Signs Most Recent Vital Signs in EMR: Most Recent Vital Signs Temp Pulse Resp BP Pulse Ox 38.3 C H 106 H 26 H 94/58 L 98 04/02/23 10:05 04/02/23 12:31 04/02/23 12:40 04/02/23 12:31 04/02/23 12:40 Point of Care Results Point of Care Results: Finger Stick Blood Glucose 234 04/02/23 10:10 Lab Results 04/02/23 10:15 04/02/23 10:23 Blood Type / Crossmatch: 2 Patient ABO/Rh O Positive 04/02/23 Antibody Screen NEGATIVE 04/02/23 Complete Blood Count: 2 White Blood Count 16.20 10^3/uL (4.4-10.8) H 04/02/23 10:15 Red Blood Count 3.88 10^6/uL (3.93-5.22) L 04/02/23 10:15 Hemoglobin 10.6 g/dL (11.2-15.7) L 04/02/23 10:15 Hematocrit 32.3 % (36.0-46.0) L 04/02/23 10:15 Platelet Count 216 10^3/uL (130-400) 04/02/23 10:15 Venous Blood Lactate 1.4 mmol/L (0.6-1.4) 04/02/23 10:23 Complete Metabolic Panel: 2 Sodium 131 mmol/L (136-145) L 04/02/23 10:23 Potassium 3.6 mmol/L (3.5-5.1) 04/02/23 10:23 Chloride 93 mmol/L (98-107) L 04/02/23 10:23 Carbon Dioxide 28.5 mmol/L (21.0-32.0) 04/02/23 10:23 BUN 31 mg/dL (7-18) H 04/02/23 10:23 Creatinine 2.3 mg/dL (0.55-1.02) H 04/02/23 10:23 Est GFR (CKD-EPI 2020) 21.36 (mL/min/1.73m2) 04/02/23 10:23 Magnesium 1.7 mg/dL (1.8-2.4) L 04/02/23 10:23 Calcium 9.8 mg/dL (8.5-10.1) 04/02/23 10:23 Albumin 2.7 g/dL (3.4-5.0) L 04/02/23 10:23 Glucose 230 mg/dL (74-106) H 04/02/23 10:23 Liver Function Panel: 2 Alanine Aminotransferase (ALT/SGPT) 24 U/L (14-59) 04/02/23 10: 23 Aspartate Amino Transf (AST/SGOT) 36 U/L (15-37) 04/02/23 10:23 Coagulation Panel: 2 INR International Normalized Ratio 1.3 (0.9-1.1) H 04/02/23 10 :15 Prothrombin Time 12.5 sec (9.1-11.1) H 04/02/23 10:15 Cardiac Panel: 2 Troponin I < 50 ng/L (<or=60) 04/02/23 Arterial Blood Gas: 2 No Data to Display Venous Blood Gas: 2 Venous Blood pH 7.50 (7.31-7.41) H 04/02/23 10:23 Venous Blood Partial Pressure O2 39 mmHg 04/02/23 10:23 Venous Blood Partial Pressure CO2 39 mmHg (41-51) L 04/02/23 10 :23 Venous Blood Oxygen Saturation 77 % 04/02/23 10:23 Venous Blood HCO3 30 mmol/L (23-28) H 04/02/23 10:23 Venous Blood Base Excess 7 mmol/L (-2-3) H 04/02/23 10:23 Venous Blood Total Carbon Dioxide 28 mmol/L (24-29) 04/02/23 10 :23 Pancreas Panel: 2 No Data to Display Thyroid Panel: 2 No Data to Display Infectious Disease: 2 Coronavirus (COVID-19)(PCR) Negative (Negative) 04/02/23 10:25 Coronavirus 2019 Source Nasopharynx 04/02/23 10:25 Influenza Virus Type A (PCR) Negative (Negative) 04/02/23 10:2 5 Influenza Virus Type B (PCR) Negative (Negative) 04/02/23 10:2 5 Respiratory Syncytial Virus (PCR) Negative (Negative) 04/02/23 10:25 Blood Cultures: 2 No Data to Display Toxicology Panel: 2 No Data to Display Imaging and Studies Imaging and Studies Study information below may be from another EMR and interpreted by another provider. Please see original notes in EMR for more complete details. EKG Summary: 04/02/2023: Exam: Resting ECG Reason for Exam: tachycardia Patient Location: E HR:123 bpm ECG Measurements Heart Rate 123 [place] [id number] P [id number] QRSd 96 QRS -6 QT 307 T152 QTc 439 Conclusion Atrial fibrillation...V-rate 102-146, irreg A-activity Probable LVH with secondary repol abnrm...multiple LVH criteria Inferior infarct, old...Q >35mS, II III aVF Atrial fibrillaiton with rapid ventricular response, LVH, inferior Q wave. No prior for comparrison. WD Echocardiogram Summary: 04/05: LVEF 60-65%, thickend vent septum, moderate MR, mod-severe TR, PAS 40-50 mmhg. Anesthesia Assessment and Plan Anesthesia History Personal History: Unknown Anesthesia History Family History: Family History Unknown Exercise Tolerance Exercise Tolerance: Metabolic Equivalents<4 Pertinent Negatives Pertinent Negatives: No Symptoms of GERD, No Major Cardiovascular Symptoms or Complaints and No Major Pulmonary Symptoms or Complaints Cardiac & Pulmonary Exam Cardiac Exam: Normal S1/S2 Heart Sounds Pulmonary Exam: Clear Bilateral Breath Sounds and No cough or Cold Implantable Cardiac Device Does patient have a Pacemaker or an ICD?: No Airway Exam Known Difficult Airway: No Mallampati Class: 3 Mouth Opening: Normal (> 3cm) Thyromental Distance: Greater than 3 cm Neck Range of Motion: Full ROM and Limited ROM Neck Circumference: Thick Teeth Condition: Generalized Poor Dentition ASA Classification ASA Score: ASA 4 Emergency Case?: Yes NPO Status NPO Status: Unable to Assess (Patient does not recall when she last ate, but likely breakfast.) Anesthesia Plan Resuscitation Status: DNR Fully Suspended During Perioperative Period Anesthesia Technique: General Anesthesia Airway Planned: Endotracheal Tube Monitors Used: Standard Monitors and Arterial Line Preoperative Comments:: PIV x2, plan for RSI ETT, arterial line as indicated, ICU admission
--- NOTE | 2023-04-02 14:00 | DI.RAD_ITS ---
Exam(s) XR RETROGRADE IN OR EXAM: XR RETROGRADE IN OR CLINICAL HISTORY: right kidney stone. TECHNIQUE: Fluoroscopy was provided for the referring physician for guidance with performing retrogr lavern procedure. COMPARISON: CT CT CHEST/ABD/PEL WO from 04/02/2023 FINDINGS: Please see procedure note for details. Fluoro time: 44 seconds RADIATION DOSE DELIVERED: hermann Peña=16.05 mGy
--- NOTE | 2023-04-02 14:37 | W.PM.HP.N ---
Date of service: 04/02/23 Time of Service: 16:46 Assessment and Plan Assessment and plan (1) Severe sepsis: Status: Acute Assessment and plan: -Patient with severe sepsis criteria with an elevated 100 greater than 100, white blood cell count of 16, and a source of infection being UTI/obstructive ureteral stones with staghorn calculi -Patient was started on ceftriaxone, will transition to cefepime as patient looks worse postoperatively -Follow-up a.m. CBC -Status post right ureteral stent as noted below -Follow-up urine and blood culture results (2) Ureteral stone with hydronephrosis: Status: Acute Assessment and plan: - Secondary to obstructing right ureteral stone and bilateral staghorn calculi -Status post right ureteral stent placed by urology earlier today -Appreciate urology involvement (3) Staghorn kidney stones: Status: Acute Assessment and plan: - As noted on CT abdomen pelvis along with right obstructing ureteral stone now with stent -We will need to discuss with patient and family decide course of treatment going forward regarding removal of staghorn (4) Atrial fibrillation with RVR: Status: Acute Assessment and plan: - Patient has a history of atrial fibrillation on Eliquis and on metoprolol -However, postoperatively she has been found to be in A-fib RVR -Her heart rate was up to 160 and improved to 130-140 after total of 10 mg IV metoprolol -However, given the patient remains tachycardic and her blood pressure significantly improved postoperatively she will be given a 15 mg IV bolus of diltiazem followed by being placed on a diltiazem drip -Goal heart rate less than 100 without ambulation -Continue home Eliquis (5) Insulin dependent type 2 diabetes mellitus: Status: Acute Assessment and plan: - Normally on long-acting and sliding scale insulin -Patient currently n.p.o. and with some mild worsening of mental status and not tolerating p.o. at this time -We will monitor blood glucose and give sliding scale as needed (6) Alzheimer disease: Status: Chronic Assessment and plan: - Continue home donepezil History of Present Illness History of Present Illness Chief Complaint: Nausea, vomiting Narrative: 78-year-old female history of IDDM, A-fib on Eliquis, Alzheimer's, comes from the [facility] presents emergency department nausea and vomiting. Patient states that she had nausea and vomiting denies any blood in her vomit she also denies any diarrhea, abdominal pain stable states that her symptoms started earlier in the morning. She denies any chest pain, shortness of breath, fevers, lightheadedness or dizziness. In the emergency department the patient was noted to be in no acute distress but appeared pale. Her initial vital signs in the ED showed temperature of 101.0 ?F, heart rate of 130, blood pressure of 147/86, respiratory rate of 25, and oxygen saturation 99% on room air. CBC showed a white blood cell count of 16.2, BMP showed a sodium 131, BUN of 31, creatinine of 2.3, and ABG showing a pH of 7.5, CO2 of 39, bicarb of 30 with a lactic of 1.4, and urinalysis was highly suggestive of a urinary tract infection. However, given the patient's history of staghorn calculi a CT chest abdomen pelvis was ordered which showed moderate right hydronephrosis secondary to 2 adjacent 3 mm calculi in the right distal ureter with bilateral staghorn renal calculi. Emergency room PA reached out to urology who recommend the patient be brought to the operating room for right renal stent placement. She is started on ceftriaxone and emergency room PA paged hospitalist for admission for patient requiring right-sided renal stent secondary to obstructing ureteral stone and staghorn calculi. PFSH All Active Problems (Updated 04/02/23 @ 17:06 by Albert Brunner MD) Severe sepsis (Acute) Atrial fibrillation with RVR (Acute) Alzheimer disease (Chronic) Insulin dependent type 2 diabetes mellitus (Acute) Staghorn kidney stones (Acute) Ureteral stone with hydronephrosis (Acute) Urinary tract infection in elderly patient (Acute) Fall (Acute) Hyponatremia (Acute) Anemia (Chronic) Kidney disease (Acute) Murmur, cardiac (Acute) Emesis (Acute) Alzheimers disease (Chronic) Localized edema (Acute) Nail dystrophy (Acute) Vulvar abscess (Acute) Bilateral cellulitis of lower leg (Acute) Primary osteoarthritis of right knee (Acute) Injected: 08/04/21; 09/01/2020; 04/01/2019 Primary osteoarthritis of left knee (Acute) Injected: 08/04/21; 09/01/2020; 04/01/2019 Right knee pain (Acute) After discussing risks and benefits I injected Selin's right knee with 80 mg Depo-Medrol. She tolerated the procedure well. She knows that it may initially feel better and then worse. It will take about 10 days to know if this is helpful. If not improved will consider orthopedic consult Fracture of humerus, distal, left, closed (Acute) Hypothyroidism (Acute 11/26/16) Mild cognitive impairment (Acute 12/28/15) Sigmoid diverticulitis (Acute 06/07/17) Stenosis of cervical spine with myelopathy (Acute 12/28/15) Medical History Functional urinary incontinence Hydrocephalus Obesity (BMI 30-39.9) Osteoarthritis of knee Lactose intolerance Hypothyroidism Hyperlipidemia Chronic fatigue, unspecified Other amnesia Surgical History History of esophagogastroduodenoscopy (~02/2023) History of laminectomy Colonoscopy - MAC (06/07/17) Social History Smoking/Tobacco Use Status: Never Smoking risk assessment performed?: Yes Alcohol Intake: former Drug use: Never Substance use type: does not use Housing: half-way Current gender identity: female Meds Allergies and Home Medications Allergies Allergy/AdvReac Type Severity Reaction Status Date / Time erythromycin base Allergy Unknown Verified 04/02/23 10:12 ibuprofen [From Motrin] Allergy Unknown Verified 04/02/23 10:12 lactose AdvReac Unknown Intolerance Unverified 04/02/23 10:12 opium tincture AdvReac Unknown Mental Unverified 04/02/23 10:12 Status Changes SEASONAL ALLERGIES Allergy Mild Uncoded 04/02/23 10:12 Home Medications Medication Instructions Recorded Confirmed Type blood-glucose meter (Contour Next 08/23/15 03/06/23 History USB Meter) lancets 28 gauge #100 ea 08/23/15 02/19/23 History multivitamin-ferrous 1 tab-cap PO DAILY 10/13/15 04/02/23 History fumarate-folic acid 18 mg-400 mcg tablet (Centrum Complete) apixaban 5 mg tablet (Eliquis) 5 mg PO BID #60 tabs 03/21/17 04/02/23 Rx lactase 9,000 unit tablet (Lactaid 9,000 unit PO TID 06/09/18 04/02/23 History Fast Act) sulfasalazine 500 mg tablet 500 mg PO BID 06/09/18 04/02/23 History fluticasone propionate 50 1 spray intranasal BID 04/01/19 04/02/23 History mcg/actuation nasal spray,suspension (Flonase Allergy Relief) glucosamine sulfate 500 mg capsule 500 mg PO BID 04/01/19 03/06/23 History (Synovacin) aspirin 81 mg tablet,delayed 81 mg PO DAILY 07/11/19 04/02/23 History release (Aspir-) atorvastatin 40 mg tablet 40 mg PO QPM 07/11/19 04/02/23 History vitamin B complex 1 tab PO DAILY 07/11/19 03/06/23 History donepezil 10 mg tablet 10 mg PO QHS 08/04/21 04/02/23 History furosemide 20 mg tablet 60 mg PO BID 08/04/21 03/06/23 History insulin aspart U-100 100 unit/mL 5 unit subcut TID 08/04/21 03/06/23 History (3 mL) subcutaneous pen (Novolog FlexPen U-100 Insulin aspart) levothyroxine 175 mcg tablet 175 mcg PO DAILY 08/04/21 04/02/23 History acetaminophen 650 mg 650 mg PO Q8H PRN 06/14/22 04/02/23 History tablet,extended release albuterol sulfate 90 mcg/actuation 2 puff inhalation TID 06/14/22 04/02/23 History aerosol inhaler ipratropium 20 mcg-albuterol 100 1 puff inhalation Q6H 06/14/22 03/06/23 History mcg/actuation mist for inhalation (Combivent Respimat) potassium chloride 20 mEq 20 meq PO DAILY 06/14/22 04/02/23 History tablet,extended release torsemide 20 mg tablet 80 mg PO DAILY 06/14/22 04/02/23 History dulaglutide 3 mg/0.5 mL 3 mg subcut QWEEK 09/13/22 04/02/23 History subcutaneous pen injector (Trulicity) insulin glargine 100 unit/mL (3 See Rx Instructions subcut QAM 09/13/22 03/06/23 History mL) subcutaneous pen (Lantus Solostar U-100 Insulin) magnesium gluconate 12.5 mg 500 mg PO BID 02/19/23 04/02/23 History magnesium (250 mg) tablet metoprolol succinate 25 mg 12.5 mg PO BID 02/19/23 04/02/23 History tablet,extended release 24 hr omeprazole 20 mg capsule,delayed 20 mg PO DAILY 02/19/23 04/02/23 History release ondansetron HCl 4 mg tablet 4 mg PO Q6H 04/02/23 04/02/23 History Exam Narrative Exam Narrative: Acutely ill-appearing older female laying in bed and mild distress due to feeling cold and mild tachycardia, awake, alert, oriented to person and place but not situation, heart irregularly irregular with rates in the 140s, lungs clear to auscultation bilaterally, abdomen soft, nontender nondistended, right flank surgical wound bandaged without signs of bleeding or drainage Results Labs 04/02/23 10:15 04/02/23 10:23 Labs: Laboratory Results - last 24 hr 04/02/23 04/02/23 04/02/23 09:55 10:15 10:23 WBC 16.20 H RBC 3.88 L Hgb 10.6 L Hct 32.3 L MCV 83 MCH 27.3 MCHC 32.8 RDW 14.7 H Plt Count 216 MPV 11.0 Immature Gran % 0.7 Neutrophils % 95.6 Lymphocytes % 1.0 Monocytes % 2.2 Eosinophils % 0.1 Basophils % 0.4 Nucleated RBC % 0.0 Absolute Neutrophils 15.49 H Absolute Lymphocytes 0.16 L Absolute Monocytes 0.36 Absolute Eosinophils 0.02 Absolute Basophils 0.06 PT 12.5 H INR 1.3 H VBG pH 7.50 H VBG pCO2 39 L VBG pO2 39 VBG HCO3 30 H VBG Total CO2 28 VBG O2 Saturation 77 VBG Base Excess 7 H VBG Lactate 1.4 Sodium 131 L Potassium 3.6 Chloride 93 L Carbon Dioxide 28.5 Anion Gap 9.5 BUN 31 H Creatinine 2.3 H Est GFR (CKD-EPI 2020) 21.36 Glucose 230 H Calcium 9.8 Magnesium 1.7 L Total Bilirubin 0.9 AST 36 ALT 24 Alkaline Phosphatase 226 H Troponin I < 50 Total Protein 8.0 Albumin 2.7 L Procalcitonin 1.4 Urine Color Urine Clarity Urine pH Ur Specific [place] Urine Protein Urine Ketones Urine Blood Urine Nitrite Urine Bilirubin Urine Urobilinogen Ur Leukocyte Esterase Urine RBC Urine WBC Ur Epithelial Cells Urine Crystals Urine Bacteria Urine Casts Urine Mucus Ur Culture Indicated? Urine Glucose COVID-19 Source Cancelled SARS-CoV-2 (PCR) Cancelled Influenza Type A (PCR) Influenza Type B (PCR) RSV (PCR) Patient ABO/Rh O Positive Antibody Screen NEGATIVE 04/02/23 04/02/23 04/02/23 10:25 10:40 12:59 WBC RBC Hgb Hct MCV MCH MCHC RDW Plt Count MPV Immature Gran % Neutrophils % Lymphocytes % Monocytes % Eosinophils % Basophils % Nucleated RBC % Absolute Neutrophils Absolute Lymphocytes Absolute Monocytes Absolute Eosinophils Absolute Basophils PT INR VBG pH VBG pCO2 VBG pO2 VBG HCO3 VBG Total CO2 VBG O2 Saturation VBG Base Excess VBG Lactate Sodium Potassium Chloride Carbon Dioxide Anion Gap BUN Creatinine Est GFR (CKD-EPI 2020) Glucose Calcium Magnesium Total Bilirubin AST ALT Alkaline Phosphatase Troponin I Cancelled Total Protein Albumin Procalcitonin Urine Color Yellow Urine Clarity Cloudy Urine pH 7.0 Ur Specific [place] 1.015 Urine Protein 100 H Urine Ketones Negative Urine Blood Large H Urine Nitrite Negative Urine Bilirubin Negative Urine Urobilinogen 0.2 Ur Leukocyte Esterase Large H Urine RBC 20-50 H Urine WBC >50 H Ur Epithelial Cells Rare Urine Crystals Negative Urine Bacteria Rare Urine Casts 0-2 Hyaline Urine Mucus Negative Ur Culture Indicated? Yes Urine Glucose Negative COVID-19 Source Nasopharynx SARS-CoV-2 (PCR) Negative Influenza Type A (PCR) Negative Influenza Type B (PCR) Negative RSV (PCR) Negative Patient ABO/Rh Antibody Screen Last Vital Signs Temp 101 F H 04/02/23 10:05 Pulse 97 H 04/02/23 14:01 Resp 17 04/02/23 14:01 BP 114/63 04/02/23 14:01 Pulse Ox 98 04/02/23 14:01 Time Spent Time spent with Patient: 55-74 minutes Time was spent: preparing to see the patient(eg.review tests), obtaining and/or reviewing separately otained hiistory, ordering medications,tests, procedures, referring, communicating with other health plant care worker, indepentently interpreting results, counseling the patient and care coordination
--- NOTE | 2023-04-02 14:48 | ED.GENADUL_ITS ---
Discharge Plan Disposition Patient Disposition: Admit to [facility] Condition: Serious Discharge Details Clinical Impression: Alzheimers disease, Anemia, Ureteral stone with hydronephrosis, Urinary tract infection in elderly patient, Staghorn kidney stones Attending Provider: Jim Julio Primary Care Provider: Janeth Rosas ED Provider: Corina Monahan Medical Decision Making Patient alert and oriented x2, at reported neurological baseline presents with nausea and vomiting per the rehabilitation center and EMS Blood sugar on arrival was within normal limits Patient with irregularly irregular rhythm, suspect atrial fibrillation, temp of 101.5, rate likely secondary to fever History of CHF on 80 of torsemide, will give fluids for likely sepsis but slowly at 125 an hour Blood cultures were obtained, FLUVID negative CT chest abdomen pelvis and head were ordered secondary to nausea vomiting and fever, CT head does not show evidence of acute abnormality but to staghorn calculi and an obstructive right stone noted with moderate hydro and infected urine, will need stent placement, case discussed with Dr. Julio, will place stent, patient appears to be competent to make decision although she does have a DPOA, DPOA was called but was unable to return call and patient was able to state that she would like intervention and stent placement, at time my assessment she was competent to make this decision Vitals have improved throughout this visit She received 2 g of ceftriaxone as she has prior Proteus urinalysis Case discussed with Dr. Brunner who will accept patient to the hospital service in the intensive care unit after surgery with Blessing Pike, patient's sister and DPOA to call back approximately [phone] and she does agree that stent is appropriate management at this time, we did talk about surgical intervention for staghorn calculi and she would like to talk to the urologist more about this decision prior to having any additional intervention but agreeable to stent and antibiotics at this time We will admit to the hospitalist service, reviewed patient's labs which show anemia is actually improved at time of reassessment creatinine has also improved for patient CT results were discussed with radiologist, Dr. Hernandez HPI General Date/Time Provider Initiated Documentation: 04/02/23 10:10 . HPI Narrative: This 78-year-old female presents with report nausea and vomiting this morning, history of diabetes, atrial fibrillation with reported tachycardia, Eliquis, in no acute distress but pale, states she feels nauseous, denies any known blood in vomitus. Denies any diarrhea. States her symptoms started this morning. Denies any chest pain or shortness of breath. Denies any real pain complaints at all did have a fall last week reportedly. Related Data Home Medications Medication Instructions Recorded Confirmed blood-glucose meter (Contour Next 08/23/15 03/06/23 USB Meter) lancets 28 gauge #100 ea 08/23/15 02/19/23 multivitamin-ferrous 1 tab-cap PO DAILY 10/13/15 04/02/23 fumarate-folic acid 18 mg-400 mcg tablet (Centrum Complete) apixaban 5 mg tablet (Eliquis) 5 mg PO BID #60 tabs 03/21/17 04/02/23 lactase 9,000 unit tablet (Lactaid 9,000 unit PO TID 06/09/18 04/02/23 Fast Act) sulfasalazine 500 mg tablet 500 mg PO BID 06/09/18 04/02/23 fluticasone propionate 50 1 spray intranasal BID 04/01/19 04/02/23 mcg/actuation nasal spray,suspension (Flonase Allergy Relief) glucosamine sulfate 500 mg capsule 500 mg PO BID 04/01/19 03/06/23 (Synovacin) aspirin 81 mg tablet,delayed 81 mg PO DAILY 07/11/19 04/02/23 release (Aspir-) atorvastatin 40 mg tablet 40 mg PO QPM 07/11/19 04/02/23 vitamin B complex 1 tab PO DAILY 07/11/19 03/06/23 donepezil 10 mg tablet 10 mg PO QHS 08/04/21 04/02/23 furosemide 20 mg tablet 60 mg PO BID 08/04/21 03/06/23 insulin aspart U-100 100 unit/mL 5 unit subcut TID 08/04/21 03/06/23 (3 mL) subcutaneous pen (Novolog FlexPen U-100 Insulin aspart) levothyroxine 175 mcg tablet 175 mcg PO DAILY 08/04/21 04/02/23 acetaminophen 650 mg 650 mg PO Q8H PRN 06/14/22 04/02/23 tablet,extended release albuterol sulfate 90 mcg/actuation 2 puff inhalation TID 06/14/22 04/02/23 aerosol inhaler ipratropium 20 mcg-albuterol 100 1 puff inhalation Q6H 06/14/22 03/06/23 mcg/actuation mist for inhalation (Combivent Respimat) potassium chloride 20 mEq 20 meq PO DAILY 06/14/22 04/02/23 tablet,extended release torsemide 20 mg tablet 80 mg PO DAILY 06/14/22 04/02/23 dulaglutide 3 mg/0.5 mL 3 mg subcut QWEEK 09/13/22 04/02/23 subcutaneous pen injector (Trulicity) insulin glargine 100 unit/mL (3 See Rx Instructions subcut QAM 09/13/22 03/06/23 mL) subcutaneous pen (Lantus Solostar U-100 Insulin) magnesium gluconate 12.5 mg 500 mg PO BID 02/19/23 04/02/23 magnesium (250 mg) tablet metoprolol succinate 25 mg 12.5 mg PO BID 02/19/23 04/02/23 tablet,extended release 24 hr omeprazole 20 mg capsule,delayed 20 mg PO DAILY 02/19/23 04/02/23 release ondansetron HCl 4 mg tablet 4 mg PO Q6H 04/02/23 04/02/23 Previous Rx's Medication Instructions Recorded apixaban 5 mg tablet (Eliquis) 5 mg PO BID #60 tabs 03/21/17 Allergies Allergy/AdvReac Type Severity Reaction Status Date / Time erythromycin base Allergy Unknown Verified 04/02/23 10:12 ibuprofen [From Motrin] Allergy Unknown Verified 04/02/23 10:12 lactose AdvReac Unknown Intolerance Unverified 04/02/23 10:12 opium tincture AdvReac Unknown Mental Unverified 04/02/23 10:12 Status Changes SEASONAL ALLERGIES Allergy Mild Uncoded 04/02/23 10:12 General Stated Complaint: Fever ANASTACIA: 3 PFSH All Active Problems (Updated 04/02/23 @ 15:30 by LINA Tan) Staghorn kidney stones (Acute) Ureteral stone with hydronephrosis (Acute) Urinary tract infection in elderly patient (Acute) Fall (Acute) Hyponatremia (Acute) Anemia (Chronic) Kidney disease (Acute) Murmur, cardiac (Acute) Emesis (Acute) Alzheimers disease (Chronic) Localized edema (Acute) Nail dystrophy (Acute) Vulvar abscess (Acute) Bilateral cellulitis of lower leg (Acute) Primary osteoarthritis of right knee (Acute) Injected: 08/04/21; 09/01/2020; 04/01/2019 Primary osteoarthritis of left knee (Acute) Injected: 08/04/21; 09/01/2020; 04/01/2019 Right knee pain (Acute) After discussing risks and benefits I injected Selin's right knee with 80 mg Depo-Medrol. She tolerated the procedure well. She knows that it may initially feel better and then worse. It will take about 10 days to know if this is helpful. If not improved will consider orthopedic consult Fracture of humerus, distal, left, closed (Acute) Hypothyroidism (Acute 11/26/16) Mild cognitive impairment (Acute 12/28/15) Sigmoid diverticulitis (Acute 06/07/17) Stenosis of cervical spine with myelopathy (Acute 12/28/15) Medical History (Updated 04/02/23 @ 15:30 by LINA Tan) Functional urinary incontinence Hydrocephalus Obesity (BMI 30-39.9) Osteoarthritis of knee Lactose intolerance Hypothyroidism Hyperlipidemia Chronic fatigue, unspecified Other amnesia Surgical History (Updated 03/07/23 @ 07:57 by Cortney Tipton) History of esophagogastroduodenoscopy (~02/2023) History of laminectomy Colonoscopy - MAC (06/07/17) Social History Smoking/Tobacco Use Status: Never Smoking risk assessment performed?: Yes Alcohol Intake: former Drug use: Never Substance use type: does not use Housing: custodial Current gender identity: female Course Vital Signs Vital signs: Vital Signs Temperature 38.3 C H 04/02/23 09:58 Pulse 130 H 04/02/23 09:58 Respiratory Rate 20 04/02/23 09:58 Blood Pressure 147/86 H 04/02/23 09:58 Pulse Oximetry 99 04/02/23 09:58 Temperature 38.3 C H 04/02/23 10:05 Temperature Source Tympanic 04/02/23 09:58 Pulse 97 H 04/02/23 14:01 Pulse 107 H 04/02/23 14:01 Respiratory Rate 17 04/02/23 14:01 Respiratory Effort Normal 04/02/23 10:05 Blood Pressure 114/63 04/02/23 14:01 Blood Pressure Mean 80 04/02/23 14:01 Blood Pressure Position Sitting 04/02/23 09:58 Pulse Oximetry 98 04/02/23 14:01 Oxygen Delivery Method Room Air 04/02/23 09:58 Oxygen Flow Rate 0 04/02/23 09:58 Lab/Test Results Lab/Test Results: 04/02/23 10:40 Urine - Reflex from Ua Urine Culture - Pending 04/02/23 10:15 Blood Blood Culture - Pending 04/02/23 10:23 Blood Blood Culture - Pending Laboratory Tests Range/Units 04/02/23 04/02/23 04/02/23 09:55 10:15 10:23 WBC (4.4-10.8) 10^3/uL 16.20 H RBC (3.93-5.22) 10^6/uL 3.88 L Hgb (11.2-15.7) g/dL 10.6 L Hct (36.0-46.0) % 32.3 L MCV (80-95) fL 83 MCH (27.0-33.0) pg 27.3 MCHC (32.0-36.0) % 32.8 RDW (11.7-14.6) % 14.7 H Plt Count (130-400) 10^3/uL 216 MPV (8.0-11.0) fL 11.0 Immature Gran % 0.7 Neutrophils % 95.6 Lymphocytes % 1.0 Monocytes % 2.2 Eosinophils % 0.1 Basophils % 0.4 Nucleated RBC % (0.0-0.3) % 0.0 Absolute Neutrophils (1.2-6.7) 10^3/uL 15.49 H Absolute Lymphocytes (1.2-3.4) 10^3/uL 0.16 L Absolute Monocytes (0.1-0.8) 10^3/uL 0.36 Absolute Eosinophils (0.0-0.7) 10^3/uL 0.02 Absolute Basophils (0.0-0.2) 10^3/uL 0.06 PT (9.1-11.1) sec 12.5 H INR (0.9-1.1) 1.3 H VBG pH (7.31-7.41) 7.50 H VBG pCO2 (41-51) mmHg 39 L VBG pO2 mmHg 39 VBG HCO3 (23-28) mmol/L 30 H VBG Total CO2 (24-29) mmol/L 28 VBG O2 Saturation % 77 VBG Base Excess (-2-3) mmol/L 7 H VBG Lactate (0.6-1.4) mmol/L 1.4 Sodium (136-145) mmol/L 131 L Potassium (3.5-5.1) mmol/L 3.6 Chloride (98-107) mmol/L 93 L Carbon Dioxide (21.0-32.0) mmol/L 28.5 Anion Gap (3-11) mmol/L 9.5 BUN (7-18) mg/dL 31 H Creatinine (0.55-1.02) mg/dL 2.3 H Est GFR (CKD-EPI 2020) (mL/min/1.73m2) 21.36 Glucose (74-106) mg/dL 230 H Calcium (8.5-10.1) mg/dL 9.8 Magnesium (1.8-2.4) mg/dL 1.7 L Total Bilirubin (0.2-1.0) mg/dL 0.9 AST (15-37) U/L 36 ALT (14-59) U/L 24 Alkaline Phosphatase (46-116) U/L 226 H Troponin I (<or=60) ng/L < 50 Total Protein (6.4-8.2) g/dL 8.0 Albumin (3.4-5.0) g/dL 2.7 L Procalcitonin ng/mL 1.4 Urine Color (Yellow) Urine Clarity (Clear) Urine pH (5-8) Ur Specific [place] (1.005-1.025) Urine Protein (Negative) mg/dL Urine Ketones (Negative) mg/dL Urine Blood (Negative) Urine Nitrite (Negative) Urine Bilirubin (Negative) Urine Urobilinogen (Up to 0.2) mg/dL Ur Leukocyte Esterase (Negative) Urine RBC (0-2) HPF Urine WBC (0-5) HPF Ur Epithelial Cells (Negative) HPF Urine Crystals (Negative) HPF Urine Bacteria (Negative) HPF Urine Casts (Negative) LPF Urine Mucus (Negative) Ur Culture Indicated? Urine Glucose (Negative) mg/dL COVID-19 Source Cancelled SARS-CoV-2 (PCR) Cancelled Influenza Type A (PCR) (Negative) Influenza Type B (PCR) (Negative) RSV (PCR) (Negative) Patient ABO/Rh O Positive Antibody Screen NEGATIVE Range/Units 04/02/23 04/02/23 04/02/23 10:25 10:40 12:59 WBC (4.4-10.8) 10^3/uL RBC (3.93-5.22) 10^6/uL Hgb (11.2-15.7) g/dL Hct (36.0-46.0) % MCV (80-95) fL MCH (27.0-33.0) pg MCHC (32.0-36.0) % RDW (11.7-14.6) % Plt Count (130-400) 10^3/uL MPV (8.0-11.0) fL Immature Gran % Neutrophils % Lymphocytes % Monocytes % Eosinophils % Basophils % Nucleated RBC % (0.0-0.3) % Absolute Neutrophils (1.2-6.7) 10^3/uL Absolute Lymphocytes (1.2-3.4) 10^3/uL Absolute Monocytes (0.1-0.8) 10^3/uL Absolute Eosinophils (0.0-0.7) 10^3/uL Absolute Basophils (0.0-0.2) 10^3/uL PT (9.1-11.1) sec INR (0.9-1.1) VBG pH (7.31-7.41) VBG pCO2 (41-51) mmHg VBG pO2 mmHg VBG HCO3 (23-28) mmol/L VBG Total CO2 (24-29) mmol/L VBG O2 Saturation % VBG Base Excess (-2-3) mmol/L VBG Lactate (0.6-1.4) mmol/L Sodium (136-145) mmol/L Potassium (3.5-5.1) mmol/L Chloride (98-107) mmol/L Carbon Dioxide (21.0-32.0) mmol/L Anion Gap (3-11) mmol/L BUN (7-18) mg/dL Creatinine (0.55-1.02) mg/dL Est GFR (CKD-EPI 2020) (mL/min/1.73m2) Glucose (74-106) mg/dL Calcium (8.5-10.1) mg/dL Magnesium (1.8-2.4) mg/dL Total Bilirubin (0.2-1.0) mg/dL AST (15-37) U/L ALT (14-59) U/L Alkaline Phosphatase (46-116) U/L Troponin I (<or=60) ng/L Cancelled Total Protein (6.4-8.2) g/dL Albumin (3.4-5.0) g/dL Procalcitonin ng/mL Urine Color (Yellow) Yellow Urine Clarity (Clear) Cloudy Urine pH (5-8) 7.0 Ur Specific [place] (1.005-1.025) 1.015 Urine Protein (Negative) mg/dL 100 H Urine Ketones (Negative) mg/dL Negative Urine Blood (Negative) Large H Urine Nitrite (Negative) Negative Urine Bilirubin (Negative) Negative Urine Urobilinogen (Up to 0.2) mg/dL 0.2 Ur Leukocyte Esterase (Negative) Large H Urine RBC (0-2) HPF 20-50 H Urine WBC (0-5) HPF >50 H Ur Epithelial Cells (Negative) HPF Rare Urine Crystals (Negative) HPF Negative Urine Bacteria (Negative) HPF Rare Urine Casts (Negative) LPF 0-2 Hyaline Urine Mucus (Negative) Negative Ur Culture Indicated? Yes Urine Glucose (Negative) mg/dL Negative COVID-19 Source Nasopharynx SARS-CoV-2 (PCR) Negative Influenza Type A (PCR) (Negative) Negative Influenza Type B (PCR) (Negative) Negative RSV (PCR) (Negative) Negative Patient ABO/Rh Antibody Screen Critical Care Time Critical Care Time Attestation: CC 45 minutes of time performed secondary to do urinary tract infection, sepsis with IV antibiotics, surgical consultation, telemetry monitoring, IV fluid resuscitation, interpretation and review of diagnostic labs and imaging and admission to the intensive care unit
[2023-04-02] MEDS: Omnipaque 300 MG/ML 50 ML BTL (15:28)
[2023-04-02] MEDS: Lidocaine 2% Jelly 6 ML SYR (15:28)
--- NOTE | 2023-04-02 15:36 | ROE_ITS ---
Date of service: 04/02/23 Time of Service: 15:36 Operative Note Operative Note DATE OF PROCEDURE: 04/02/23 PRE-OP DIAGNOSIS: right hydronephrosis POST-OP DIAGNOSIS: same sepsis PROCEDURE: cystoscopy, right retrograde pyelogram, insert right ureteral stent SURGEON: Jim Julio ANESTHESIA TYPE: General LMA/ETT Refer to Anesthesia Record ESTIMATED BLOOD LOSS: 0 PATHOLOGY: none sent COMPLICATIONS: None Patient was transported to: ICU Patient's condition: critical Implants: 7 german by 22 to 30 cm right ureteral stent Indications: This is a 58-year-old woman who has a history of multiple medical problems. She presented to the emergency department with fever and symptoms consistent with sepsis. Her urine looks infected and in fact she has had multiple Proteus urinary tract infections. A CT scan showed bilateral staghorn calculi and right hydronephrosis related to distal ureteral stones. He is agreeable to an urgent drainage procedure for her right kidney. Findings: right hydronephrosis with purulent fluid draining from right ureter after stent placed Procedure Description: The patient was brought to the operating room on 04/02/2023. She had already been given preoperative IV ceftriaxone. After successful induction of general anesthesia, she was placed in the dorsal lithotomy position. Her genitalia was prepped and draped. 2% Xylocaine jelly was instilled into the urethra to act as a local anesthetic. A 22 [place] rigid cystoscope was passed through the urethra into the bladder. The urethra and bladder were inspected with the 30 degree lens. Both ureteral orifices were identified. No blood was seen coming from either side. No stones were seen within the bladder. The right ureteral orifice was cannulated with a 5 [place] access catheter. Ret rograde pyelogram was obtained by injecting Omnipaque through the access catheter under fluoroscopic guidance. The ureter was markedly dilated and tortuous up to a dilated renal pelvis. A guidewire was then passed through the lumen of the access catheter and the catheter was removed. Purulent material was then seen draining from the ureteral orifice. A 7 [place] variable length stent was advanced over the wire. The proximal end of the stent was curled in the renal pelvis and the distal end was curled in the bladder. The positioning of the stent was confirmed both fluoroscopically and cystoscopically. The scope was removed. A 16 [place] Walls catheter was then passed through the urethra into the bladder. The catheter balloon was inflated with 10 cc of sterile water and the catheter was hooked to gravity drainage.
--- NOTE | 2023-04-02 16:29 | W.ANESPOSTOP ---
Postoperative Evaluation Date, Time and Location Date Performed: 04/02/23 Time Performed: 16:29 Patient Location: Intensive Care Unit Vital Signs Most Recent Imported Vital Signs: Most Recent Vital Signs Temp Pulse Resp BP Pulse Ox 37.0 C 104 H 21 119/84 100 04/02/23 16:21 04/02/23 16:21 04/02/23 16:21 04/02/23 16:21 04/02/23 16:21 Assessment Mental Status: Awake (Alert & Oriented to Patient Baseline) Airway and Respiratory Function: Patent airway with normal (patient baseline) respiratory exam Cardiovascular Function: Hemodynamically Unstable (See Explanation) (IV infusion of Levophed) Hydration Status: Adequately Hydrated Nausea & Vomiting: No Nausea or Vomiting Pain: Pain is tolerable per patient Peripheral Nerve Block: Patient did not receive a nerve block
[2023-04-02] MEDS: Metoprolol 5 MG/5 ML VIAL 10 MG IVP (17:09)
[2023-04-02] MEDS: dilTIAZem 25 MG/5 ML VIAL 15 MG IVP (17:34)
[2023-04-02] MEDS: CEFEPIME 1 GM in Normal Saline 50 ML IVPB (18:03)
[2023-04-02] MEDS: dilTIAZem 125 MG in Normal Saline 100 ML IV (18:50)
[2023-04-02] MEDS: Albuterol HFA 8 GM 60 PUFF INH IH ×2 (18:57→19:56)
--- NOTE | 2023-04-02 19:38 | W.PC.ACHO ---
Registration Status: REG [facility] [place] Primary Language: Preferred Language: Tajik ED Information & Data Chief Complaint Fever 04/02/23 14:49 [facility]riage [facility] N/V. 04/02/23 09:58 3-4 episodes of vomiting this am. AOx1. VSS. Denies pain. Medical / Surgical History (Last Reviewed 03/06/23 @ 07:21 by Jo Ann Ramires RN) Functional urinary incontinence Hydrocephalus Obesity (BMI 30-39.9) Osteoarthritis of knee Lactose intolerance Hypothyroidism Hyperlipidemia Chronic fatigue, unspecified Other amnesia (Last Updated 03/07/23 @ 07:57 by Cortney Tipton) History of esophagogastroduodenoscopy (~02/2023) History of laminectomy Colonoscopy - MAC (06/07/17) Most Recent Vital Signs Temperature 36.0 C L 04/02/23 16:00 Temperature Source Tympanic 04/02/23 09:58 Pulse 101 H 04/02/23 16:00 Pulse 107 H 04/02/23 14:01 Respiratory Rate 23 04/02/23 16:00 Respiratory Effort Normal 04/02/23 10:05 Blood Pressure 110/64 04/02/23 16:00 Blood Pressure Mean 80 04/02/23 14:01 Blood Pressure Position Sitting 04/02/23 09:58 Pulse Oximetry 100 04/02/23 16:00 Oxygen Delivery Method OxyMask 04/02/23 16:00 Oxygen Flow Rate 8 04/02/23 16:00 Allergies erythromycin base Allergy (Unknown, Verified 04/02/23 10:12) Unknown ibuprofen [From Motrin] Allergy (Unknown, Verified 04/02/23 10:12) Unknown lactose Adverse Reaction (Unknown, Unverified 04/02/23 10:12) Intolerance opium tincture Adverse Reaction (Unknown, Unverified 04/02/23 10:12) Mental Status Changes Pt reports having had Opium in the past with significant mental status changes with severe confusion. SEASONAL ALLERGIES Allergy (Mild, Uncoded 04/02/23 10:12) Active Medications Generic Name Dose Route Start Last Admin Trade Name Freq PRN Reason Stop Dose Admin Acetaminophen 1,000 mg in 100 mls @ 400 mls/hr 04/02/23 10:12 04/02/23 10:44 Ofirmev IVPB Infused Q8H PRN PRN Infusion Ringer's Solution 1,000 mls @ 125 mls/hr 04/02/23 10:15 04/02/23 15:45 IV 125 mls/hr INFUSION PHOEBE Infusion IV IV Catheter Type [Right Peripheral IV Antecubital] IV Catheter Gauge [Right 20 Antecubital] Diagnostics 04/02/23 04/02/23 04/02/23 Range/Units 12:59 10:40 10:25 WBC (4.4-10.8) 10^3/uL RBC (3.93-5.22) 10^6/uL Hgb (11.2-15.7) g/dL Hct (36.0-46.0) % MCV (80-95) fL MCH (27.0-33.0) pg MCHC (32.0-36.0) % RDW (11.7-14.6) % Plt Count (130-400) 10^3/uL MPV (8.0-11.0) fL Immature Gran % Neutrophils % Lymphocytes % Monocytes % Eosinophils % Basophils % Nucleated RBC % (0.0-0.3) % Absolute Neutrophils (1.2-6.7) 10^3/uL Absolute Lymphocytes (1.2-3.4) 10^3/uL Absolute Monocytes (0.1-0.8) 10^3/uL Absolute Eosinophils (0.0-0.7) 10^3/uL Absolute Basophils (0.0-0.2) 10^3/uL PT (9.1-11.1) sec INR (0.9-1.1) VBG pH (7.31-7.41) VBG pCO2 (41-51) mmHg VBG pO2 mmHg VBG HCO3 (23-28) mmol/L VBG Total CO2 (24-29) mmol/L VBG O2 Saturation % VBG Base Excess (-2-3) mmol/L VBG Lactate (0.6-1.4) mmol/L Sodium (136-145) mmol/L Potassium (3.5-5.1) mmol/L Chloride (98-107) mmol/L Carbon Dioxide (21.0-32.0) mmol/L Anion Gap (3-11) mmol/L BUN (7-18) mg/dL Creatinine (0.55-1.02) mg/dL Est GFR (CKD-EPI 2020) (mL/min/1.73m2) Glucose (74-106) mg/dL Calcium (8.5-10.1) mg/dL Magnesium (1.8-2.4) mg/dL Total Bilirubin (0.2-1.0) mg/dL AST (15-37) U/L ALT (14-59) U/L Alkaline Phosphatase (46-116) U/L Troponin I Cancelled (<or=60) ng/L Total Protein (6.4-8.2) g/dL Albumin (3.4-5.0) g/dL Procalcitonin ng/mL Urine Color Yellow (Yellow) Urine Clarity Cloudy (Clear) Urine pH 7.0 (5-8) Ur Specific [place] 1.015 (1.005-1.025) Urine Protein 100 H (Negative) mg/dL Urine Ketones Negative (Negative) mg/dL Urine Blood Large H (Negative) Urine Nitrite Negative (Negative) Urine Bilirubin Negative (Negative) Urine Urobilinogen 0.2 (Up to 0.2) mg/dL Ur Leukocyte Esterase Large H (Negative) Urine RBC 20-50 H (0-2) HPF Urine WBC >50 H (0-5) HPF Ur Epithelial Cells Rare (Negative) HPF Urine Crystals Negative (Negative) HPF Urine Bacteria Rare (Negative) HPF Urine Casts 0-2 Hyaline (Negative) LPF Urine Mucus Negative (Negative) Ur Culture Indicated? Yes Urine Glucose Negative (Negative) mg/dL COVID-19 Source Nasopharynx SARS-CoV-2 (PCR) Negative Influenza Type A (PCR) Negative (Negative) Influenza Type B (PCR) Negative (Negative) RSV (PCR) Negative (Negative) Patient ABO/Rh Antibody Screen 04/02/23 04/02/23 04/02/23 Range/Units 10:23 10:15 09:55 WBC 16.20 H (4.4-10.8) 10^3/uL RBC 3.88 L (3.93-5.22) 10^6/uL Hgb 10.6 L (11.2-15.7) g/dL Hct 32.3 L (36.0-46.0) % MCV 83 (80-95) fL MCH 27.3 (27.0-33.0) pg MCHC 32.8 (32.0-36.0) % RDW 14.7 H (11.7-14.6) % Plt Count 216 (130-400) 10^3/uL MPV 11.0 (8.0-11.0) fL Immature Gran % 0.7 Neutrophils % 95.6 Lymphocytes % 1.0 Monocytes % 2.2 Eosinophils % 0.1 Basophils % 0.4 Nucleated RBC % 0.0 (0.0-0.3) % Absolute Neutrophils 15.49 H (1.2-6.7) 10^3/uL Absolute Lymphocytes 0.16 L (1.2-3.4) 10^3/uL Absolute Monocytes 0.36 (0.1-0.8) 10^3/uL Absolute Eosinophils 0.02 (0.0-0.7) 10^3/uL Absolute Basophils 0.06 (0.0-0.2) 10^3/uL PT 12.5 H (9.1-11.1) sec INR 1.3 H (0.9-1.1) VBG pH 7.50 H (7.31-7.41) VBG pCO2 39 L (41-51) mmHg VBG pO2 39 mmHg VBG HCO3 30 H (23-28) mmol/L VBG Total CO2 28 (24-29) mmol/L VBG O2 Saturation 77 % VBG Base Excess 7 H (-2-3) mmol/L VBG Lactate 1.4 (0.6-1.4) mmol/L Sodium 131 L (136-145) mmol/L Potassium 3.6 (3.5-5.1) mmol/L Chloride 93 L (98-107) mmol/L Carbon Dioxide 28.5 (21.0-32.0) mmol/L Anion Gap 9.5 (3-11) mmol/L BUN 31 H (7-18) mg/dL Creatinine 2.3 H (0.55-1.02) mg/dL Est GFR (CKD-EPI 2020) 21.36 (mL/min/1.73m2) Glucose 230 H (74-106) mg/dL Calcium 9.8 (8.5-10.1) mg/dL Magnesium 1.7 L (1.8-2.4) mg/dL Total Bilirubin 0.9 (0.2-1.0) mg/dL AST 36 (15-37) U/L ALT 24 (14-59) U/L Alkaline Phosphatase 226 H (46-116) U/L Troponin I < 50 (<or=60) ng/L Total Protein 8.0 (6.4-8.2) g/dL Albumin 2.7 L (3.4-5.0) g/dL Procalcitonin 1.4 ng/mL Urine Color (Yellow) Urine Clarity (Clear) Urine pH (5-8) Ur Specific [place] (1.005-1.025) Urine Protein (Negative) mg/dL Urine Ketones (Negative) mg/dL Urine Blood (Negative) Urine Nitrite (Negative) Urine Bilirubin (Negative) Urine Urobilinogen (Up to 0.2) mg/dL Ur Leukocyte Esterase (Negative) Urine RBC (0-2) HPF Urine WBC (0-5) HPF Ur Epithelial Cells (Negative) HPF Urine Crystals (Negative) HPF Urine Bacteria (Negative) HPF Urine Casts (Negative) LPF Urine Mucus (Negative) Ur Culture Indicated? Urine Glucose (Negative) mg/dL COVID-19 Source Cancelled SARS-CoV-2 (PCR) Cancelled Influenza Type A (PCR) (Negative) Influenza Type B (PCR) (Negative) RSV (PCR) (Negative) Patient ABO/Rh O Positive Antibody Screen NEGATIVE 04/02/23 10:40 Urine Culture - Pending Urine - Reflex from Ua 04/02/23 10:15 Blood Culture - Pending Blood 04/02/23 10:23 Blood Culture - Pending Blood [id number] Documentation Fingerstick Glucose Start: 04/02/23 10:11 Freq: Status: Active Protocol: Activity Type Activity Date Activity User E-sign Co-sign Detail Recorded Client Recorded Date Recorded By Document 04/02/23 10:10 BKG DAEMON(10) [id number] 04/02/23 10:11 BKG DAEMON(10) Fingerstick Glucose Start: 04/02/23 15:58 Freq: Status: Active Protocol: Activity Type Activity Date Activity User E-sign Co-sign Detail Recorded Client Recorded Date Recorded By Document 04/02/23 15:56 BKG DAEMON(10) [id number] 04/02/23 15:58 BKG DAEMON(10) Intake and Output - 24 Hour Total 04/02/23 09:46 thru 04/02/23 16:00 Intake Total 1050 Balance 1050 Weight 104.326 kg Intake: IV 1050 Other: Urine Color Yellow Urine Appearance Cloudy Sediment Emesis Description None Urinary Catheter Time of insertion [Uretheral ( 15:20 Holguin)] Falls Risk Assessment History of Falls No History 04/02/23 10:05 Contributing Factors No Factors,Impairments 04/02/23 10:05 Ambulatory Aids Uses ambulatory device + 04/02/23 10:05 Tubes/Lines None 04/02/23 10:05 Gait Evaluation No gait disturbance 04/02/23 10:05 Cognition Cognitive impairment 04/02/23 10:05 Fall Total Score 48 04/02/23 10:05 Level of Risk Moderate Risk 04/02/23 10:05 Problems (Last Reviewed 03/06/23 @ 07:21 by Jo Ann Ramires RN) Staghorn kidney stones (Acute) Ureteral stone with hydronephrosis (Acute) Urinary tract infection in elderly patient (Acute) Anemia (Chronic) Alzheimers disease (Chronic) v v v v v v v v v Sending and/or Receiving Nurses: Please use comment section below to note any information pertinent to the patient hand-off not included above. Information / Comments: From ER. cysto retrograde pylogram with R stent placed for hydronephrosis. String still in. catheter placed. 16F holguin 10cc balloon. Norepinephrine currently running at 8mcg/min. lethargic. BG 169. IV R AC. Oxymask 5LPM. Report received from:Sarah PABLO RN
[2023-04-02] MEDS: Normal Saline Flush 10 ML SYR IVP (19:49)
[2023-04-02] MEDS: Apixaban 5 MG TAB PO (21:05)
[2023-04-02] MEDS: Donepezil 5 MG TAB 10 MG PO (21:05)
[2023-04-02] MEDS: Atorvastatin 40 MG TAB PO (21:05)
[2023-04-02] MEDS: Lactated Ringers 500 ML IV (21:23)
--- NOTE | 2023-04-02 23:05 | CE_ITS ---
Date of service: 04/02/23 Time of Service: 23:05 Event Note: This is a 78-year-old lady who has had deteriorating dementia with worsening overall health for the last 6 months recently not been able to keep food down. She has had nausea and vomiting with procedure planed and even as at intermediate when not stressed. She was found to have bilateral staghorn calculi with ureteral obstruction on the right and underwent ureteral stenting on the right the day of admission. She has not done well with atrial fibrillation with rapid ventricular response and is on IV diltiazem with peripheral lines in the ICU with continued borderline low blood pressures. Her blood pressure continues to be unstable with IV hydration using lactated Ringer's for treatment of sepsis syndrome and she is on cefepime though her advanced directives states that she did not want antibiotics for infection and aggressive therapy in the past with form filled out 06/04/2018 by Blessing Cantrell the patient's DPOA. I called Blessing Cantrell about possible need for peripheral line converted to a central line for norepinephrine because of septic shock and she did not want to be that aggressive referencing the previous advance directives not even wanting antibiotic therapy 06/04/2018. Patient is a DNR/DNI. We will continue IV hydration and peripheral line treatment with diltiazem infusion infusion overnight with IV antibiotics with patient not be placed on comfort care measures yet but to see how she is responding in the morning to make that decision. This may be more appropriate treatment even though she has had surgical intervention for this acute event. Blessing Cantrell was comfortable with this decision and appreciate the discussion. Patient will have IV morphine and IV Ativan as needed with continued IV fluid resuscitation and IV diltiazem as well as IV cefepime for now. Time Spent with Patient Time spent in critical care(minutes): 30 Time Spent Included: Coordination of care, Chart review, Discussing critically ill care with other medical staff and Discussing Hx and/or treatment with family
[2023-04-02] MEDS: Insulin Aspart 300 UNITS/3 ML PEN SC (23:11)
[2023-04-03] VITALS (80 sets, daily range): BP systolic 74–108; BP diastolic 45–66; PULSE 74–120; RESP 13–37; TEMP 36.2–37.2; O2SAT 89–99
[2023-04-03] MEDS: Lactated Ringers 1,000 ML 150 ML IV (02:52)
[2023-04-03] MEDS: CEFEPIME 1 GM in Normal Saline 50 ML IVPB (06:08)
[2023-04-03 07:29] LABS: HCT 29.8 % (36.0-46.0); HGB 9.4 g/dL (11.2-15.7); MCH 27.3 pg (27.0-33.0); MCHC 31.5 % (32.0-36.0); MCV 87 fL (80-95); MPV 11.3 fL (8.0-11.0); Platelet Count 180 10^3/uL (130-400); RBC 3.44 10^6/uL (3.93-5.22); RDW 14.8 % (11.7-14.6); RDW-SD 47.4 fL; WBC 16.74 10^3/uL (4.4-10.8)
[2023-04-03 07:43] LABS: Anion Gap 7.8 mmol/L (3-11); BUN 37 mg/dL (7-18); CO2 29.2 mmol/L (21.0-32.0); CREATININE 2.9 mg/dL (0.55-1.02); Calcium 9.3 mg/dL (8.5-10.1); Chloride 98 mmol/L (98-107); Estimated GFR 16.17 (mL/min/1.73m2); Glucose 191 mg/dL (74-106); Magnesium 1.8 mg/dL (1.8-2.4); Potassium 3.8 mmol/L (3.5-5.1); Sodium 135 mmol/L (136-145)
--- NOTE | 2023-04-03 08:22 | RESPIRATORY ---
Pt states that she sometimes uses a CPAP machine at home. Pt believes that her DME is [facility]. Pt states that she does not fully remember this though, or when she last used her machine.
--- NOTE | 2023-04-03 09:44 | INITIAL_ITS ---
Date of service: 04/03/23 Time of Service: 09:44 Care Management Initial Assmt Initial Assessment REASON FOR HOSPITALIZATION:: Severe sepsis; obstructing kidney stones PREVIOUS FUNCTIONAL STATUS/SOCIAL/FAMILY SUPPORTS:: Selin currently resides at the [facility]. Her sister, Blessing is her DPOA, and lives nearby, in [place], [place]. Her brother Nile also lives in [place], [place]. She requires support for her ADL's, which she receives at the [facility]. CURRENT FUNCTIONAL STATUS:: Selin was lying in bed when CM met with her. She was awake and alert, and engaged in conversation with CM. She stated that she is doing ok today. Per report, she was transitioned to comfort measures, as she had verbalized that she no longer wants aggressive interventions; her DPOA/sister agreed to this plan, honoring her wishes. Selin resides at the [facility], and will likely return for end of life care. She will be closely monitored overnight for any changes in her presentation. CM will continue to follow. ADVANCE DIRECTIVES:: [employer]ST and VTAD on file; Blesisng Cantrell listed as her HCA, as well as her DPOA. Has patient been provided with info about the portal/API?: Yes Did the patient sign up for the portal?: No CODE STATUS:: DNR/DNI INSURANCE COVERAGE / FINANCIAL ISSUES:: [facility] CURRENT HOME/COMMUNITY SERVICES/EQUIPMENT:: Selin resides at the [facility] PRIMARY CARE PHYSICIAN:: Janeth Rosas POTENTIAL DISCHARGE NEEDS:: Coordinated return to the [facility] vs end of life care at [facility] PATIENT/FAMILY EDUCATION NEEDS:: Review discharge instructions and limitations, discussion of self care needs including ask me three. ANTICIPATED BARRIERS TO DISCHARGE:: Selin may remain at [facility] for end of life care. TRANSPORTATION:: To be determined by plan of care. PLAN:: Selin has transitioned to comfort measures. She may return to the [facility] vs remain at [facility] for end of life care. CM will continue to support Selin and her family during this difficult time. PFSH All Active Problems (Updated 04/03/23 @ 09:54 by Albert Brunner MD) Comfort measures only status (Acute) Severe sepsis (Acute) Atrial fibrillation with RVR (Acute) Alzheimer disease (Chronic) Insulin dependent type 2 diabetes mellitus (Acute) Staghorn kidney stones (Acute) Ureteral stone with hydronephrosis (Acute) Urinary tract infection in elderly patient (Acute) Fall (Acute) Hyponatremia (Acute) Anemia (Chronic) Kidney disease (Acute) Murmur, cardiac (Acute) Emesis (Acute) Alzheimers disease (Chronic) Localized edema (Acute) Nail dystrophy (Acute) Vulvar abscess (Acute) Bilateral cellulitis of lower leg (Acute) Primary osteoarthritis of right knee (Acute) Injected: 08/04/21; 09/01/2020; 04/01/2019 Primary osteoarthritis of left knee (Acute) Injected: 08/04/21; 09/01/2020; 04/01/2019 Right knee pain (Acute) After discussing risks and benefits I injected Selin's right knee with 80 mg Depo-Medrol. She tolerated the procedure well. She knows that it may initially feel better and then worse. It will take about 10 days to know if this is helpful. If not improved will consider orthopedic consult Fracture of humerus, distal, left, closed (Acute) Hypothyroidism (Acute 11/26/16) Mild cognitive impairment (Acute 12/28/15) Sigmoid diverticulitis (Acute 06/07/17) Stenosis of cervical spine with myelopathy (Acute 12/28/15) Medical History Functional urinary incontinence Hydrocephalus Obesity (BMI 30-39.9) Osteoarthritis of knee Lactose intolerance Hypothyroidism Hyperlipidemia Chronic fatigue, unspecified Other amnesia Surgical History History of esophagogastroduodenoscopy (~02/2023) History of laminectomy Colonoscopy - MAC (06/07/17) Social History Smoking/Tobacco Use Status: Never Smoking risk assessment performed?: Yes Alcohol Intake: former Drug use: Never Substance use type: does not use Housing: residential Current gender identity: female
--- NOTE | 2023-04-03 09:49 | PGE_ITS ---
Date of Service Date of service: 04/03/23 Time of Service: 09:49 Assessment and Plan Assessment and plan (1) Comfort measures only status: Status: Acute Assessment and plan: - Patient initially presented from the [facility] found to have right obstructing ureteral stone with bilateral staghorn calculi and severe sepsis -Patient had palliative right ureteral stent placement last night -Patient subsequently became hypotensive likely secondary to atrial fibrillation with RVR that was subsequently controlled with IV diltiazem and overnight diltiazem drip -She has also been on cefepime -However, prolonged discussion was had with the patient's sister this morning, and given that the patient is not a good surgical candidate to have her bilateral staghorn calculi removed, her sister who is her DPOA, would like the patient to be transitioned to comfort measures only -stop checking vital signs, no further lab draws -As needed morphine, Ativan, and Haldol for pain anxiety and agitation -continue home metoprolol for rate control, and discontinue all other home medications -monitor patient over the next 24 to 48 hours to determine if she is likely to pass in the hospital or it may be candidate for outpatient hospice. (2) Severe sepsis: Status: Acute (3) Ureteral stone with hydronephrosis: Status: Acute (4) Staghorn kidney stones: Status: Acute (5) Atrial fibrillation with RVR: Status: Acute (6) Insulin dependent type 2 diabetes mellitus: Status: Acute (7) Alzheimer disease: Status: Chronic Subjective Subjective Interval history since last seen: Patient is more awake and alert this morning compared to last night. Prolonged discussion was held with the patient's sister who is her DPOA. Given that is not advisable for the patient to have bilateral staghorn calculi removed she is likely source of her infection, decision was made for the patient be transferred to [facility] status will be monitored over the next 24 to 48 hours to determine if she would be an outpatient hospice candidate or if she is to remain in the hospital in the event that she rapidly declines or has significant nursing require Exam Narrative Exam Narrative: Ill-appearing female laying in bed in no acute distress, oriented to person, atrial fibrillation with rate in the high 90s, lungs clear to auscultation Objective Last Vital Signs Temp 97.9 F 04/03/23 04:19 Pulse 89 04/03/23 08:00 Resp 22 04/03/23 08:00 BP 89/56 L 04/03/23 08:00 Pulse Ox 96 04/03/23 08:21 Laboratory Results - last 24 hr 04/02/23 04/02/23 04/02/23 09:55 10:15 10:23 WBC 16.20 H RBC 3.88 L Hgb 10.6 L Hct 32.3 L MCV 83 MCH 27.3 MCHC 32.8 RDW 14.7 H Plt Count 216 MPV 11.0 Immature Gran % 0.7 Neutrophils % 95.6 Lymphocytes % 1.0 Monocytes % 2.2 Eosinophils % 0.1 Basophils % 0.4 Nucleated RBC % 0.0 Absolute Neutrophils 15.49 H Absolute Lymphocytes 0.16 L Absolute Monocytes 0.36 Absolute Eosinophils 0.02 Absolute Basophils 0.06 PT 12.5 H INR 1.3 H VBG pH 7.50 H VBG pCO2 39 L VBG pO2 39 VBG HCO3 30 H VBG Total CO2 28 VBG O2 Saturation 77 VBG Base Excess 7 H VBG Lactate 1.4 Sodium 131 L Potassium 3.6 Chloride 93 L Carbon Dioxide 28.5 Anion Gap 9.5 BUN 31 H Creatinine 2.3 H Est GFR (CKD-EPI 2020) 21.36 Glucose 230 H Calcium 9.8 Magnesium 1.7 L Total Bilirubin 0.9 AST 36 ALT 24 Alkaline Phosphatase 226 H Troponin I < 50 Total Protein 8.0 Albumin 2.7 L Procalcitonin 1.4 Urine Color Urine Clarity Urine pH Ur Specific [place] Urine Protein Urine Ketones Urine Blood Urine Nitrite Urine Bilirubin Urine Urobilinogen Ur Leukocyte Esterase Urine RBC Urine WBC Ur Epithelial Cells Urine Crystals Urine Bacteria Urine Casts Urine Mucus Ur Culture Indicated? Urine Glucose COVID-19 Source Cancelled SARS-CoV-2 (PCR) Cancelled Influenza Type A (PCR) Influenza Type B (PCR) RSV (PCR) Patient ABO/Rh O Positive Antibody Screen NEGATIVE 04/02/23 04/02/23 04/02/23 10:25 10:40 12:59 WBC RBC Hgb Hct MCV MCH MCHC RDW Plt Count MPV Immature Gran % Neutrophils % Lymphocytes % Monocytes % Eosinophils % Basophils % Nucleated RBC % Absolute Neutrophils Absolute Lymphocytes Absolute Monocytes Absolute Eosinophils Absolute Basophils PT INR VBG pH VBG pCO2 VBG pO2 VBG HCO3 VBG Total CO2 VBG O2 Saturation VBG Base Excess VBG Lactate Sodium Potassium Chloride Carbon Dioxide Anion Gap BUN Creatinine Est GFR (CKD-EPI 2020) Glucose Calcium Magnesium Total Bilirubin AST ALT Alkaline Phosphatase Troponin I Cancelled Total Protein Albumin Procalcitonin Urine Color Yellow Urine Clarity Cloudy Urine pH 7.0 Ur Specific [place] 1.015 Urine Protein 100 H Urine Ketones Negative Urine Blood Large H Urine Nitrite Negative Urine Bilirubin Negative Urine Urobilinogen 0.2 Ur Leukocyte Esterase Large H Urine RBC 20-50 H Urine WBC >50 H Ur Epithelial Cells Rare Urine Crystals Negative Urine Bacteria Rare Urine Casts 0-2 Hyaline Urine Mucus Negative Ur Culture Indicated? Yes Urine Glucose Negative COVID-19 Source Nasopharynx SARS-CoV-2 (PCR) Negative Influenza Type A (PCR) Negative Influenza Type B (PCR) Negative RSV (PCR) Negative Patient ABO/Rh Antibody Screen 04/03/23 04/03/23 05:45 06:45 WBC 16.74 H RBC 3.44 L Hgb 9.4 L Hct 29.8 L MCV 87 D MCH 27.3 MCHC 31.5 L RDW 14.8 H Plt Count 180 MPV 11.3 H Immature Gran % Neutrophils % Lymphocytes % Monocytes % Eosinophils % Basophils % Nucleated RBC % Absolute Neutrophils Absolute Lymphocytes Absolute Monocytes Absolute Eosinophils Absolute Basophils PT INR VBG pH VBG pCO2 VBG pO2 VBG HCO3 VBG Total CO2 VBG O2 Saturation VBG Base Excess VBG Lactate Sodium 135 L Potassium 3.8 Chloride 98 Carbon Dioxide 29.2 Anion Gap 7.8 BUN 37 H Creatinine 2.9 H Est GFR (CKD-EPI 2020) 16.17 Glucose 191 H Calcium 9.3 Magnesium 1.8 Total Bilirubin AST ALT Alkaline Phosphatase Troponin I Total Protein Albumin Procalcitonin Urine Color Urine Clarity Urine pH Ur Specific [place] Urine Protein Urine Ketones Urine Blood Urine Nitrite Urine Bilirubin Urine Urobilinogen Ur Leukocyte Esterase Urine RBC Urine WBC Ur Epithelial Cells Urine Crystals Urine Bacteria Urine Casts Urine Mucus Ur Culture Indicated? Urine Glucose COVID-19 Source SARS-CoV-2 (PCR) Influenza Type A (PCR) Influenza Type B (PCR) RSV (PCR) Patient ABO/Rh Antibody Screen Time Spent with Patient Time Spent with Patient: >50 minutes Time was spent: preparing to see the patient(eg.review tests), obtaining and/or reviewing separately otained hiistory, ordering medications,tests, procedures, referring, communicating with other health critical care nurse specialist, indepentently interpreting results, counseling the patient and care coordination
--- NOTE | 2023-04-03 14:19 | CHAPLAIN ---
I visited with Selin when she was in the ICU this morning. Selin's sister, Blessing, visited with me this morning and explained that Selin has lived at [facility] for about 7 years and has had some dementia. Selin worked at a [employer] for many years. When I visited with Selin, she was resting in bed, but was very pleasant. She asked for some diet elizabeth seth and then asked if I would check on her hourly to see if she needed more drink. Her nurse, Ingrid Dos Santos NP, assured Selin they would attend to whatever she needs today. Selin has an Advance Directive from 2019 which states she does not want any heroic measures. Blessing told me that Selin was visited by Dr. Julio this morning and he determined she's not a cadidate for surgery but he was able to place a catheter in to relief some of her pain. I will continue to visit. Selin loves peanut M&Ms.
[2023-04-03] MEDS: ACETAMINOPHEN 1,000 MG/100 ML BTL 400 MG IVPB (16:25)
[2023-04-03] MEDS: Insulin Aspart 300 UNITS/3 ML PEN SC ×2 (17:19→20:59)
[2023-04-04] MEDS: Acetaminophen 325 MG TAB PO ×2 (01:51→07:55)
[2023-04-04] MEDS: Insulin Aspart 300 UNITS/3 ML PEN SC (07:57)
--- NOTE | 2023-04-04 09:26 | DSE_ITS ---
Date of service: 04/04/23 Time of Service: 09:26 DS: Diagnosis Discharge Diagnosis (1) Comfort measures only status: Status: Acute Asessment and Plan: - Patient initially presented from the [facility] found to have right obstructing ureteral stone with bilateral staghorn calculi and severe sepsis -Patient had palliative right ureteral stent placement last night -Patient subsequently became hypotensive likely secondary to atrial fibrillation with RVR that was subsequently controlled with IV diltiazem and overnight diltiazem drip -She has also been on cefepime -However, prolonged discussion was had with the patient's sister, and given that the patient is not a good surgical candidate to have her bilateral staghorn calculi removed, her sister who is her DPOA, would like the patient to be transitioned to comfort measures only -stop checking vital signs, no further lab draws -Comfort directed care to be continued at the [facility] (2) Severe sepsis: Status: Acute (3) Ureteral stone with hydronephrosis: Status: Acute (4) Staghorn kidney stones: Status: Acute (5) Atrial fibrillation with RVR: Status: Acute (6) Insulin dependent type 2 diabetes mellitus: Status: Acute (7) Alzheimer disease: Status: Chronic Discharge Plan Disposition Condition: Serious Condition: Fair Discharge Details Reason For Visit: Severe sepsis, obstructing kidney stones Admit Date/Time: 04/02/23 17:04 Admit Provider: Albert Brunner Attending Provider: Albert Brunner Primary Care Provider: Janeth Rosas Hospital Course Hospital Course: Patient initially presented from the [facility] with fever nausea vomiting and was found to have an obstructing right ureteral stone with bilateral staghorn calculi. She was taken to the OR with urology and had a palliative ureteral stent placed. However, after prolonged discussion with the patient's sister who is her DPOA, she understood that patient would be a poor candidate to have staghorn calculi removed and infection would persist. Therefore, decision was made for the patient to be made comfort measures only. Once it was determined that her needs could be met at the [facility] it was determined that she was ready for discharge. Home Meds and New Rx's Prescriptions: Continued insulin aspart U-100 [Novolog FlexPen U-100 Insulin] 100 unit/mL (3 mL) insulin pen 5 unit subcut TID albuterol sulfate 90 mcg/actuation HFA aerosol inhaler 2 puff inhalation TID insulin glargine [Lantus Solostar U-100 Insulin] 100 unit/mL (3 mL) insulin pen See Rx Instructions subcut QAM Rx Instructions: 33 U am and 10 U pm subcutaneously every morning; metoprolol succinate 25 mg tablet extended release 24 hr 12.5 mg PO BID (DME) blood-glucose meter [Contour Next USB Meter] 1 EACH misc 1 ea Miscellaneous DAILY (DME) lancets 1 EACH misc 1 ea Miscellaneous DAILY Qty: 100 Rx Instructions: FOR METER. NO INSULIN. DIAGNOSIS CODE 250.0__ Discontinued furosemide 20 mg tablet 60 mg PO BID donepezil 10 mg tablet 10 mg PO QHS levothyroxine 175 mcg tablet 175 mcg PO DAILY torsemide 20 mg tablet 80 mg PO DAILY potassium chloride 20 mEq tablet extended release 20 meq PO DAILY acetaminophen 650 mg tablet extended release 650 mg PO Q8H PRN Combivent Respimat 20-100 mcg/actuation mist 1 puff inhalation Q6H Trulicity 3 mg/0.5 mL pen injector 3 mg subcut QWEEK omeprazole 20 mg capsule,delayed release(DR/EC) 20 mg PO DAILY magnesium gluconate 12.5 mg magne- sium (250 mg) tablet 500 mg PO BID Centrum Complete 1 EACH tablet 1 tab-cap PO DAILY sulfasalazine 500 mg Tablet 500 mg PO BID lactase [Lactaid Fast Act] 9,000 unit Tablet 9,000 unit PO TID glucosamine sulfate [Synovacin] 500 mg Capsule 500 mg PO BID fluticasone propionate [Flonase Allergy Relief] 50 mcg/actuation Alligator,Suspension 1 spray INTRANASAL BID atorvastatin 40 mg Tablet 40 mg PO QPM aspirin [Aspir-81] 81 mg Tablet,Delayed Release (Dr/Ec) 81 mg PO DAILY Hold Instructions: Pt Stopped/Never Started vitamin B complex Tablet 1 tab PO DAILY ondansetron HCl 4 mg tablet 4 mg PO Q6H Eliquis 5 MG tablet 5 mg PO BID Qty: 60 2RF Rx Instructions: for atrial fibrillation Discharge Instructions Activity:: Activity as Tolerated Equipment/Supplies:: No Equipment Needed Diet:: As Tolerated DS: Summary Time Spent with Patient providing and/or coordinating discharge services: Less than 30 minutes Status at Discharge Functional status at discharge: wheelchair bound Overall status at discharge: patient is not back to baseline Mental Status: mental status grossly normal Speech and Movement: speech and movement normal Mood: congruent mood Affect: normal affect Exam Narrative Exam Narrative: Ill-appearing female laying in bed in no acute distress, oriented to person, atrial fibrillation with rate in the high 90s, lungs clear to auscultation Psych Mental Status: mental status grossly normal Speech and Movement: speech and movement normal Mood: congruent mood Affect: normal affect DS: Data Vitals/I&O Vitals and I&O: Vital Signs Temperature 99.0 F 04/03/23 15:04 Temperature Source Tympanic 04/03/23 04:19 Pulse 120 H 04/03/23 15:04 Pulse Rhythm Regular 04/03/23 15:04 Pulse 110 H 04/03/23 11:01 Respiratory Rate 22 04/03/23 15:04 Respiratory Effort Labored 04/03/23 15:04 Respiratory Depth Shallow 04/03/23 15:04 Respiratory Pattern Normal 04/03/23 09:00 Blood Pressure 104/64 04/03/23 15:04 Blood Pressure Mean 71 04/03/23 11:01 Blood Pressure Position Supine 04/03/23 09:00 Pulse Oximetry 95 04/03/23 15:04 Oxygen Delivery Method Room Air 04/03/23 15:04 Oxygen Flow Rate 0 04/03/23 15:04 Pain Level 7 04/04/23 07:56 Intake & Output 04/03/23 04/04/23 04/04/23 17:59 05:59 17:59 Intake Total 1480 / 1480 1735.584 / 3215.584 Output Total 400 / 400 675 / 1075 Balance 1080 / 1080 1060.584 / 2140.584 Weight 283 lb 8 oz Intake: IV 1235.584 / 1235.584 Oral 1480 / 1480 500 / 1980 Output: Urine 400 / 400 675 / 1075 Other: Urine Color Straw Light Naif Dark Naif Urine Appearance Hematuria Clear Comment Walls intact and draining cloudy dark naif urine with red tinge. Stool Size Large Stool Characteristics Soft Data Completed and Pending Labs on day of discharge: Preliminary micro results at discharge 04/02/23 10:40 Urine Culture - Preliminary Urine - Reflex from Ua Gram Negative Ramana 04/02/23 10:15 Blood Culture - Preliminary Blood NO GROWTH 24 HOURS 04/02/23 10:23 Blood Culture - Preliminary Blood NO GROWTH 24 HOURS PFSH All Active Problems (Updated 04/03/23 @ 09:54 by Albert Brunner MD) Comfort measures only status (Acute) Severe sepsis (Acute) Atrial fibrillation with RVR (Acute) Alzheimer disease (Chronic) Insulin dependent type 2 diabetes mellitus (Acute) Staghorn kidney stones (Acute) Ureteral stone with hydronephrosis (Acute) Urinary tract infection in elderly patient (Acute) Fall (Acute) Hyponatremia (Acute) Anemia (Chronic) Kidney disease (Acute) Murmur, cardiac (Acute) Emesis (Acute) Alzheimers disease (Chronic) Localized edema (Acute) Nail dystrophy (Acute) Vulvar abscess (Acute) Bilateral cellulitis of lower leg (Acute) Primary osteoarthritis of right knee (Acute) Injected: 08/04/21; 09/01/2020; 04/01/2019 Primary osteoarthritis of left knee (Acute) Injected: 08/04/21; 09/01/2020; 04/01/2019 Right knee pain (Acute) After discussing risks and benefits I injected Selin's right knee with 80 mg Depo-Medrol. She tolerated the procedure well. She knows that it may initially feel better and then worse. It will take about 10 days to know if this is helpful. If not improved will consider orthopedic consult Fracture of humerus, distal, left, closed (Acute) Hypothyroidism (Acute 11/26/16) Mild cognitive impairment (Acute 12/28/15) Sigmoid diverticulitis (Acute 06/07/17) Stenosis of cervical spine with myelopathy (Acute 12/28/15) Medical History Functional urinary incontinence Hydrocephalus Obesity (BMI 30-39.9) Osteoarthritis of knee Lactose intolerance Hypothyroidism Hyperlipidemia Chronic fatigue, unspecified Other amnesia Surgical History History of esophagogastroduodenoscopy (~02/2023) History of laminectomy Colonoscopy - MAC (06/07/17) Social History Smoking/Tobacco Use Status: Never Smoking risk assessment performed?: Yes Alcohol Intake: former Drug use: Never Substance use type: does not use Housing: alf Current gender identity: female Time Spent with Patient Time Spent with Patient: <45 minutes Time was spent: preparing to see the patient(eg.review tests), obtaining and/or reviewing separately otained hiistory, referring, communicating with other health career guidance counselor, indepentently interpreting results, counseling the patient and care coordination
--- NOTE | 2023-04-04 10:16 | CMDISCH_ITS ---
Date of service: 04/04/23 Time of Service: 10:16 LACE Index Scoring Tool Questions: Length of Stay (in days): 2 Was the patient admitted via the E.D.?: Yes Comorbidities: Diabetes w/o Complication, Dementia and Liver or Renal Disease E.D. Visits: 1 Answers: Total Score: 11 Risk of Readmission: High Risk Care Management Discharge Plan Reason for Hospitalization: Severe sepsis; obstructing kidney stones Discharge Plan: Selin will return to the [facility] today, where she resides. She will have comfort focused care at the [facility], provided by facility providers. She was transported by [facility]. She will follow up with palliative care and her discharge plan of care. She was happy to return home. Patient/Family Education Needs: Review discharge instructions and limitations, discussion of self care needs including ask me three. Services Needed at Discharge: Senior Care Facility (The [facility]) and Transportation ([facility]
== END 2023-04-04 11:15 | disposition skilled nursing facility (03) | DRG 872 ==
LOC: ER 13:42 → SUR 14:45 → ICU 17:13 → MS 04-03 14:09
PROVIDERS: Urology; Admitting Provider Family Medicine; Emergency Provider Physician Assistant; PCP Family Medicine; Visit Provider Family Medicine
PROC: 0T9680Z Drainage of Right Ureter with Drainage Device, Via Natural or Artificial Opening Endoscopic (ICD-10-PCS; CPT 74450; principal; 2023-04-02 14:00)
DX: A41.9 Sepsis, unspecified organism; N13.6 Pyonephrosis; E87.1 Hypo-osmolality and hyponatremia; R65.20 Severe sepsis without septic shock; Z79.4 Long term (current) use of insulin; E11.9 Type 2 diabetes mellitus without complications; R11.2 Nausea with vomiting, unspecified; Z79.01 Long term (current) use of anticoagulants; G30.9 Alzheimer's disease, unspecified; F02.80 Dementia in other diseases classified elsewhere, unspecified severity, without behavioral disturbance, psychotic disturbance, mood disturbance, and anxiety; D64.9 Anemia, unspecified; R60.0 Localized edema; E03.9 Hypothyroidism, unspecified; M48.02 Spinal stenosis, cervical region; M54.12 Radiculopathy, cervical region; M17.0 Bilateral primary osteoarthritis of knee; R53.82 Chronic fatigue, unspecified; E78.5 Hyperlipidemia, unspecified; Z51.5 Encounter for palliative care
CPT/HCPCS: 52332; 00123; 36415; 36416; 71250; 80048; 80053; 82805; 82962; 84145; 85027; 86850; 86900; 86901; 87040; 87077; 87635; 87637; 93005; 94640; 96361; 96365; 96367; 99222; 99291; 70450; 74176; 74420; 81003; 81015; 83605; 83735; 84484; 85025; 85610; 87086; 87186; 93010; 94664; 94760; 99233; 99239; J0131; J2405; J2704; J3010; Q9967